=== PATIENT | female | born 1935 | race Caucasian/White ===

== ENCOUNTER → 2017-07-11 | Outpatient (CLI) | payer MEDICARE, BC ==
--- NOTE | 2017-07-11 13:56 | US ---
EXAMINATION TYPE: US thyroid st tissue head/neck DATE OF EXAM: 07/11/2017 COMPARISON: CLINICAL HISTORY: Thyromegaly E01.0. dysphagia, persistent cough GLAND SIZE: Right Lobe: 5.4 x 4.3 x 3.0 cm Overall Parenchyma: heterogenous Left Lobe: 3.7 x 2.1 x 1.7 cm Overall Parenchyma: heterogeneous Isthmus Thickness: 0.8 cm NODULES RIGHT: # of nodules measured on right: 1 1. 2.0 X 1.7 x 1.7 cm hypoechoic complex nodule at the lower pole or posterior to thyroid, unable t o determine exact location, with poorly defined margins. This nodule is taller than wide and shows n o intranodular vascularity. Prior size: No prior LEFT: # of nodules measured on left: 1 1. 1.8 X 1.6 x 1.7 cm hypoechoic mixed nodule at the mid pole with poorly defined margins. This no dule is taller than wide and shows intranodular vascularity. Prior size: No prior ISTHMUS: # of nodules measured in the isthmus: 0 Bilateral neck scanned, no evidence of lymphadenopathy. Thyroid appears overall heterogenous. Right lobe appears enlarged with echogenic foci with shadowing seen throughout the parenchyma. IMPRESSION: Findings likely represent multinodular goiter.
== END | disposition home or self-care (01) ==
LOC: RADUSWWP 12:35
PROVIDERS: ATTEND Surgery
DX: E01.0 Iodine-deficiency related diffuse (endemic) goiter (principal)
CPT/HCPCS: 76536

== ENCOUNTER 2017-08-08 12:06 | Day surgery (SDC) | payer MEDICARE, BC ==
[2017-08-08 13:03] VITALS: RESP 14; TEMP 98.3
[2017-08-08 13:55] VITALS: BP 178/75; PULSE 103
--- NOTE | 2017-08-08 14:11 | US ---
ULTRASOUND GUIDED FNA THYROID BIOPSY: CLINICAL HISTORY: Bilateral thyroid nodules FINDINGS: The procedure was explained to the patient. The risks, complications, benefits and alternatives were discussed and any questions were answered. Informed consent was obtained. Patient was placed supin e on the ultrasound table and prepped and draped in the usual sterile fashion. Utilizing a 25 gauge needle, five passes were made into the breast and right and requested left thyroid nodule. Patient was stable throughout the procedure. Pathology is pending. All elements of maximal barrier technique were utilized. IMPRESSION: 1. Successful ultrasound guided FNA thyroid biopsy.
== END 2017-08-08 14:03 | disposition home or self-care (01) ==
LOC: RADPROMAIN 12:06
PROVIDERS: ATTEND Surgery
DX: E04.1 Nontoxic single thyroid nodule (principal)
CPT/HCPCS: 10022; 76942; 88173; 88305

== ENCOUNTER 2017-08-29 10:36 | Inpatient (IN) | payer MEDICARE, BC ==
[2017-08-29 12:21] LABS: Anisocytosis Slight; Basophils % (A) 0 %; CH 28.6; CHCM 31.5; Eosinophils % (A) 0 %; HCT 36.6 % (34.0-46.0); HDW 2.49; HGB 11.5 gm/dL (11.4-16.0); Hypochromasia Slight; Luc # (Auto) 0.12; Luc % (Auto) 2; Lymphocytes % (A) 15 %; MCH 28.7 pg (25.0-35.0); MCHC 31.5 g/dL (31.0-37.0); MCV 90.9 fL (80.0-100.0); Mean Platelet Volume 7.2; Monocytes # (A) 0.2 k/uL (0-1.0); Monocytes % (A) 2 %; Neutrophils # (A) 5.3 k/uL (1.3-7.7); Neutrophils % (A) 81 %; RBC 4.03 m/uL (3.80-5.40); RDW 16.7 % (11.5-15.5); WBC 6.5 k/uL (3.8-10.6); WBC (Perox) 6.64
[2017-08-29 12:32] LABS: Calcium 8.5 mg/dL (8.4-10.2); Total Bilirubin 0.4 mg/dL (0.2-1.3); Total Protein 6.3 g/dL (6.3-8.2)
[2017-08-29 12:35] LABS: Potassium 2.7 mmol/L (3.5-5.1)
--- NOTE | 2017-08-29 12:45 | ED ---
Nausea/Vomiting/Diarrhea HPI - General Chief complaint: Nausea/Vomiting/Diarrhea Stated complaint: dehydration/dialysis pt Time Seen by Provider: 08/29/17 12:05 Source: patient, family, RN notes reviewed Mode of arrival: wheelchair Limitations: no limitations - History of Present Illness Initial comments: This is a 81-year-old female history of renal failure who is on. He'll dialysis who states she's been feeling weak and fatigued throughout the past couple months. She came in today however because she had nausea vomiting diarrhea. She attributes this to eating a tuna fish sandwich yesterday. She states she was at a adventism doing a function she ate half of a tunafish sandwich at the adventism hours later she ate the other half but it was on refrigerated. Shortly after she started developing nausea vomiting and diarrhea. This persisted throughout the night apparently she had decreased oral intake she feels generally weak she did have some chills and she had a low-grade fever this morning of 99. She denies any dysuria initially however she states that she was on antibiotics recently because of the perineal dialysis to the fluid was clear up until yesterday when started developing cloudiness. He has been given antibiotics. She was seen and Dr. Andres's office today given antibiotics she is here now with the above symptoms. Patient does states she has chronic sinus drainage that has had a nonproductive cough for some time now. MD complaint: nausea, vomiting, diarrhea, abdominal pain - Related Data Home Medications Medication Instructions Recorded Confirmed Dorzolamide HCl/Timolol Maleat 1 drop LEFT EYE BID 05/10/14 08/29/17 [Cosopt Eye Drops] Ketorolac 0.5% Ophth Soln [Acular 1 drops RIGHT EYE BID 05/10/14 08/29/17 0.5%] Latanoprost Ophth [Xalatan 0.005%] 1 drops LEFT EYE HS 05/10/14 08/29/17 prednisoLONE ACETATE 1% OPHTH 1 drop RIGHT EYE BID 05/10/14 08/29/17 [Pred Forte 1%] Cholecalciferol [Vitamin D3] 2,000 unit PO DAILY 06/10/16 08/29/17 Fluticasone Nasal [place] [Flonase 1 spr EA NOSTRIL DAILY 06/10/16 08/29/17 Nasal [place]] Potassium Chloride [K-Tab ER] 10 meq PO DAILY 06/10/16 08/29/17 Vit C/E/Zn/Coppr/Lutein/Zeaxan 1 cap PO BID 06/10/16 08/29/17 [Preservision Areds 2 Softgel] Metoprolol Tartrate 25 mg PO DAILY 07/25/17 08/29/17 Calcitriol 0.5 mcg PO MOFR 08/29/17 08/29/17 Calcium Carb-Mag Carb-Folic 1 tab PO W/LUNCH 08/29/17 08/29/17 [Magnebind 400] Magnesium Oxide [Mag-Ox] 400 mg PO DAILY 08/29/17 08/29/17 Vitamin B12 Sl 500 mcg PO DAILY 08/29/17 08/29/17 Previous Rx's Medication Instructions Recorded Aspirin 81 mg PO DAILY #0 chew 06/13/16 Allergies Allergy/AdvReac Type Severity Reaction Status Date / Time sevelamer carbonate Allergy Unknown Itching Verified 08/29/17 11:59 [From Bryon] Review of Systems ROS Statement: Those systems with pertinent positive or pertinent negative responses have been documented in the HPI. ROS Other: All systems not noted in ROS Statement are negative. Past Medical History Past Medical History: Eye Disorder, Hyperlipidemia, Hypertension, Renal Disease , Thyroid Disorder Additional Past Medical History / Comment(s): KIDNEY DISEASE, ANEMIA, CHRONIC ALLERGIES,GLAUCOMA. Home dialysis. Thyroid nodules. History of Any Multi-Drug Resistant Organisms: None Reported Past Surgical History: Joint Replacement, Tonsillectomy Additional Past Surgical History / Comment(s): JOSSELIN KNEE REPLACEMENT, RIGHT HIP REPLACEMENT, RT EYE SURGERY FOR GLAUCOMA. Past Anesthesia/Blood Transfusion Reactions: Motion Sickness Past Psychological History: No Psychological Hx Reported Smoking Status: Never smoker Past Alcohol Use History: None Reported Past Drug Use History: None Reported - Past Family History Father Family Medical History: Myocardial Infarction ([place]) Mother Family Medical History: CVA/TIA Daughter(s) Family Medical History: Hypertension Son(s) Family Medical History: Hypertension General Exam - General Exam Comments Initial Comments: This is a well-developed well-nourished awake alert oriented 3 female Limitations: no limitations ENT exam: Present: mucous membranes dry Respiratory exam: Present: decreased breath sounds Cardiovascular Exam: Present: regular rate, normal rhythm GI/Abdominal exam: Present: soft (No definite guarding or rebound), hernia, other (. He'll dialysis catheters present minimal discomfort to palpation that is generalized.). Absent: bruit, pulsatile mass Rectal exam: Present: deferred Course Vital Signs 08/29/17 08/29/17 08/29/17 10:46 12:43 14:00 Temperature 98.8 F Pulse Rate 61 98 92 Respiratory 16 18 19 Rate Blood Pressure 135/90 123/67 149/76 O2 Sat by Pulse 98 97 100 Oximetry 08/29/17 15:23 Temperature 97.4 F L Pulse Rate 99 Respiratory 16 Rate Blood Pressure 141/69 O2 Sat by Pulse 94 L Oximetry Medical Decision Making - Medical Decision Making I did discuss findings with patient family members patient will be admitted with consultation by Dr. Andres. - Lab Data Result diagrams: 08/29/17 12:07 08/29/17 12:07 Lab Results 08/29/17 08/29/17 08/29/17 Range/Units 12:07 12:07 12:07 WBC 6.5 (3.8-10.6) k/uL RBC 4.03 (3.80-5.40) m/uL Hgb 11.5 (11.4-16.0) gm/dL Hct 36.6 (34.0-46.0) % MCV 90.9 (80.0-100.0) fL MCH 28.7 (25.0-35.0) pg MCHC 31.5 (31.0-37.0) g/dL RDW 16.7 H (11.5-15.5) % Plt Count 385 (150-450) k/uL Neutrophils % 81 % Lymphocytes % 15 % Monocytes % 2 % Eosinophils % 0 % Basophils % 0 % Neutrophils # 5.3 (1.3-7.7) k/uL Lymphocytes # 1.0 (1.0-4.8) k/uL Monocytes # 0.2 (0-1.0) k/uL Eosinophils # 0.0 (0-0.7) k/uL Basophils # 0.0 (0-0.2) k/uL Hypochromasia Slight Anisocytosis Slight Sodium 130 L (137-145) mmol/L Potassium 2.7 L* (3.5-5.1) mmol/L Chloride 90 L (98-107) mmol/L Carbon Dioxide 27 (22-30) mmol/L Anion Gap 13 mmol/L BUN 29 H (7-17) mg/dL Creatinine 4.30 H (0.52-1.04) mg/dL Est GFR (MDRD) Af Amer 12 (>60 ml/min/1.73 sqM) Est GFR (MDRD) Non-Af 10 (>60 ml/min/1.73 sqM) Glucose 139 H (74-99) mg/dL Calcium 8.5 (8.4-10.2) mg/dL Magnesium 1.4 L (1.6-2.3) mg/dL Total Bilirubin 0.4 (0.2-1.3) mg/dL AST 25 (14-36) U/L ALT 39 (9-52) U/L Alkaline Phosphatase 225 H (38-126) U/L Total Protein 6.3 (6.3-8.2) g/dL Albumin 2.5 L (3.5-5.0) g/dL Amylase 34 (30-110) U/L Lipase 91 (23-300) U/L Urine Color Urine Appearance (Clear) Urine pH (5.0-8.0) Ur Specific [place] (1.001-1.035) Urine Protein (Negative) Urine Glucose (UA) (Negative) Urine Ketones (Negative) Urine Blood (Negative) Urine Nitrite (Negative) Urine Bilirubin (Negative) Urine Urobilinogen (<2.0) mg/dL Ur Leukocyte Esterase (Negative) Urine RBC (0-5) /hpf Urine WBC (0-5) /hpf Ur Squamous Epith Cells (0-4) /hpf Urine Bacteria (None) /hpf Urine Mucus (None) /hpf Urine Yeast (Budding) (None) /hpf 08/29/17 Range/Units 12:40 WBC (3.8-10.6) k/uL RBC (3.80-5.40) m/uL Hgb (11.4-16.0) gm/dL Hct (34.0-46.0) % MCV (80.0-100.0) fL MCH (25.0-35.0) pg MCHC (31.0-37.0) g/dL RDW (11.5-15.5) % Plt Count (150-450) k/uL Neutrophils % % Lymphocytes % % Monocytes % % Eosinophils % % Basophils % % Neutrophils # (1.3-7.7) k/uL Lymphocytes # (1.0-4.8) k/uL Monocytes # (0-1.0) k/uL Eosinophils # (0-0.7) k/uL Basophils # (0-0.2) k/uL Hypochromasia Anisocytosis Sodium (137-145) mmol/L Potassium (3.5-5.1) mmol/L Chloride (98-107) mmol/L Carbon Dioxide (22-30) mmol/L Anion Gap mmol/L BUN (7-17) mg/dL Creatinine (0.52-1.04) mg/dL Est GFR (MDRD) Af Amer (>60 ml/min/1.73 sqM) Est GFR (MDRD) Non-Af (>60 ml/min/1.73 sqM) Glucose (74-99) mg/dL Calcium (8.4-10.2) mg/dL Magnesium (1.6-2.3) mg/dL Total Bilirubin (0.2-1.3) mg/dL AST (14-36) U/L ALT (9-52) U/L Alkaline Phosphatase (38-126) U/L Total Protein (6.3-8.2) g/dL Albumin (3.5-5.0) g/dL Amylase (30-110) U/L Lipase (23-300) U/L Urine Color Yellow Urine Appearance Cloudy H (Clear) Urine pH 6.0 (5.0-8.0) Ur Specific [place] 1.020 (1.001-1.035) Urine Protein 3+ H (Negative) Urine Glucose (UA) 2+ H (Negative) Urine Ketones Trace H (Negative) Urine Blood Small H (Negative) Urine Nitrite Negative (Negative) Urine Bilirubin Negative (Negative) Urine Urobilinogen <2.0 (<2.0) mg/dL Ur Leukocyte Esterase Small H (Negative) Urine RBC 12 H (0-5) /hpf Urine WBC 47 H (0-5) /hpf Ur Squamous Epith Cells 71 H (0-4) /hpf Urine Bacteria Occasional H (None) /hpf Urine Mucus Rare H (None) /hpf Urine Yeast (Budding) Moderate H (None) /hpf - EKG Data -: EKG Interpreted by Me (Sinus rhythm rate of 98. Interval 160 QRS latter-day 78 QT since QTC of 3) EKG shows normal: sinus rhythm - Radiology Data Radiology results: report reviewed (Review the imaging there is some suspicious evidence of left lower lobe increased markings also evidence of side increased peritracheal stripe with possible deviation to the left. This is not acute), image reviewed Disposition Clinical Impression: Gastroenteritis, Food poisoning, Hypokalemia, Hypomagnesemia, End stage renal disease Disposition: ADMITTED IP TO THIS [facility] Condition: Stable Referrals: Mario Okeefe MD [Primary Care Provider] - 1-2 days
[2017-08-29 13:00] LABS: Appearance,Urine Cloudy (Clear); Bacteria,Urine Occasional /hpf; Bilirubin,Urine Negative (Negative); Glucose,Urine (UA) 2+ (Negative); Ketones,Urine Trace (Negative); Leukocyte Esterase,Urine Small (Negative); Mucus,Urine Rare /hpf; Nitrite,Urine Negative (Negative); Particle Count 8472; Protein,Urine 3+ (Negative); RBC,Urine 12 /hpf (0-5); Squamous Epithelial Cell,Urine 71 /hpf (0-4); UA Billing (MACRO vs. MICRO) MICRO; Urobilinogen,Urine <2.0 mg/dL (<2.0); WBC,Urine 47 /hpf (0-5)
--- NOTE | 2017-08-29 13:18 | XR ---
EXAMINATION TYPE: XR chest 2V DATE OF EXAM: 08/29/2017 COMPARISON: None HISTORY: 81-year-old female with cough TECHNIQUE: Frontal and lateral views FINDINGS: There is right paratracheal soft tissue prominence with some deviation of the trachea towards the lef t. Heart is normal size. Aorta and pulmonary vasculature within normal limits. There is a focal perip heral left basilar opacity partially silhouetting the hemidiaphragm. No significant pleural effusion. IMPRESSION: 1. Focal peripheral left basilar opacity could represent pneumonia in the correct clinical setting. F ollow-up after treatment to ensure clearance. 2. Right paratracheal soft tissue with deviation of the trachea towards the left. Findings could repr esent mass effect from an enlarged thyroid gland, lymphadenopathy, or a superior mediastinal mass. Co rrelate with any known diagnosis.
[2017-08-29] MEDS ORDERED: MAGNESIUM SULFATE-D5W PMX 1 GM in DEXTROSE/WATER 1 100ML.BAG IVPB ONE (13:57)
[2017-08-29] MEDS ORDERED: DIALYSIS (PERIT 2.5%) 2,000 ML 50 G/2,000 ML BAG INTRAPERIT SCH (14:15)
[2017-08-29] MEDS ORDERED: NALOXONE 0.4 MG/ML 1 ML VIAL IV PRN (15:45)
[2017-08-29] MEDS ORDERED: 0.9% NACL WITH KCL 20 MEQ/L 1,000 ML IV SCH (17:00)
[2017-08-29] MEDS ORDERED: HYDROmorphone 0.5 MG/0.5 ML SYRINGE IVP PRN (18:01)
[2017-08-29] MEDS ORDERED: TEMAZEPAM 15 MG CAP PO PRN (18:01)
[2017-08-29] MEDS ORDERED: VANCOMYCIN IV PER PHARMACY 1 EACH MISC MISCELLANE PRN (18:02)
[2017-08-29 18:21] LABS: RBC, Body Fluid 150 /uL
[2017-08-29 18:49] LABS: Potassium 2.7 mmol/L (3.5-5.1)
[2017-08-29] MEDS ORDERED: VANCOMYCIN 1,500 MG in SODIUM CHLORIDE 0.9% 250 ML IVPB ONE (19:00)
--- NOTE | 2017-08-29 19:40 | HP ---
HISTORY AND PHYSICAL CHIEF COMPLAINTS: Nausea, vomiting, diarrhea. HISTORY: This 81-year-old woman with a past medical history of multiple medical problems including history of chronic renal failure on CAPD, history hypertension, hyperlipidemia, hypothyroidism, history of degenerative joint disease, being followed by Dr. Bailey Amaro in the outpatient setting apparently had a fall about 1 month ago. Subsequently patient had cloudy dialysate from the CAPD. Patient was given vancomycin intraperitoneal. The fluid cleared, but since yesterday the patient went to [employer] and patient apparently ate half of a tuna fish sandwich and subsequently ate half of the sandwich later. Patient developed nausea and diarrhea. Patient severely dehydrated, patient had hypokalemia, patient admitted for further evaluation and treatment. There is no history of fever, rigors. No headache, loss of consciousness or seizures. PAST MEDICAL HISTORY: Hypertension, hyperlipidemia, chronic renal failure on CAPD. MEDICATIONS: Prior to admission home medications are: 1. Prednisone acetate 1 drop right eye b.i.d. 2. Vitamin B12. 3. K-Tab 10 mg p.o. daily. 4. Metoprolol 25 mg p.o. daily. 5. Magnesium oxide 400 daily. 6. Xalatan 1 drop left eye q.h.s. 7. ophthalmic eyedrops. 8. Fluticasone. 9. Cosopt 1 drop b.i.d. 10.Vitamin D3 2000 daily. 11.MagneBind 1 tab daily with lunch. 12.Calcitriol 0.5 b.i.d. 13.Aspirin 81 mg daily. ALLERGIES: RENAGEL. FAMILY HISTORY: History of myocardial infarction in the family. SOCIAL HISTORY: No history of smoking, no history of alcohol. REVIEW OF SYSTEMS: ENT: Diminished hearing, diminished vision. CARDIOVASCULAR: As mentioned earlier. RESPIRATORY: As mentioned earlier. GI: As mentioned earlier. : As mentioned earlier. NERVOUS SYSTEM: No numbness or weakness. ALLERGY/IMMUNOLOGY: No asthma or hayfever. MUSCULOSKELETAL: As mentioned earlier. HEMATOLOGY/ONCOLOGY: No history of anemia. ENDOCRINE: No history of diabetes or hypothyroidism. CONSTITUTIONAL: As mentioned earlier. DERMATOLOGY: Negative. RHEUMATOLOGY: Negative. PSYCHIATRY: As mentioned earlier. PHYSICAL EXAM: Patient is alert, oriented x3. The pulse is 109, blood pressure is 170/92, respiration 18, temperature 100.7, pulse ox 94% on room air. HEENT: Conjunctivae normal. Oral mucosa dry. NECK: No jugular venous distention. No carotid bruit. No lymph node enlargement. No thyroid enlargement. CARDIOVASCULAR: S1, S2. No S3, no S4. RESPIRATORY: Breath sounds diminished in the bases. A few scattered rhonchi. ABDOMEN: Soft, obese, nontender. No mass palpable. No guarding, no rigidity. Bowel sounds diminished. LEGS: No edema, no swelling. NERVOUS SYSTEM: Higher function as mentioned earlier. Moves all four limbs. No focal motor sensory deficits. LYMPHATICS: No lymphadenopathy in the neck, axillae or groin. SKIN: No ulcer, rash, bleeding. LABS: At this time shows CBC within normal limits. Sodium 130, potassium 2.9, creatinine is 4.3. ASSESSMENT: 1. Nausea, vomiting, diarrhea, possible acute gastroenteritis. 2. Possible sepsis with peritonitis. 3. History of recent bacterial peritonitis. 4. Chronic renal failure on CAPD. 5. Hyponatremia. 6. Hypokalemia. 7. Hypertension. 8. Hyperlipidemia. 9. Degenerative joint disease. RECOMMENDATIONS AND DISCUSSION: In this 81-year-old woman who presented with multiple complex medical issues, at this time we will monitor the patient closely. Continue the current medications. We will obtain stool for C difficile. Obtain cultures. Empiric antibiotics. Follow up closely with Nephrology. Guarded prognosis because of multiple complex medical issues. Further recommendations to follow. Copy of dictation forwarded to Bailey Amaro who is the primary physician. PAULINE / PEÑAN: [id number] / MTDD
[2017-08-29] MEDS: 0.9% NACL WITH KCL 20 MEQ/L 1,000 ML IV SCH (21:16)
[2017-08-29] MEDS: VIT A,C & E-LUTEIN-MINERALS 1 EACH TAB PO SCH (21:16)
[2017-08-29] MEDS: DORZOLAMIDE-TIMOLOL 2-0.5% DROPS 10 ML BTL LEFT EYE SCH (21:17)
[2017-08-29] MEDS: LATANOPROST 0.005% OPHTH DROPS 2.5 ML BTL LEFT EYE SCH (21:18)
[2017-08-29] MEDS: prednisoLONE ACETATE 1% OPHTH DROPS 5 ML BTL RIGHT EYE SCH (21:18)
[2017-08-29] MEDS: PANTOPRAZOLE 40 MG/10 ML VIAL IVP SCH (21:19)
[2017-08-29] MEDS: POTASSIUM CHLORIDE ER 20 MEQ TAB.ER PO SCH ×2 (21:19→23:06)
[2017-08-29] MEDS: KETOROLAC 0.5% OPHTH DROPS 5 ML BTL RIGHT EYE SCH (23:06)
[2017-08-29] MEDS: DIALYSIS (PERIT 1.5%) 2,000 ML 30 G/2,000 ML BAG INTRAPERIT SCH (23:45)
[2017-08-30] MEDS: DIALYSIS (PERIT 1.5%) 2,000 ML 30 G/2,000 ML BAG INTRAPERIT SCH (04:36)
[2017-08-30] MEDS ORDERED: LACTULOSE 20 GM/30 ML CUP PO PRN (07:54)
--- NOTE | 2017-08-30 08:09 | XR ---
EXAMINATION TYPE: XR abdomen 2V DATE OF EXAM: 08/30/2017 8:02 AM CLINICAL HISTORY: Abdominal pain TECHNIQUE: Single supine image of the abdomen is obtained. COMPARISON: None. FINDINGS: Scattered gas is seen in non-distended but mildly prominent small bowel loops and large bow el loops. The lung bases are clear and the osseous structures are intact. Dystrophic calcifications from most likely related to degenerative uterine fibroids are seen within the pelvis. Right femoral a rthroplasty is noted with mild degenerative changes the left femoral acetabular joint. Probable lamel lated gallstone is seen within the right upper quadrant. S-shaped scoliotic curvature of the visualiz ed thoracolumbar spine is seen with moderate degenerative changes. Peritoneal dialysis catheter overl ies the right lower quadrant. IMPRESSION: 1. Nonobstructive bowel gas pattern. Mildly prominent air-filled loops of bowel may represent mild il eus. 2. Probable lamellated singular gallstone.
[2017-08-30 08:26] LABS: Anisocytosis Slight; Basophils % (A) 1 %; CH 28.3; CHCM 30.7; Eosinophils # (A) 0.1 k/uL (0-0.7); Eosinophils % (A) 3 %; HCT 35.2 % (34.0-46.0); HDW 2.45; HGB 10.9 gm/dL (11.4-16.0); Hypochromasia Slight; Luc # (Auto) 0.14; Luc % (Auto) 4; Lymphocytes # (A) 1.2 k/uL (1.0-4.8); Lymphocytes % (A) 32 %; MCH 28.6 pg (25.0-35.0); MCHC 30.9 g/dL (31.0-37.0); MCV 92.6 fL (80.0-100.0); Mean Platelet Volume 7.6; Monocytes # (A) 0.2 k/uL (0-1.0); Monocytes % (A) 4 %; Neutrophils # (A) 2.1 k/uL (1.3-7.7); Neutrophils % (A) 56 %; RBC 3.81 m/uL (3.80-5.40); RDW 16.6 % (11.5-15.5); WBC 3.7 k/uL (3.8-10.6); WBC (Perox) 4.16
[2017-08-30] MEDS ORDERED: DIALYSIS DEX INTRAPERIT ONE (08:30)
[2017-08-30] MEDS ORDERED: CEFTAZIDIME INTRAPERIT ONE (08:30)
[2017-08-30] MEDS ORDERED: VANCOMYCIN INTRAPERIT ONE (08:30)
[2017-08-30] MEDS: DIALYSIS DEX INTRAPERIT ONE ×2 (08:39→13:44)
[2017-08-30] MEDS: VANCOMYCIN INTRAPERIT ONE ×2 (08:39→13:44)
[2017-08-30] MEDS: CEFTAZIDIME INTRAPERIT ONE ×2 (08:39→13:44)
[2017-08-30 08:40] LABS: Calcium 8.7 mg/dL (8.4-10.2); Magnesium 1.7 mg/dL (1.6-2.3); Potassium 4.3 mmol/L (3.5-5.1)
[2017-08-30] MEDS ORDERED: POTASSIUM CHLORIDE ER 10 MEQ TAB.ER.PRT PO SCH (09:00)
[2017-08-30] MEDS ORDERED: ASPIRIN 81 MG PO SCH (09:00)
--- NOTE | 2017-08-30 09:24 | P.NPCON ---
History of Present Illness - Reason for Consult end stage renal disease - History of Present Illness Reason for consultation: End-stage renal disease History of present illness: Patient is a 81-year-old female seen in renal consultation for end-stage renal disease. She is maintained on peritoneal dialysis. Patient presented to the hospital after developing abdominal pain along with vomiting and diarrhea after she had leftover tuna fish. Patient was recently diagnosed with gram-negative peritonitis and has completed a three-week course of intraperitoneal Fortaz. Her recent cell count was down to 6. However this admission are cell count is again over 4000 and there is concern for possible gram-positive organism since she just completed antibiotics for gram-negative peritonitis. Her fluid has been cloudy. Denies chest pain or shortness of breath. Admits to abdominal cramping. Her diarrhea seems to have resolved. She continues to have dry heaves. Potassium was low on admission which was replaced and is up to 4.3 this morning. She was also febrile on admission with a temperature of 100.7. Patient states she's been following the technique properly. Vital signs are stable. General: The patient appeared well nourished and normally developed. HEENT: Head exam is unremarkable. Neck is without jugular venous distension. LUNGS: Lungs are clear to auscultation and percussion. Breath sounds decreased. HEART: Rate and Rhythm are regular. First and second heart sounds normal. No murmurs, rubs or gallops. ABDOMEN: Abdominal exam reveals normal bowel sounds. Moderately distended. Generalized tenderness. EXTREMITITES: No clubbing, cyanosis, or edema. Past Medical History Past Medical History: Eye Disorder, Hyperlipidemia, Hypertension, Renal Disease , Thyroid Disorder Additional Past Medical History / Comment(s): KIDNEY DISEASE, ANEMIA, CHRONIC ALLERGIES[sinus drainage],GLAUCOMA. Home dialysis. Thyroid nodules. History of Any Multi-Drug Resistant Organisms: None Reported Past Surgical History: Joint Replacement, Tonsillectomy Additional Past Surgical History / Comment(s): JOSSELIN KNEE REPLACEMENT, RIGHT HIP REPLACEMENT, RT EYE SURGERY FOR GLAUCOMA. Past Anesthesia/Blood Transfusion Reactions: Motion Sickness Past Psychological History: No Psychological Hx Reported Smoking Status: Never smoker Past Alcohol Use History: None Reported Past Drug Use History: None Reported - Past Family History Father Family Medical History: Myocardial Infarction ([place]) Mother Family Medical History: CVA/TIA Daughter(s) Family Medical History: Hypertension Son(s) Family Medical History: Hypertension Medications and Allergies Home Medications Medication Instructions Recorded Confirmed Type Dorzolamide HCl/Timolol Maleat 1 drop LEFT EYE BID 05/10/14 08/29/17 History [Cosopt Eye Drops] Ketorolac 0.5% Ophth Soln [Acular 1 drops RIGHT EYE BID 05/10/14 08/29/17 History 0.5%] Latanoprost Ophth [Xalatan 0.005%] 1 drops LEFT EYE HS 05/10/14 08/29/17 History prednisoLONE ACETATE 1% OPHTH 1 drop RIGHT EYE BID 05/10/14 08/29/17 History [Pred Forte 1%] Cholecalciferol [Vitamin D3] 2,000 unit PO DAILY 06/10/16 08/29/17 History Fluticasone Nasal [place] [Flonase 1 spr EA NOSTRIL DAILY 06/10/16 08/29/17 History Nasal [place]] Potassium Chloride [K-Tab ER] 10 meq PO DAILY 06/10/16 08/29/17 History Vit C/E/Zn/Coppr/Lutein/Zeaxan 1 cap PO BID 06/10/16 08/29/17 History [Preservision Areds 2 Softgel] Aspirin 81 mg PO DAILY #0 chew 06/13/16 08/29/17 Rx Metoprolol Tartrate 25 mg PO DAILY 07/25/17 08/29/17 History Calcitriol 0.5 mcg PO MOFR 08/29/17 08/29/17 History Calcium Carb-Mag Carb-Folic 1 tab PO W/LUNCH 08/29/17 08/29/17 History [Magnebind 400] Magnesium Oxide [Mag-Ox] 400 mg PO DAILY 08/29/17 08/29/17 History Vitamin B12 Sl 500 mcg PO DAILY 08/29/17 08/29/17 History Allergies Allergy/AdvReac Type Severity Reaction Status Date / Time sevelamer carbonate Allergy Unknown Itching Verified 08/29/17 11:59 [From Bryon] Physical Exam Vitals: Vital Signs Temp Pulse Pulse Resp BP BP Pulse Ox 08/30/17 07:00 96.9 F L 89 16 150/77 97 08/29/17 23:00 99.2 F 89 16 140/63 93 L 08/29/17 20:51 115 H 147/73 08/29/17 17:57 100.4 F H 107 H 18 123/58 95 08/29/17 16:50 100.7 F H 109 H 19 117/57 94 L 08/29/17 16:10 101 H 19 153/70 95 08/29/17 15:23 97.4 F L 99 16 141/69 94 L 08/29/17 14:00 92 19 149/76 100 08/29/17 12:43 98 18 123/67 97 08/29/17 10:46 98.8 F 61 16 135/90 98 Intake and Output 08/29/17 08/30/17 08/30/17 22:59 06:59 14:59 Other: # Bowel Movements 1 Weight 71 kg Results - Lab Results Most recent lab results Calcium 8.7 mg/dL (8.4-10.2) 08/30/17 07:35 Magnesium 1.7 mg/dL (1.6-2.3) 08/30/17 07:35 08/30/17 07:35 08/30/17 07:35 Assessment and Plan Plan: Assessment: #1. End-stage renal disease maintained on peritoneal dialysis. #2. Recent gram-negative peritonitis status post 3 weeks of intraperitoneal Fortaz. Recent cell count was 6 earlier this week. #3. Recurrent peritonitis with cell count greater than 4000. She did receive 2 g of intraperitoneal vancomycin on 08/29/2017. #4. Hypokalemia from GI losses as well as from peritoneal dialysis. Magnesium also on the lower side. Improved post replacement. #5. Hypomagnesemia anemia from GI losses. Improved posterior placement. #6. Chronic kidney disease mineral bone disease maintained on magnabind and calcitriol. Plan: Continue with 2 L exchanges for 2.5% every 6 hours. Fortaz 1 g intraperitoneally daily. Repeat cell count culture and Gram stain today. Check abdominal x-ray. Lactulose as needed for constipation. Check phosphorus level. Tylenol Extra Strength as needed for pain. She will need re-education on peritoneal dialysis technique as an outpatient. Thank you for the consultation. I will continue to follow the patient with you during her hospital stay.
[2017-08-30] MEDS: ACETAMINOPHEN TAB 500 MG TAB PO PRN (09:33)
[2017-08-30] MEDS ORDERED: cefTAZidime 1.25 GM in DIALYSIS (PERITONL) DEX 2.5% 2,000 ML INTRAPERIT ONE (10:00)
[2017-08-30] MEDS: DORZOLAMIDE-TIMOLOL 2-0.5% DROPS 10 ML BTL LEFT EYE SCH ×2 (11:23→20:27)
[2017-08-30] MEDS: FLUTICASONE 50MCG/SPRAY NASAL 16GM EA NOSTRIL SCH (11:23)
[2017-08-30] MEDS: prednisoLONE ACETATE 1% OPHTH DROPS 5 ML BTL RIGHT EYE SCH ×2 (11:24→20:27)
[2017-08-30] MEDS: KETOROLAC 0.5% OPHTH DROPS 5 ML BTL RIGHT EYE SCH ×2 (11:24→20:26)
[2017-08-30] MEDS: IOHEXOL 350 MG/ML 25 ML BOTTLE (ORAL USE) PO PRN ×2 (11:34→12:43)
[2017-08-30] MEDS: PANTOPRAZOLE 40 MG/10 ML VIAL IVP SCH ×2 (12:18→20:27)
[2017-08-30] MEDS: METOPROLOL TARTRATE 25 MG TAB PO SCH (12:45)
[2017-08-30] MEDS: VIT A,C & E-LUTEIN-MINERALS 1 EACH TAB PO SCH ×2 (12:47→18:50)
[2017-08-30] MEDS: MAGNESIUM OXIDE 400 MG TAB PO SCH (12:48)
[2017-08-30] MEDS: CHOLECALCIFEROL 1,000 UNIT TAB PO SCH (12:48)
[2017-08-30] MEDS: CALCIUM CARB-MAG CARB-FOLIC 1 EACH TAB PO SCH (12:48)
[2017-08-30] MEDS: CALCITRIOL 0.25 MCG CAP PO SCH (12:48)
[2017-08-30] MEDS: CYANOCOBALAMIN 500 MCG TAB PO SCH (12:48)
--- NOTE | 2017-08-30 14:41 | CT ---
EXAMINATION TYPE: CT abdomen pelvis wo con DATE OF EXAM: 08/30/2017 COMPARISON: NONE INDICATION: Distention post dialysis DLP: 526.5 mGycm, Automated exposure control for dose reduction was used. CONTRAST: mL of . Study performed with Oral Contrast TECHNIQUE: Axial images were obtained from above the diaphragm to the pubic rami in the axial plane a t 5 mm thick sections. Reconstructed images are reviewed on the computer in the coronal plane. FINDINGS: Very Limited CT sections are obtained the lung bases. Minimal subsegmental atelectasis may be presen t. Small hiatal hernia is present with reflux. Coronary artery calcification is present.. CT ABDOMEN: Ascites is present. Intraperitoneal dialysis catheter is evident. Liver: Normal Spleen: Normal Pancreas: Atrophy Adrenal glands: The adrenal glands are normal. Gallbladder: Wall calcification is present. Kidneys: Bilateral renal atrophy is present. There is a small cyst on the inferior right kidney. Vasc ular calcifications within the left kidney. Aorta: Vascular calcification is within the aorta. Inferior vena cava: Normal. CT PELVIS: Fluid and a periumbilical hernia is evident. Free fluid is within the pelvis. Loops of bowel within the abdomen and pelvis are normal. Diverticular changes are through the sig moid colon. Loops of bowel distended with oral contrast appear normal. Appendix: Not identified Urinary bladder: Decompressed with limited evaluation Genitourinary structures: Large calcifications in the uterus. Adnexal regions appear clear Osseous structures: Right hip prosthesis is present. Degenerative disc changes are within the lumbar spine. IMPRESSIONS: 1. Sigmoid diverticulosis without acute diverticulitis. 2. Porcelain gallbladder. 3. Ascites versus peritoneal dialysis fluid. 4. Renal and pancreas atrophy
[2017-08-30] MEDS ORDERED: DIALYSIS (PERITONL) DEX 2.5% 2,000 ML INTRAPERIT SCH (15:00)
--- NOTE | 2017-08-30 15:18 | P.PN ---
Progress Note - Text Addendum for Dr. Stein / H&P Under Assessment: 2. Possible sepsis. With peritonitis, possible peritonitis secondary to CAPD catheter.
--- NOTE | 2017-08-30 16:32 | CONS ---
CONSULTATION DATE OF SERVICE: 08/30/2017. REASON FOR CONSULTATION: Sepsis. HISTORY OF PRESENT ILLNESS: The patient is a 81-year-old, female with past medical history significant for end-stage renal disease, on peritoneal dialysis. The patient apparently recently did have episode of PD catheter associated peritonitis gram-negative and has finished the course of Fortaz at the recommendation of the line maintenance technician. She presented to the ER at [facility] yesterday afternoon with chief complaint of nausea, vomiting and diarrhea. Apparently symptoms started the day prior to presentation to the hospital. The patient did mention that 2 days prior to that she did have a tuna sandwich for lunch that she did not finish. She kept with sandwich in her bag and later on ate it at home. Later on she started having nausea, vomiting and diarrhea. The patient denies any high-grade fever at home. No blood or mucus in the stool. On arrival to the ER at [facility] she was afebrile but subsequently did spike a fever of 100.7. Workup in the ER did include normal white count. The patient did have a peritoneal fluid sent for analysis, which did show 4350 nucleated cells and cloudy peritoneal fluid. The patient was started on ceftazidime during dialysis fluid and did received dose of vancomycin. ID has been consulted for further recommendation regarding antibiotic therapy. The patient did mention she did have pain when she did have peritoneal dialysis session as apparently the p.o. ceftazidime has not completely emptied out. The patient felt nauseated but no vomiting. No further diarrhea. No chest pain, shortness of breath or cough. REVIEW OF SYSTEMS: CONSTITUTIONAL: Positive for weakness and low-grade fever. EYES: No complaint. ENT: No complaint. RESPIRATORY: No complaint. CARDIOVASCULAR: No complaint. GENITOURINARY: No complaint. GASTROINTESTINAL: As per HPI. MUSCULOSKELETAL: No complaint. INTEGUMENTARY: No complaint. PSYCHOLOGICAL: No complaint. ENDOCRINE: No complaint. NEUROLOGICAL: No complaint. PAST MEDICAL HISTORY: Significant for a end-stage renal disease on peritoneal dialysis, hypertension, hyperlipidemia, hypothyroidism, chronic allergies. PAST SURGICAL HISTORY: Bilateral knee replacement. Right hip replacement. Right eye surgery for glaucoma, tonsillectomy and peritoneal dialysis catheter placement. SOCIAL HISTORY: No history of smoking, drinking, or drug use. FAMILY HISTORY: Father history of [place], mother with a history of CVA and TIA. ALLERGIES: carbonate. MEDICATION: Medications include the patient is currently on Tylenol, [place], Rocaltrol, ceftazidime in the peritoneal dialysis fluid, vitamin B12, vancomycin she did receive 1 dose , Dilaudid, lactulose, Mag oxide, Lopressor, Narcan, Zofran, Protonix, and Restoril. EXAMINATION: Blood pressure 150/77 with a pulse of 89, temperature 96.9. She is 97% on room air. General description is an elderly female, lying in bed, in no distress. No tachypnea or accessory muscle of respiration use. HEENT examination is slight pallor. No scleral icterus. Oral mucous membranes dry. NECK: Trachea is central. No thyromegaly. LUNGS: Unlabored breathing. Clear to auscultation anteriorly. HEART: S1, S2. Regular rate and rhythm. ABDOMEN: Soft, mildly distended. Mildly tender to touch. No guarding, no rigidity. The peritoneal dialysis catheter insertion site with no evidence of internal infection. EXTREMITIES: No edema feet. SKIN EXAMINATION: no rash or mass palpable. NEUROLOGICAL: Patient is awake, alert, oriented x3. Mood and affect normal. LAB: Peritoneal fluid is cloudy with 4350 nucleated cells, hemoglobin is 12.1, white count 3.7, BUN of 30 with creatinine 4.50. Vancomycin level was 41. Peritoneal fluid cultures currently pending. Blood culture obtained which is currently pending. DIAGNOSTIC IMPRESSION AND PLAN: Patient presented to hospital with nausea, vomiting, diarrhea and abdominal pain in a patient who did have a cloudy peritoneal fluid and recently finished treatment for gram- negative. Peritoneal dialysis catheter peritonitis likely representing another episode of peritonitis. There is no evidence of any of any infection but seemed gram- negative or gram-positive. Will need to not rule out and await for the culture. Clinically no other clinical focus of infection to account for her fever. CT Abd/pelvis has been ordered. Will await for it to be finalized. PLAN: 1. We will recommend keeping the patient on vancomycin pharmacy to dose along with Fortaz in the peritoneal dialysis fluid. 2. We will follow her clinical condition as well as cultures to adjust antibiotics further if needed. 3. Thank you for this consultation. Will follow this patient along with you. MMODL / IJN: [id number] / [facility] HOSPITALRenea
[2017-08-30] MEDS: DIALYSIS (PERITONL) DEX 2.5% 2,000 ML INTRAPERIT SCH (17:33)
[2017-08-30] MEDS: 0.9% NACL WITH KCL 20 MEQ/L 1,000 ML IV SCH (17:34)
--- NOTE | 2017-08-30 18:11 | PN ---
PROGRESS NOTE DATE OF SERVICE: 08/30/2017 INTERVAL HISTORY: This 81-year-old woman was admitted with nausea and vomiting, diarrhea, possibly acute gastroenteritis, possible sepsis with peritonitis secondary to CAPD catheter is also a possibility. Abdomen and pelvis CAT scan was done, patient on broad-spectrum IV antibiotics. Abdomen CT scan showed sigmoid diverticulosis without any diverticulitis, possibly gallbladder ascites as well as renal and pancreas atrophy. Cultures are negative at this time. The patient is still complaining of some nausea. Diarrhea seems to be slightly better. The white count is 3.7, sodium 133, potassium is improved. Peritoneal fluid is still cloudy with 4350 nucleated cells. PAST MEDICAL HISTORY: Reviewed. REVIEW OF SYSTEM: Cardiology: No angina or palpitations. Respiratory: As mentioned earlier. GI: As mentioned earlier. : As mentioned earlier. Central nervous system: No numbness or weakness. CURRENT MEDICATIONS ARE: 1. Tylenol 500 mg q.8h p.r.n. 2. [place] 5 mg. 3. Magnavite 400 mg. 4. Rocaltrol 0.5 mg Saturday, Saturday and Saturday. 5. Ceftazidime 2 g IV q.8. 6. Vitamin D3 2000 daily. 7. Vitamin B12 500 mg daily. 8. Dilaudid 0.5 q.6h p.r.n. 12.Lopressor 25 mg daily. 13.Narcan 0.2 q.2h p.r.n. 14.Zofran 4 mg p.o. b.i.d. 15.Protonix. 16.Restoril. PHYSICAL EXAM: Patient is alert, oriented x3. Pulse 97, blood pressure 160/77, respiratory rate 20, temperature 97.4, pulse ox 94% on room air. HEENT: Conjunctivae normal. Oral mucosa moist. Neck is no jugular venous distention. No carotid bruit. No lymph node enlargement. Cardiovascular is S1, S2. No S3. Respiratory: Breath sounds diminished at the bases. No rhonchi, no crackles. ABDOMEN: Soft. Mild diffuse distention and ascites present, status post CAPD. Legs: Minimal edema. Nervous system: Diffusely weak. LAB STUDIES: WBC 8.5, hemoglobin 10.9 sodium 133. ASSESSMENT: 1. Nausea, vomiting and diarrhea possible acute gastroenteritis. 2. Possible acute peritonitis with sepsis secondary to CAPD catheter. 3. History of chronic renal failure on CAPD. 4. History of recent bacterial peritonitis. 5. Hyponatremia. 6. Hypokalemia. 7. Hypertension. 8. Hyperlipidemia. 9. History of degenerative joint disease. RECOMMENDATIONS AND DISCUSSION: 1. Recommend to continue current medications. 2. Continue symptomatic treatment. 3. Otherwise at this time I recommend continue broad spectrum IV antibiotics. 4. Follow the cultures. 5. CT scan of the abdomen and pelvis was ordered yesterday by me which was reviewed showed no acute abnormality. No pathologies noted. 6. Hypokalemia improved significantly. Monitor lytes closely. 7. Creatinine is 4.5. 8. Closely follow with Nephrology and infectious Disease. Guarded prognosis because of multiple complex medical issues. Further recommendations to follow. MMODL / IJN: [id number] / JOHN
[2017-08-30] MEDS: LATANOPROST 0.005% OPHTH DROPS 2.5 ML BTL LEFT EYE SCH (20:26)
[2017-08-31] MEDS: DIALYSIS (PERITONL) DEX 2.5% 2,000 ML INTRAPERIT SCH ×3 (01:15→17:55)
[2017-08-31 07:30] LABS: Anisocytosis Slight; Basophils % (A) 0 %; CH 28.1; CHCM 30.5; Eosinophils # (A) 0.4 k/uL (0-0.7); Eosinophils % (A) 6 %; HCT 34.7 % (34.0-46.0); HDW 2.48; HGB 10.7 gm/dL (11.4-16.0); Hypochromasia Moderate; Luc # (Auto) 0.23; Luc % (Auto) 4; Lymphocytes # (A) 2.2 k/uL (1.0-4.8); Lymphocytes % (A) 34 %; MCH 28.5 pg (25.0-35.0); MCHC 30.9 g/dL (31.0-37.0); MCV 92.3 fL (80.0-100.0); Mean Platelet Volume 7.4; Monocytes # (A) 0.3 k/uL (0-1.0); Monocytes % (A) 5 %; Neutrophils # (A) 3.4 k/uL (1.3-7.7); Neutrophils % (A) 52 %; RBC 3.75 m/uL (3.80-5.40); RDW 16.7 % (11.5-15.5); WBC 6.5 k/uL (3.8-10.6); WBC (Perox) 6.93
[2017-08-31 07:43] LABS: Calcium 8.7 mg/dL (8.4-10.2); Potassium 4.2 mmol/L (3.5-5.1)
[2017-08-31] MEDS ORDERED: cefTAZidime 1.25 GM in DIALYSIS (PERITONL) DEX 2.5% 2,000 ML INTRAPERIT SCH (09:00)
[2017-08-31] MEDS: PANTOPRAZOLE 40 MG/10 ML VIAL IVP SCH ×2 (09:34→20:20)
[2017-08-31] MEDS: DORZOLAMIDE-TIMOLOL 2-0.5% DROPS 10 ML BTL LEFT EYE SCH ×2 (09:35→20:22)
[2017-08-31] MEDS: FLUTICASONE 50MCG/SPRAY NASAL 16GM EA NOSTRIL SCH (09:35)
[2017-08-31] MEDS: prednisoLONE ACETATE 1% OPHTH DROPS 5 ML BTL RIGHT EYE SCH ×2 (09:35→20:20)
[2017-08-31] MEDS: METOPROLOL TARTRATE 25 MG TAB PO SCH (09:35)
[2017-08-31] MEDS: KETOROLAC 0.5% OPHTH DROPS 5 ML BTL RIGHT EYE SCH ×2 (09:35→20:21)
[2017-08-31] MEDS: VIT A,C & E-LUTEIN-MINERALS 1 EACH TAB PO SCH ×2 (09:35→17:32)
--- NOTE | 2017-08-31 12:38 | P.PN ---
Subjective Persistent peritonitis. She recently had gram-negative peritonitis and had completed a three-week course of intraperitoneal Fortaz. Her cell count had gone down to 6 but on this admission, her white count has gone up to 43,50, cultures are still pending it was 93% polys. Her pain is better today continues to have some rebound. Appetite is back today after the last 5-6 days. No nausea or vomiting. No shortness of breath. She is on 4 exchanges of 2200 mL 2.5% for the last 24 hours. She has retained a total of 700 mL. She feels somewhat full Objective - Vital Signs Vital signs: Vital Signs Temp 97.7 F 08/31/17 07:00 Pulse 75 08/31/17 10:43 Resp 24 08/31/17 08:00 BP 146/87 08/31/17 10:43 Pulse Ox 93 L 08/31/17 07:00 Intake & Output 08/30/17 08/31/17 08/31/17 18:59 06:59 18:59 Intake Total 240 Balance 240 Weight 71 kg 71 kg Intake: Oral 240 Other: Voiding Method Bedside Commode # Voids 1 On exam she is awake alert oriented comfortable. Not in any distress. HEENT exam no JVP lymphadenopathy thyromegaly neck is supple no facial asymmetry Lungs are clear to auscultation percussion good air entry bilaterally Heart sounds are unremarkable for any murmur rub gallop Abdomen soft but rebound is positive. No masses felt Neurologically awake alert oriented. No asterixis Vital signs are as somewhat high blood pressure in the 140-190 systolic range. she is afebrile - Labs CBC & Chem 7: 08/31/17 06:56 08/31/17 06:56 Labs: Abnormal Lab Results - Last 24 Hours (Table) 08/31/17 08/31/17 Range/Units 06:56 06:56 RBC 3.75 L (3.80-5.40) m/uL Hgb 10.7 L (11.4-16.0) gm/dL MCHC 30.9 L (31.0-37.0) g/dL RDW 16.7 H (11.5-15.5) % Sodium 130 L (137-145) mmol/L Chloride 93 L (98-107) mmol/L BUN 34 H (7-17) mg/dL Creatinine 4.57 H (0.52-1.04) mg/dL Microbiology - Last 24 Hours (Table) 08/31/17 02:10 Body Fluid Culture - Preliminary Peritoneal Fluid 08/29/17 18:21 Blood Culture - Preliminary Blood No Growth after 24 hours 08/29/17 17:00 Gram Stain - Preliminary Peritoneal Fluid Body Fluid Culture - Preliminary Assessment and Plan Plan: Impression 1. CAPD associated peritonitis. Recent outpatient gram-negative peritonitis treated with intraperitoneal Fortaz for 3 weeks with white count going down to 6 and now recurrent peritonitis with count on 08/29/2017 2 days ago was 4350 with 97% polys. This indicated of a persistent infection. We're waiting for the repeat cultures to come back. 2. Slight improvement in her subjective pain. 3. On manual exchanges, 4 exchanges of 2.5% , 2200, she retained 700 mL over the last 4 exchanges 4. Sodium is 1:30 secondary to dilution from dialysis and fluid intake 5. Anemia hemoglobin is 10.7 at target 6. MBD calcium and phosphorus are target. Recommendation. Will maintain 2.5% and see what the current drainage is and may change to 4.5F she has inadequate fluid removal. Redo CAPD culture Gram stain and cell count and call me with the results. 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 This was discussed with her. We'll also start her on Lasix 80 twice a day.
[2017-08-31] MEDS: 0.9% NACL WITH KCL 20 MEQ/L 1,000 ML IV SCH (12:49)
[2017-08-31] MEDS: cefTAZidime 1.25 GM in DIALYSIS (PERITONL) DEX 2.5% 2,000 ML INTRAPERIT SCH (12:49)
[2017-08-31] MEDS: CHOLECALCIFEROL 1,000 UNIT TAB PO SCH (14:19)
[2017-08-31] MEDS: CYANOCOBALAMIN 500 MCG TAB PO SCH (14:19)
[2017-08-31] MEDS: CALCIUM CARB-MAG CARB-FOLIC 1 EACH TAB PO SCH (14:19)
[2017-08-31] MEDS: FUROSEMIDE 80 MG TAB PO SCH (15:04)
[2017-08-31] MEDS: MAGNESIUM OXIDE 400 MG TAB PO SCH (15:05)
--- NOTE | 2017-08-31 18:03 | PN ---
PROGRESS NOTE DATE OF SERVICE: 08/31/2017 INTERVAL HISTORY: This 81-year-old woman who was admitted with nausea, vomiting, possible acute sepsis secondary to peritonitis is being closely monitored. The patient is feeling slightly better. No chest pain. No palpitations. No fever. Peritoneal dialysis fluid output is still cloudy. PHYSICAL EXAM: Alert and oriented times three. Pulse 86, blood pressure 194/86 improved to 140/87, respiratory rate 20, temperature 97.7, pulse ox 93% on room air. HEENT is conjunctivae normal. Neck is no JVD. Cardiovascular: S1, S2 muffled. Respiratory: Breath sounds diminished in the bases. A few scattered rhonchi. No crackles. Abdomen is soft. Abdominal peritoneal cavity fluid present, nontender. Peritoneal dialysis catheter present. Legs: Minimal edema. Central nervous system: No focal deficits. LAB STUDIES: WBC 6.2, hemoglobin 7.9, sodium 130, cultures are negative so far. ASSESSMENT: 1. Nausea, vomiting and diarrhea possible acute gastroenteritis. 2. Possible acute peritonitis with sepsis secondary to CAPD catheter. 3. History of chronic renal function, CAPD. 4. History of recent bacterial peritonitis. 5. Hyponatremia. 6. Hypokalemia. 7. Hypertension essential. 8. Hyperlipidemia. 9. History of degenerative joint disease. RECOMMENDATIONS AND DISCUSSION: Recommend to continue current medications, continue to monitor, symptomatic treatment. Otherwise at this time, we will monitor the patient closely. Continue with current medications. Follow the cultures. Empiric antibiotics. Guarded prognosis. Further recommendations to follow. MMMARCO ANTONIOL / IJN: [id number] /
[2017-08-31] MEDS: LATANOPROST 0.005% OPHTH DROPS 2.5 ML BTL LEFT EYE SCH (20:21)
--- NOTE | 2017-08-31 21:39 | PN ---
PROGRESS NOTE DATE OF SERVICE: 08/31/2017 REASON FOR FOLLOWUP: PD catheter associated peritonitis. INTERVAL HISTORY: The patient is afebrile. Her abdominal pain has slightly eased off. The patient has no nausea, vomiting and no diarrhea. Denies any chest pain, shortness of breath or cough. EXAMINATION: Blood pressure 132/79 with a pulse of 69, temperature of 98. She is 91% on room air. General description is an elderly female lying in bed, in no distress. RESPIRATORY SYSTEM: Unlabored breathing. Clear to auscultation anteriorly. HEART: S1, S2. Regular rate and rhythm. Abdomen is soft, minimally tender. No guarding or rigidity. LABS: Hemoglobin is 10.7, white count 6.5 with a BUN of 34, creatinine 4.57. The peritoneal fluid culture is currently pending. Blood culture so far negative. DIAGNOSTIC IMPRESSION AND PLAN: Patient with recent gram-negative peritonitis in a patient who is peritoneal dialysis dependent, did have peritoneal fluid that was cloudy with elevated white count. We are waiting for the culture to finalize. In view of the overall response to the Fortaz whether or not it should be continued, adjusting it further based on the culture report. Continue supportive care. MMODL / IJN: [id number] /
[2017-09-01] MEDS: DIALYSIS (PERITONL) DEX 2.5% 2,000 ML INTRAPERIT SCH ×3 (00:30→17:55)
[2017-09-01 06:57] LABS: Anisocytosis Slight; Basophils % (A) 0 %; CHCM 30.6; Eosinophils # (A) 0.5 k/uL (0-0.7); Eosinophils % (A) 7 %; HCT 32.9 % (34.0-46.0); HDW 2.54; HGB 10.3 gm/dL (11.4-16.0); Hypochromasia Moderate; Luc % (Auto) 4; Lymphocytes # (A) 1.9 k/uL (1.0-4.8); Lymphocytes % (A) 25 %; MCH 28.7 pg (25.0-35.0); MCHC 31.3 g/dL (31.0-37.0); MCV 91.7 fL (80.0-100.0); Mean Platelet Volume 7.2; Monocytes # (A) 0.4 k/uL (0-1.0); Monocytes % (A) 6 %; Neutrophils # (A) 4.3 k/uL (1.3-7.7); Neutrophils % (A) 58 %; RBC 3.59 m/uL (3.80-5.40); RDW 16.5 % (11.5-15.5); WBC 7.4 k/uL (3.8-10.6); WBC (Perox) 7.95
[2017-09-01 07:13] LABS: Calcium 8.2 mg/dL (8.4-10.2); Potassium 3.6 mmol/L (3.5-5.1)
[2017-09-01] MEDS: PANTOPRAZOLE 40 MG/10 ML VIAL IVP SCH ×2 (07:17→22:18)
[2017-09-01] MEDS: VIT A,C & E-LUTEIN-MINERALS 1 EACH TAB PO SCH ×2 (09:09→15:58)
[2017-09-01] MEDS: FLUTICASONE 50MCG/SPRAY NASAL 16GM EA NOSTRIL SCH (09:10)
[2017-09-01] MEDS: METOPROLOL TARTRATE 25 MG TAB PO SCH (09:10)
[2017-09-01] MEDS: FUROSEMIDE 80 MG TAB PO SCH ×2 (09:10→15:58)
[2017-09-01] MEDS: prednisoLONE ACETATE 1% OPHTH DROPS 5 ML BTL RIGHT EYE SCH ×2 (09:11→22:15)
[2017-09-01] MEDS: KETOROLAC 0.5% OPHTH DROPS 5 ML BTL RIGHT EYE SCH ×2 (09:11→22:16)
[2017-09-01] MEDS: DORZOLAMIDE-TIMOLOL 2-0.5% DROPS 10 ML BTL LEFT EYE SCH ×2 (10:27→22:15)
[2017-09-01] MEDS: cefTAZidime 1.25 GM in DIALYSIS (PERITONL) DEX 2.5% 2,000 ML INTRAPERIT SCH (12:17)
[2017-09-01] MEDS: LACTULOSE 20 GM/30 ML CUP PO SCH ×3 (12:39→22:17)
[2017-09-01] MEDS: ONDANSETRON 4 MG/2 ML VIAL IVP PRN ×2 (12:46→22:17)
[2017-09-01] MEDS: METOCLOPRAMIDE 5 MG/ML 2 ML VIAL IVP SCH ×2 (13:31→18:10)
--- NOTE | 2017-09-01 13:33 | P.PN ---
Subjective Mrs. Zhang is a 81-year-old old female with CAPD peritonitis. She recently had gram-negative peritonitis and had completed a three-week course of intraperitoneal Fortaz. Her cell count had gone down to 6 but on this admission , her white count has gone up to 43,50, cultures are still pending it was 93% polys. She continues to have pain and rebound tenderness. The effluent from the peritoneal dialysis is cloudy. His cell count which was ordered yesterday has not been done and therefore new order has been placed for today to be done stat. We need to make a determination whether this Needs to Come out. She Is Ultrafiltrating about 600 ML on and off with a 2.5% Solution 4 Exchanges a Day. No Fever or Chills No Nausea Vomiting Diarrhea. Appetite Is Fair. This is the first episode of peritonitis as an outpatient in about 3 years of being on dialysis. She is known with bilateral knee replacement hip replacements and Objective - Vital Signs Vital signs: Vital Signs Temp 97.7 F 09/01/17 07:00 Pulse 72 09/01/17 08:00 Resp 18 09/01/17 08:00 BP 159/81 09/01/17 07:00 Pulse Ox 97 09/01/17 07:00 Intake & Output 08/31/17 09/01/17 09/01/17 18:59 06:59 18:59 Intake Total 340 Balance 340 Weight 74.5 kg Intake: Oral 340 Other: Voiding Method Bedside Commode Toilet Toilet # Voids 1 # Bowel Movements 1 Early on exam she is awake alert oriented comfortable She has right eye atrophy. Otherwise HEENT exam is unremarkable for any JVP neck is supple no facial asymmetry Lungs are clear to auscultation with an occasional coarse crackle at bases good air entry no dullness to percussion Heart sounds are unremarkable for any murmur rub gallop Abdomen is tender with rebound tenderness positive. Extremity exam was no edema Neurologically awake alert oriented No asterixis. - Labs CBC & Chem 7: 09/01/17 06:19 09/01/17 06:19 Labs: Abnormal Lab Results - Last 24 Hours (Table) 09/01/17 09/01/17 Range/Units 06:19 06:19 RBC 3.59 L (3.80-5.40) m/uL Hgb 10.3 L (11.4-16.0) gm/dL Hct 32.9 L (34.0-46.0) % RDW 16.5 H (11.5-15.5) % Sodium 128 L (137-145) mmol/L Chloride 92 L (98-107) mmol/L BUN 31 H (7-17) mg/dL Creatinine 4.53 H (0.52-1.04) mg/dL Calcium 8.2 L (8.4-10.2) mg/dL Microbiology - Last 24 Hours (Table) 08/31/17 02:10 Gram Stain - Preliminary Peritoneal Fluid Body Fluid Culture - Preliminary 08/31/17 13:35 Urine Culture - Preliminary Urine,Voided 08/29/17 18:21 Blood Culture - Preliminary Blood No Growth after 48 hours 08/29/17 17:00 Gram Stain - Preliminary Peritoneal Fluid Body Fluid Culture - Preliminary Assessment and Plan Plan: Impression 1. CAPD associated peritonitis. Recent outpatient gram-negative peritonitis treated with intraperitoneal Fortaz for 3 weeks with white count going down to 6 and now recurrent peritonitis with count on 08/29/2017 2 days ago was 4350 with 97% polys. This indicative of a persistent infection. We're waiting for the repeat cell count cultures to come back, but given the cloudy effluent and pain it is very likely this catheter needs to come out by tomorrow. A final determination will be made based on the cell count which is pending from this morning and is stat or. 2. Slight improvement in her subjective pain. 3. On manual exchanges, 4 exchanges of 2.5% , 2200, she ultrafiltrate 1200 mL approximately over the last 4 exchanges. 4. Sodium is 1:30 > 128, secondary to dilution from dialysis and fluid intake 5. Anemia hemoglobin is 10.7 > 10.3 at target, but the tenderness coming down 6. MBD calcium and phosphorus are target. Recommendation. Will maintain 2.5% and watch her sodium. Redo CAPD cell count and call me with the results. 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 This was discussed with her. Continue on Lasix 80 twice a day.
[2017-09-01] MEDS: MAGNESIUM OXIDE 400 MG TAB PO SCH (13:47)
[2017-09-01] MEDS: CALCIUM CARB-MAG CARB-FOLIC 1 EACH TAB PO SCH (13:47)
[2017-09-01] MEDS: CYANOCOBALAMIN 500 MCG TAB PO SCH (13:47)
[2017-09-01] MEDS: CHOLECALCIFEROL 1,000 UNIT TAB PO SCH (13:47)
[2017-09-01] MEDS: DARBEPOETIN ALFA 60 MCG/0.3 ML SYRINGE SQ SCH (14:37)
[2017-09-01 15:01] LABS: RBC, Body Fluid 80 /uL
[2017-09-01] MEDS: hydrALAZINE HCL 20 MG/ML 1 ML VIAL IVP PRN (15:58)
[2017-09-01] MEDS: HYDROcodone/APAP 5-325MG 1 EACH TAB PO PRN (18:02)
[2017-09-01] MEDS: LATANOPROST 0.005% OPHTH DROPS 2.5 ML BTL LEFT EYE SCH (22:15)
[2017-09-02] MEDS: DIALYSIS (PERITONL) DEX 2.5% 2,000 ML INTRAPERIT SCH ×3 (00:09→18:04)
[2017-09-02] MEDS: hydrALAZINE HCL 20 MG/ML 1 ML VIAL IVP PRN (00:12)
[2017-09-02] MEDS: METOCLOPRAMIDE 5 MG/ML 2 ML VIAL IVP SCH ×4 (00:18→17:38)
--- NOTE | 2017-09-02 06:29 | PN ---
PROGRESS NOTE DATE OF SERVICE: 09/01/2017 REASON FOR FOLLOWUP: PD catheter associated peritonitis. INTERVAL HISTORY: The patient is afebrile. Abdominal pain has slightly improved. The patient denies significant chest pain, shortness of breath or cough and no diarrhea. PHYSICAL EXAMINATION: On examination, blood pressure is is 159/81 with a pulse of 72, temperature 97.7. She is 97% on room air. General description is an elderly female, lying in bed, in no distress. RESPIRATORY SYSTEM: Unlabored breathing. Clear to auscultation anteriorly. HEART: S1, S2. Regular rate and rhythm. ABDOMEN: Soft. Mild tenderness. No guarding. No rigidity. LABS: Hemoglobin is 10.3 with a white count 7.4. BUN of 31 creatinine 4.53. Repeat peritoneal fluid shows overall improvement with white count down to 520. Initial cultures remain to be negative. Blood culture so far negative. DIAGNOSTIC IMPRESSION AND PLAN: Patient with PD catheter associated peritonitis admitted to the hospital with abdominal pain, nausea and vomiting. The patient did have overall improvement as far as her white count is concerned in the peritoneal fluid. She will continue Fortaz. Will discuss with Nephrology about the culture in outpatient setting. Continue with supportive care. MMODL / IJN: [id number] /
[2017-09-02 07:34] LABS: Anisocytosis Slight; Basophils % (A) 0 %; CH 28.1; CHCM 30.2; Eosinophils % (A) 0 %; HCT 35.6 % (34.0-46.0); HDW 2.51; HGB 10.8 gm/dL (11.4-16.0); Hypochromasia Moderate; Luc # (Auto) 0.17; Luc % (Auto) 2; Lymphocytes # (A) 1.9 k/uL (1.0-4.8); Lymphocytes % (A) 21 %; MCH 28.2 pg (25.0-35.0); MCHC 30.2 g/dL (31.0-37.0); MCV 93.1 fL (80.0-100.0); Mean Platelet Volume 7.1; Monocytes # (A) 0.4 k/uL (0-1.0); Monocytes % (A) 4 %; Neutrophils # (A) 6.5 k/uL (1.3-7.7); Neutrophils % (A) 73 %; RBC 3.83 m/uL (3.80-5.40); RDW 16.5 % (11.5-15.5); WBC 8.9 k/uL (3.8-10.6)
[2017-09-02 07:36] LABS: Calcium 8.3 mg/dL (8.4-10.2); Potassium 3.4 mmol/L (3.5-5.1)
[2017-09-02] MEDS: VIT A,C & E-LUTEIN-MINERALS 1 EACH TAB PO SCH ×2 (08:11→16:34)
[2017-09-02] MEDS: DORZOLAMIDE-TIMOLOL 2-0.5% DROPS 10 ML BTL LEFT EYE SCH ×2 (08:11→21:14)
[2017-09-02] MEDS: KETOROLAC 0.5% OPHTH DROPS 5 ML BTL RIGHT EYE SCH ×2 (08:12→21:12)
[2017-09-02] MEDS: LACTULOSE 20 GM/30 ML CUP PO SCH ×2 (08:12→21:17)
[2017-09-02] MEDS: FLUTICASONE 50MCG/SPRAY NASAL 16GM EA NOSTRIL SCH (08:12)
[2017-09-02] MEDS: FUROSEMIDE 80 MG TAB PO SCH ×2 (08:12→16:34)
[2017-09-02] MEDS: prednisoLONE ACETATE 1% OPHTH DROPS 5 ML BTL RIGHT EYE SCH ×2 (08:13→21:16)
[2017-09-02] MEDS: PANTOPRAZOLE 40 MG/10 ML VIAL IVP SCH ×2 (08:13→21:18)
[2017-09-02] MEDS: METOPROLOL TARTRATE 25 MG TAB PO SCH (08:13)
[2017-09-02] MEDS ORDERED: SIMETHICONE 80 MG CHEWABLE PO PRN (10:43)
[2017-09-02] MEDS ORDERED: Potassium Replacement Protocol 1 EACH MISC MISCELLANE PRN (11:00)
[2017-09-02] MEDS: CHOLECALCIFEROL 1,000 UNIT TAB PO SCH (12:03)
[2017-09-02] MEDS: CALCITRIOL 0.25 MCG CAP PO SCH (12:03)
[2017-09-02] MEDS: CYANOCOBALAMIN 500 MCG TAB PO SCH (12:03)
[2017-09-02] MEDS: POTASSIUM CHLORIDE ER 20 MEQ TAB.ER PO SCH ×2 (12:11→13:11)
[2017-09-02] MEDS: CALCIUM CARB-MAG CARB-FOLIC 1 EACH TAB PO SCH (12:11)
[2017-09-02] MEDS: cefTAZidime 1.25 GM in DIALYSIS (PERITONL) DEX 2.5% 2,000 ML INTRAPERIT SCH (12:13)
[2017-09-02] MEDS: MAGNESIUM OXIDE 400 MG TAB PO SCH (12:13)
[2017-09-02 12:18] LABS: INR 1.1 (<1.2); Prothrombin Time 11.4 sec (9.0-12.0)
[2017-09-02] MEDS: HYDROcodone/APAP 5-325MG 1 EACH TAB PO PRN (13:15)
--- NOTE | 2017-09-02 13:18 | P.GSCN ---
History of Present Illness History of present illness: 81 old white female, patient Has history of chronic renal failure s patient is on peritoneal dialysis the dialysis catheter has been infected with peritonitis patient IV antibiotic I was consulted for placement of a dialysis catheter Examination neck is supple no bruit appreciated Chest is clear auscultation first and second sound normal Abdomen tender all sounds are present patient has a peritoneal dialysis catheter Vascular examination brachial radial femoral pulses are present Plan is placement of the dialysis catheter risk and complication bleeding infection thrombosis has been discussed Past Medical History Past Medical History: Eye Disorder, Hyperlipidemia, Hypertension, Renal Disease , Thyroid Disorder Additional Past Medical History / Comment(s): KIDNEY DISEASE, ANEMIA, CHRONIC ALLERGIES[sinus drainage],GLAUCOMA. Home dialysis. Thyroid nodules. History of Any Multi-Drug Resistant Organisms: None Reported Past Surgical History: Joint Replacement, Tonsillectomy Additional Past Surgical History / Comment(s): JOSSELIN KNEE REPLACEMENT, RIGHT HIP REPLACEMENT, RT EYE SURGERY FOR GLAUCOMA. Past Anesthesia/Blood Transfusion Reactions: Motion Sickness Past Psychological History: No Psychological Hx Reported Smoking Status: Never smoker Past Alcohol Use History: None Reported Past Drug Use History: None Reported - Past Family History Father Family Medical History: Myocardial Infarction ([place]) Mother Family Medical History: CVA/TIA Daughter(s) Family Medical History: Hypertension Son(s) Family Medical History: Hypertension Medications and Allergies Home Medications Medication Instructions Recorded Confirmed Type Dorzolamide HCl/Timolol Maleat 1 drop LEFT EYE BID 05/10/14 08/29/17 History [Cosopt Eye Drops] Ketorolac 0.5% Ophth Soln [Acular 1 drops RIGHT EYE BID 05/10/14 08/29/17 History 0.5%] Latanoprost Ophth [Xalatan 0.005%] 1 drops LEFT EYE HS 05/10/14 08/29/17 History prednisoLONE ACETATE 1% OPHTH 1 drop RIGHT EYE BID 05/10/14 08/29/17 History [Pred Forte 1%] Cholecalciferol [Vitamin D3] 2,000 unit PO DAILY 06/10/16 08/29/17 History Fluticasone Nasal [place] [Flonase 1 spr EA NOSTRIL DAILY 06/10/16 08/29/17 History Nasal [place]] Potassium Chloride [K-Tab ER] 10 meq PO DAILY 06/10/16 08/29/17 History Vit C/E/Zn/Coppr/Lutein/Zeaxan 1 cap PO BID 06/10/16 08/29/17 History [Preservision Areds 2 Softgel] Aspirin 81 mg PO DAILY #0 chew 06/13/16 08/29/17 Rx Metoprolol Tartrate 25 mg PO DAILY 07/25/17 08/29/17 History Calcitriol 0.5 mcg PO MOFR 08/29/17 08/29/17 History Calcium Carb-Mag Carb-Folic 1 tab PO W/LUNCH 08/29/17 08/29/17 History [Magnebind 400] Magnesium Oxide [Mag-Ox] 400 mg PO DAILY 08/29/17 08/29/17 History Vitamin B12 Sl 500 mcg PO DAILY 08/29/17 08/29/17 History Allergies Allergy/AdvReac Type Severity Reaction Status Date / Time sevelamer carbonate Allergy Unknown Itching Verified 08/29/17 11:59 [From [facility], [place]] Surgical - Exam Vital Signs Temp Pulse Resp BP Pulse Ox 98.8 F 61 16 135/90 98 08/29/17 10:46 08/29/17 10:46 08/29/17 10:46 08/29/17 10:46 08/29/17 10:46 Results - Labs 09/02/17 06:50 09/02/17 06:50 Abnormal Lab Results - Last 24 Hours (Table) 09/02/17 09/02/17 Range/Units 06:50 06:50 Hgb 10.8 L (11.4-16.0) gm/dL MCHC 30.2 L (31.0-37.0) g/dL RDW 16.5 H (11.5-15.5) % Sodium 129 L (137-145) mmol/L Potassium 3.4 L (3.5-5.1) mmol/L Chloride 91 L (98-107) mmol/L BUN 28 H (7-17) mg/dL Creatinine 4.35 H (0.52-1.04) mg/dL Glucose 162 H (74-99) mg/dL Calcium 8.3 L (8.4-10.2) mg/dL Microbiology - Last 24 Hours (Table) 08/31/17 13:35 Urine Culture - Final Urine,Voided 08/29/17 18:21 Blood Culture - Preliminary Blood No Growth after 72 hours Diabetes panel 09/02/17 Range/Units 06:50 Sodium 129 L (137-145) mmol/L Potassium 3.4 L (3.5-5.1) mmol/L Chloride 91 L (98-107) mmol/L Carbon Dioxide 26 (22-30) mmol/L BUN 28 H (7-17) mg/dL Creatinine 4.35 H (0.52-1.04) mg/dL Glucose 162 H (74-99) mg/dL Calcium 8.3 L (8.4-10.2) mg/dL Calcium panel 09/02/17 Range/Units 06:50 Calcium 8.3 L (8.4-10.2) mg/dL Pituitary panel 09/02/17 Range/Units 06:50 Sodium 129 L (137-145) mmol/L Potassium 3.4 L (3.5-5.1) mmol/L Chloride 91 L (98-107) mmol/L Carbon Dioxide 26 (22-30) mmol/L BUN 28 H (7-17) mg/dL Creatinine 4.35 H (0.52-1.04) mg/dL Glucose 162 H (74-99) mg/dL Calcium 8.3 L (8.4-10.2) mg/dL Adrenal panel 09/02/17 Range/Units 06:50 Sodium 129 L (137-145) mmol/L Potassium 3.4 L (3.5-5.1) mmol/L Chloride 91 L (98-107) mmol/L Carbon Dioxide 26 (22-30) mmol/L BUN 28 H (7-17) mg/dL Creatinine 4.35 H (0.52-1.04) mg/dL Glucose 162 H (74-99) mg/dL Calcium 8.3 L (8.4-10.2) mg/dL
[2017-09-02 14:52] LABS: Calcium 8.6 mg/dL (8.4-10.2); Potassium 3.6 mmol/L (3.5-5.1)
--- NOTE | 2017-09-02 15:50 | PN ---
PROGRESS NOTE Patient is seen for followup for end-stage renal disease. She was admitted to the hospital with CAPD peritonitis. The patient has been on antibiotics. She continues to have abdominal pain and fluid remains cloudy. She is maintained on Fortaz intraperitoneal daily. She has also received vancomycin. The patient is maintained on lactulose for constipation. Overall, slowly she has been declining as outpatient. I have advised her that we will need to discontinue the PD catheter, give her abdomen rest and switch her to temporary hemodialysis. The patient is currently agreeable. EXAMINATION: Blood pressure is 157, 89, heart rate 98 per minute. She is afebrile. Examination of the heart S1, S2. Examination lungs decreased breath sounds bases. No crackles or wheezing is heard. Abdomen is soft, tenderness noted mainly in the upper abdomen. Examination of lower extremities shows no significant edema. LAB: Show sodium of 129, potassium 3.4, BUN 28, serum creatinine 4.35, hemoglobin 10.8 g/dL. ASSESSMENT: 1. End-stage renal disease, on peritoneal dialysis with a previous episode of peritonitis and currently with continued pain and cloudy bag. Her cell count has decreased to 520 from about 4000 initially. However, in view off the recurrent episode and overall general decline as outpatient, I will discontinue the PD catheter and maintain patient on temporary hemodialysis. We will give her belly rest for about 4 weeks and then try to resume PD as outpatient. 2. CAPD peritonitis. Maintained on intraperitoneal Fortaz. She has also received vancomycin. Previous organism was gram-negative. PLAN: DC PD catheter and switch to temporary hemodialysis. Consult Dr. Peacock for placement of PermCath with possible dialysis tomorrow. MMODL / IJN: [id number] /
[2017-09-02] MEDS ORDERED: SODIUM CHLORIDE 0.9% 1,000 ML IV ONE (18:00)
--- NOTE | 2017-09-02 18:04 | P.GSCN ---
History of Present Illness Consult date: 09/02/17 Reason for Consult: Peritonitis History of present illness: Patient is known to our service. We placed a peritoneal dialysis catheter proximally 3 years ago. It had been functioning well up until the spring. She' s had more fatigue and occasional episodes of abdominal discomfort since that time. Approximately one month ago she fell and noticed her catheter fluid became cloudy in nature. She was treated with outpatient antibiotics through the catheter. A few days prior to admission she noted the cloudiness returned and was associated with more generalized discomfort. A CAT scan showed no definite etiology. She does have a known reducible umbilical hernia. This is no different than it previously was. She is having a hemodialysis catheter placed this evening. We are asked to see this patient for catheter removal. Cultures are currently negative. Review of Systems The patient denies any acute changes in vision or hearing, no dysphagia or odynophagia, no chest pain or shortness of breath, no dysuria or hematuria, no headache, no runny nose, no rectal bleeding or melena Past Medical History Past Medical History: Eye Disorder, Hyperlipidemia, Hypertension, Renal Disease , Thyroid Disorder Additional Past Medical History / Comment(s): KIDNEY DISEASE, ANEMIA, CHRONIC ALLERGIES[sinus drainage],GLAUCOMA. Home dialysis. Thyroid nodules. History of Any Multi-Drug Resistant Organisms: None Reported Past Surgical History: Joint Replacement, Tonsillectomy Additional Past Surgical History / Comment(s): JOSSELIN KNEE REPLACEMENT, RIGHT HIP REPLACEMENT, RT EYE SURGERY FOR GLAUCOMA. Past Anesthesia/Blood Transfusion Reactions: Motion Sickness Past Psychological History: No Psychological Hx Reported Smoking Status: Never smoker Past Alcohol Use History: None Reported Past Drug Use History: None Reported - Past Family History Father Family Medical History: Myocardial Infarction ([place]) Mother Family Medical History: CVA/TIA Daughter(s) Family Medical History: Hypertension Son(s) Family Medical History: Hypertension Medications and Allergies Home Medications Medication Instructions Recorded Confirmed Type Dorzolamide HCl/Timolol Maleat 1 drop LEFT EYE BID 05/10/14 08/29/17 History [Cosopt Eye Drops] Ketorolac 0.5% Ophth Soln [Acular 1 drops RIGHT EYE BID 05/10/14 08/29/17 History 0.5%] Latanoprost Ophth [Xalatan 0.005%] 1 drops LEFT EYE HS 05/10/14 08/29/17 History prednisoLONE ACETATE 1% OPHTH 1 drop RIGHT EYE BID 05/10/14 08/29/17 History [Pred Forte 1%] Cholecalciferol [Vitamin D3] 2,000 unit PO DAILY 06/10/16 08/29/17 History Fluticasone Nasal [place] [Flonase 1 spr EA NOSTRIL DAILY 06/10/16 08/29/17 History Nasal [place]] Potassium Chloride [K-Tab ER] 10 meq PO DAILY 06/10/16 08/29/17 History Vit C/E/Zn/Coppr/Lutein/Zeaxan 1 cap PO BID 06/10/16 08/29/17 History [Preservision Areds 2 Softgel] Aspirin 81 mg PO DAILY #0 chew 06/13/16 08/29/17 Rx Metoprolol Tartrate 25 mg PO DAILY 07/25/17 08/29/17 History Calcitriol 0.5 mcg PO MOFR 08/29/17 08/29/17 History Calcium Carb-Mag Carb-Folic 1 tab PO W/LUNCH 08/29/17 08/29/17 History [Magnebind 400] Magnesium Oxide [Mag-Ox] 400 mg PO DAILY 08/29/17 08/29/17 History Vitamin B12 Sl 500 mcg PO DAILY 08/29/17 08/29/17 History Allergies Allergy/AdvReac Type Severity Reaction Status Date / Time sevelamer carbonate Allergy Unknown Itching Verified 08/29/17 11:59 [From [facility]] Surgical - Exam Vital Signs Temp Pulse Resp BP Pulse Ox 98.8 F 61 16 135/90 98 08/29/17 10:46 08/29/17 10:46 08/29/17 10:46 08/29/17 10:46 08/29/17 10:46 Physical exam: General: Well-developed, well-nourished HEENT: Normocephalic, sclerae nonicteric Abdomen: Mild diffuse tenderness, mildly distended, catheter in the right midabdomen, reducible umbilical hernia mainly tender Extremities: Lower extremity edema Neuro: Alert and oriented Results - Labs 09/02/17 06:50 09/02/17 13:38 Abnormal Lab Results - Last 24 Hours (Table) 09/02/17 09/02/17 09/02/17 Range/Units 06:50 06:50 13:38 Hgb 10.8 L (11.4-16.0) gm/dL MCHC 30.2 L (31.0-37.0) g/dL RDW 16.5 H (11.5-15.5) % Sodium 129 L 131 L (137-145) mmol/L Potassium 3.4 L (3.5-5.1) mmol/L Chloride 91 L 91 L (98-107) mmol/L BUN 28 H 30 H (7-17) mg/dL Creatinine 4.35 H 4.60 H (0.52-1.04) mg/dL Glucose 162 H 105 H (74-99) mg/dL Calcium 8.3 L (8.4-10.2) mg/dL Microbiology - Last 24 Hours (Table) 08/31/17 02:10 Gram Stain - Preliminary Peritoneal Fluid Body Fluid Culture - Preliminary 08/31/17 13:35 Urine Culture - Final Urine,Voided 08/29/17 18:21 Blood Culture - Preliminary Blood No Growth after 72 hours Diabetes panel 09/02/17 09/02/17 Range/Units 06:50 13:38 Sodium 129 L 131 L (137-145) mmol/L Potassium 3.4 L 3.6 (3.5-5.1) mmol/L Chloride 91 L 91 L (98-107) mmol/L Carbon Dioxide 26 27 (22-30) mmol/L BUN 28 H 30 H (7-17) mg/dL Creatinine 4.35 H 4.60 H (0.52-1.04) mg/dL Glucose 162 H 105 H (74-99) mg/dL Calcium 8.3 L 8.6 (8.4-10.2) mg/dL Calcium panel 09/02/17 09/02/17 Range/Units 06:50 13:38 Calcium 8.3 L 8.6 (8.4-10.2) mg/dL Pituitary panel 09/02/17 09/02/17 Range/Units 06:50 13:38 Sodium 129 L 131 L (137-145) mmol/L Potassium 3.4 L 3.6 (3.5-5.1) mmol/L Chloride 91 L 91 L (98-107) mmol/L Carbon Dioxide 26 27 (22-30) mmol/L BUN 28 H 30 H (7-17) mg/dL Creatinine 4.35 H 4.60 H (0.52-1.04) mg/dL Glucose 162 H 105 H (74-99) mg/dL Calcium 8.3 L 8.6 (8.4-10.2) mg/dL Adrenal panel 09/02/17 09/02/17 Range/Units 06:50 13:38 Sodium 129 L 131 L (137-145) mmol/L Potassium 3.4 L 3.6 (3.5-5.1) mmol/L Chloride 91 L 91 L (98-107) mmol/L Carbon Dioxide 26 27 (22-30) mmol/L BUN 28 H 30 H (7-17) mg/dL Creatinine 4.35 H 4.60 H (0.52-1.04) mg/dL Glucose 162 H 105 H (74-99) mg/dL Calcium 8.3 L 8.6 (8.4-10.2) mg/dL Assessment and Plan (1) Peritonitis associated with peritoneal dialysis Narrative/Plan: Options discussed with the patient and her daughter at the bedside. We'll proceed with catheter removal tomorrow. Risks of bleeding, infection, persistent peritonitis, potential additional surgical intervention, hernia, abscess, and anesthesia-related complications were discussed. They understand and wish for us to proceed. Status: Acute
[2017-09-02] MEDS ORDERED: MIDAZOLAM 2 MG/2 ML VIAL ONE (18:36)
[2017-09-02] MEDS ORDERED: MIDAZOLAM 2 MG/2 ML VIAL IV ONE (18:37)
[2017-09-02] MEDS ORDERED: LIDOCAINE 2% INJ 20 MG/ML SQ ONE (18:38)
[2017-09-02 19:50] LABS: Iron Saturation 13.68 (12.00-45.00)
--- NOTE | 2017-09-02 19:56 | XR ---
EXAMINATION TYPE: XR chest 1V portable DATE OF EXAM: 09/02/2017 COMPARISON: 08/29/1970 HISTORY: Dyspnea TECHNIQUE: Single frontal view, AP upright portable, of the chest is obtained. FINDINGS: Right IJ catheter tip superimposed over the distal SVC. There is no focal air space opacity , pleural effusion, or pneumothorax seen. The cardiac silhouette size is within normal limits. The osseous structures are intact. IMPRESSION: No acute process.
--- NOTE | 2017-09-02 21:02 | PN ---
PROGRESS NOTE DATE OF SERVICE: 09/01/2017 This 81-year-old woman who was admitted with nausea and vomiting had features of sepsis; also had headache; cloudy peritoneal dialysis that returned. No chest pain. No palpitations. No fever. PHYSICAL EXAMINATION: Alert, oriented x3. Pulse is 99, blood pressure 185/83, respiration 17, temperature 98.0, pulse ox 93% on room air. HEENT: Conjunctivae normal. NECK: No jugular venous distention. CARDIOVASCULAR SYSTEM: S1, S2 muffled. RESPIRATORY SYSTEM: Breath sounds diminished at the bases. A few scattered rhonchi. ABDOMEN: Soft. Ascites present. LEGS: No edema. No swelling. NERVOUS SYSTEM: No focal deficit. LABS: Sodium 131. Creatinine is 4.60. ASSESSMENT: 1. Nausea, vomiting, diarrhea; possible acute gastroenteritis and sepsis. 2. Possible peritonitis and sepsis secondary to CAPD catheter. 3. History of chronic renal failure and CAPD. 4. History of recent bacterial peritonitis. RECOMMENDATIONS AND DISCUSSION: I recommend to continue current medication. Repeat cell count on the fluid and surgical consultation. Closely follow with nephrology. Guarded prognosis.; Further recommendations to follow. Infectious disease evaluation. MMODL / IJN: [id number] /
--- NOTE | 2017-09-02 21:08 | PN ---
PROGRESS NOTE DATE OF SERVICE: 09/02/2017 This 81-year-old woman is admitted with features of peritonitis and sepsis, status post CAPD and chronic renal failure, is being closely monitored. No chest pain. No palpitations. No fever. The patient is on not feeling well today. EXAM: Alert, oriented x3. The pulse is 91, blood pressure 130/58, respiration 20, temperature 98.2, pulse ox 94% room air. HEENT: Conjunctivae normal. Neck no jugular venous distention. Cardiovascular: S1, S2 muffled. Respiratory: Breath sounds diminished at the bases. A few scattered rhonchi and crackles. ABDOMEN: Soft, nontender. Ascites present. Legs: No edema. No swelling. Central nervous system: No focal deficits. LABS: Sodium 131, potassium 3.6, creatinine is 4.60. ASSESSMENT: 1. Nausea and vomiting, diarrhea, possible acute gastroenteritis and sepsis. 2. Acute peritonitis and sepsis secondary to CAPD catheter. 3. History of chronic respiratory failure, chronic obstructive pulmonary disease. 4. History of recent bacterial peritonitis. 5. History of hyponatremia. 6. Hypokalemia. 7. Hypertension essential. RECOMMENDATIONS AND DISCUSSION: Recommend to continue current medications and symptomatic treatment. Otherwise at this time, continue with broad-spectrum IV antibiotics. The cultures are negative so far. Prognosis guarded. Dr. Garcia evaluated the patient and also insertion of hemodialysis catheter by Dr. Peacock. Prognosis guarded. Further recommendations to follow. MMODL / IJN: [id number] /
[2017-09-02] MEDS: LATANOPROST 0.005% OPHTH DROPS 2.5 ML BTL LEFT EYE SCH (21:15)
[2017-09-03] MEDS: METOCLOPRAMIDE 5 MG/ML 2 ML VIAL IVP SCH ×4 (01:10→18:51)
[2017-09-03] MEDS: DIALYSIS (PERITONL) DEX 2.5% 2,000 ML INTRAPERIT SCH ×2 (01:10→07:41)
--- NOTE | 2017-09-03 06:39 | PN ---
PROGRESS NOTE DATE OF SERVICE: 09/02/2017 REASON FOR FOLLOWUP: PD catheter associated peritonitis. INTERVAL HISTORY: The patient is afebrile. Her pain seems to have slightly improved. No nausea, no vomiting, or any diarrhea. Denies any chest pain, shortness of breath or cough. PHYSICAL EXAMINATION: On examination, blood pressure 134/58 with a pulse of 91, temperature of 98.3. She is 94% on room air. General description is an elderly female up in the chair in no distress. RESPIRATORY SYSTEM: Unlabored breathing. Clear to auscultation anteriorly. HEART: S1, S2. Regular rate and rhythm. ABDOMEN: Soft, no tenderness. LABS: BUN of 30, creatinine 4.60. Repeat peritoneal fluid cell count down to 520. Culture showing an anaerobic gram-positive cocci. DIAGNOSTIC IMPRESSION AND PLAN: Patient with PD catheter associated peritonitis with recent outpatient culture gram- negative. Nephrology has recommended discontinuation of the PD catheter and insertion of a hemodialysis catheter. She will be switched to Fortaz through the IV and continue on vancomycin pharmacy to dose to finish treatment for the current peritonitis. Continue supportive care. MMODL / IJN: [id number] /
[2017-09-03 07:47] LABS: Anisocytosis Slight; Basophils % (A) 0 %; CH 28.2; CHCM 30.6; Eosinophils % (A) 0 %; HCT 32.8 % (34.0-46.0); HDW 2.53; HGB 10.1 gm/dL (11.4-16.0); Hypochromasia Moderate; Luc # (Auto) 0.22; Luc % (Auto) 2; Lymphocytes # (A) 1.8 k/uL (1.0-4.8); Lymphocytes % (A) 16 %; MCH 28.4 pg (25.0-35.0); MCHC 30.8 g/dL (31.0-37.0); MCV 92.4 fL (80.0-100.0); Mean Platelet Volume 7.2; Monocytes # (A) 0.6 k/uL (0-1.0); Monocytes % (A) 5 %; Neutrophils # (A) 8.2 k/uL (1.3-7.7); Neutrophils % (A) 76 %; RBC 3.55 m/uL (3.80-5.40); RDW 16.6 % (11.5-15.5); WBC 10.8 k/uL (3.8-10.6); WBC (Perox) 11.46
[2017-09-03] MEDS: VIT A,C & E-LUTEIN-MINERALS 1 EACH TAB PO SCH ×2 (07:50→18:44)
[2017-09-03] MEDS: FUROSEMIDE 80 MG TAB PO SCH ×2 (07:50→17:16)
[2017-09-03] MEDS: FLUTICASONE 50MCG/SPRAY NASAL 16GM EA NOSTRIL SCH (07:50)
[2017-09-03] MEDS: prednisoLONE ACETATE 1% OPHTH DROPS 5 ML BTL RIGHT EYE SCH ×2 (07:50→20:36)
[2017-09-03] MEDS: METOPROLOL TARTRATE 25 MG TAB PO SCH (07:50)
[2017-09-03] MEDS: DORZOLAMIDE-TIMOLOL 2-0.5% DROPS 10 ML BTL LEFT EYE SCH ×2 (07:51→20:33)
[2017-09-03] MEDS: KETOROLAC 0.5% OPHTH DROPS 5 ML BTL RIGHT EYE SCH ×2 (07:51→20:34)
[2017-09-03] MEDS: PANTOPRAZOLE 40 MG/10 ML VIAL IVP SCH ×2 (07:52→22:14)
[2017-09-03] MEDS: LACTULOSE 20 GM/30 ML CUP PO SCH ×2 (07:58→20:34)
[2017-09-03 08:01] LABS: Calcium 7.8 mg/dL (8.4-10.2); Potassium 4.2 mmol/L (3.5-5.1)
--- NOTE | 2017-09-03 08:24 | PCN ---
PROCEDURE NOTE PREOPERATIVE DIAGNOSIS: Acute on chronic renal failure with peritonitis and infected peritoneal dialysis catheter. PROCEDURE: Ultrasound-guided [address] right jugular approach. The patient was seen in the ear mold laboratory technician. Right side of the neck and chest was prepped and draped in the usual sterile manner. 1% lidocaine was infiltrated. Ultrasound-guided micropuncture into fat and jugular vein. Micropuncture guide was passed and 4-Estonian dilator on top of the guidewire. Then we created tunnel, through the tunnel we brought a 24 cm dialysis catheter. Sheath was advanced on top of the guidewire. The guidewire was parked in the inferior vena cava and through the sheath we introduced the catheter. Tip of the catheter in superior vena cava and flushed with heparin saline and hep- locked, secured with Vicryl and nylon. Patient tolerated the procedure well. MMODL / IJN: [id number] /
--- NOTE | 2017-09-03 10:41 | IR ---
Fluoroscopy HISTORY: Dialysis catheter placement 0.4 minutes fluoroscopy time supplied to the referring clinician. 117 intraoperative C-arm images do cument the procedure. See dictated report from vascular surgery.
[2017-09-03] MEDS ORDERED: SODIUM CHLORIDE 0.9% 1,000 ML IV ONE ×2 (12:20)
[2017-09-03] MEDS ORDERED: HEPARIN SODIUM,PORCINE 5,000 UNIT/ML 1 ML VIAL SQ ONE (12:29)
[2017-09-03] MEDS ORDERED: diphenhydrAMINE 50 MG/ML 1 ML VIAL ONE (12:53)
[2017-09-03] MEDS ORDERED: PROPOFOL 10 MG/ML 20 ML VIAL IV ONE (12:53)
[2017-09-03] MEDS ORDERED: KETAMINE 10 MG/ML 20 ML VIAL ONE (12:53)
[2017-09-03] MEDS ORDERED: MIDAZOLAM 2 MG/2 ML VIAL ONE (12:53)
[2017-09-03] MEDS ORDERED: BUPIVACAINE (PF) 0.25% 30 ML VIAL SQ ONE ×2 (13:11)
[2017-09-03] MEDS: cefTAZidime 1.25 GM in DIALYSIS (PERITONL) DEX 2.5% 2,000 ML INTRAPERIT SCH (13:25)
[2017-09-03] MEDS: CHOLECALCIFEROL 1,000 UNIT TAB PO SCH (13:25)
[2017-09-03] MEDS: CYANOCOBALAMIN 500 MCG TAB PO SCH (13:25)
[2017-09-03] MEDS: MAGNESIUM OXIDE 400 MG TAB PO SCH (13:26)
[2017-09-03] MEDS: CALCIUM CARB-MAG CARB-FOLIC 1 EACH TAB PO SCH (13:27)
--- NOTE | 2017-09-03 13:28 | P.PCN ---
Date of Procedure: 09/03/17 Procedure(s) Performed: PREOPERATIVE DIAGNOSIS: Renal failure/peritonitis POSTOPERATIVE DIAGNOSIS: Same PROCEDURE: PD cath removal SURGEON: Jose EBL: 2 mL ANESTHESIA: Sedation and local COMPLICATIONS: None OPERATIVE PROCEDURE: Patient was placed in the supine position. The abdomen was prepped and draped in usual sterile fashion. The previous paramedian incision was re-incised after localizing the skin. The subcutaneous tissues were divided using electrocautery. Blunt dissection around the cuff that was present at the fascia and peritoneum took place. The cuff was fully mobilized. The catheter was removed from the perineal cavity. The outer cuff was dissected from the saphenous fascia using electrocautery. The catheter was cut on the other side of that cuff and the catheter was removed. The fascial defect was closed using a single [id number] 0 Vicryl stitch. The subcutaneous tissues were closed using 3-0 Vicryl sutures and the skin using 4- 0 Monocryl sutures. Steri-Strips and sterile dressings were applied. DISPOSITION: Stable to recovery room
[2017-09-03] MEDS: HYDROcodone/APAP 5-325MG 1 EACH TAB PO PRN (14:52)
[2017-09-03] MEDS ORDERED: METOPROLOL TARTRATE 25 MG TAB PO STA (15:48)
[2017-09-03 16:48] LABS: Anisocytosis Slight; Basophils % (A) 0 %; CH 27.8; CHCM 29.8; Eosinophils % (A) 0 %; HDW 2.46; HGB 10.5 gm/dL (11.4-16.0); Hypochromasia Marked; Luc # (Auto) 0.17; Luc % (Auto) 2; Lymphocytes # (A) 1.2 k/uL (1.0-4.8); Lymphocytes % (A) 11 %; MCH 28.9 pg (25.0-35.0); MCHC 30.9 g/dL (31.0-37.0); MCV 93.5 fL (80.0-100.0); Mean Platelet Volume 7.4; Monocytes # (A) 0.7 k/uL (0-1.0); Monocytes % (A) 7 %; Neutrophils # (A) 8.4 k/uL (1.3-7.7); Neutrophils % (A) 80 %; RBC 3.63 m/uL (3.80-5.40); RDW 16.6 % (11.5-15.5); WBC 10.5 k/uL (3.8-10.6); WBC (Perox) 10.96
[2017-09-03] MEDS: metroNIDAZOLE 500 MG TAB PO SCH ×2 (17:17→22:14)
--- NOTE | 2017-09-03 18:21 | PN ---
PROGRESS NOTE DATE OF SERVICE: 09/03/2017 INTERVAL HISTORY: This 81-year-old woman who was admitted nausea and diarrhea and possible sepsis being closely monitored at this time. The peritoneal dialysis catheter has been planned to be removed. New hemodialysis catheter on the right side is inserted. No chest pain. No palpitations. No fever. Cultures showing anaerobic gram positive cocci at this time. PHYSICAL EXAMINATION: On exam, alert, oriented, times three, pulse 72, blood pressure 150/70, respiratory rate 20, temperature 98 degrees, pulse ox 100% on 2 L. HEENT is conjunctivae normal. Neck is no jugular venous distention. Cardiovascular: S1, S2 muffled. Respiratory: Breath sounds diminished in the bases. A few scattered rhonchi and crackles. Abdomen is soft, nontender. No mass palpable. Legs no edema no swelling. Central nervous system: No focal deficits. LABS: WBC 10.8, hemoglobin 10.9, sodium 128, potassium 4.2. Creatinine is 5.56. ASSESSMENT: 1. Nausea, vomiting and diarrhea, possible acute gastroenteritis and sepsis. 2. Acute peritonitis and sepsis secondary to CAPD catheter. 3. History of chronic respiratory failure. Chronic obstructive pulmonary disease. 4. History of recent bacterial peritonitis. 5. History hyponatremia. 6. Hypokalemia. 7. Hypertension. RECOMMENDATIONS AND DISCUSSION: Recommend to continue current medications. Continue to monitor. Symptomatic treatment. Closely monitor. Guarded prognosis. Continue antibiotics. Otherwise Fortaz. Hemodialysis. Guarded prognosis. Further recommendations to follow. MMODL / IJN: [id number] /
--- NOTE | 2017-09-03 19:36 | PN ---
PROGRESS NOTE DATE OF SERVICE: 09/03/2017 This 81-year-old woman was admitted. The patient had hemodialysis initiated. The patient had PVCs and the patient is being closely monitored at this time. Stat beta-cortney and as well as some magnesium is injected at this time. PAST MEDICAL HISTORY: Reviewed. REVIEW OF SYSTEMS: CARDIOVASCULAR: As mentioned. RESPIRATIONS: As mentioned. GI: No nausea. : No dysuria. NEURO: No numbness or weakness. CURRENT MEDICATIONS: 1. Tylenol 500 q.4h p.r.n. 2. [place] 5 mg. 3. Rocaltrol. 4. Ceftazidime 1 g. 5. Vitamin D2. 6. Vitamin B12. 7. Iron. 9. Lasix. 11.Dilaudid. 13.Reglan. 14.Lopressor 25 mg. 15.Flagyl 500 mg t.i.d. 16.Zofran. 17.Narcan. 18.Protonix. 19.Miconazole. RECOMMENDATIONS AND DISCUSSION: In this 81-year-old woman who presented with multiple complex medical issues, we will monitor the patient closely, continue the current medication, continue the symptomatic treatment. Otherwise at this time I recommend to continue with telemetry, 2D echo with Doppler, check troponins, check magnesium, beta blockers, cardiology consultation. Guarded prognosis. Further recommendations to follow. See the previous dictation for further orders and details. MMODL / IJN: [id number] / MTDD
--- NOTE | 2017-09-03 20:21 | PN ---
PROGRESS NOTE The patient was seen this morning for followup for end-stage renal disease. She is status post PermCath placement and it was decided to switch her to temporary hemodialysis and to remove the PD catheter. This morning patient states she is feeling better. Abdominal pain seems to have improved. However, in view of her previous gram- negative peritonitis about 3 weeks ago and then recurrent peritonitis, it is decided to remove her PD catheter. She is currently waiting for OR time for removal of the PD catheter and patient is scheduled for hemodialysis today. EXAMINATION: Blood pressure is 138/86, heart rate 80 per minute. She is afebrile. Examination of the heart S1, S2. Examination lungs bilateral breath sounds are heard. Abdomen is soft, nontender. Examination of lower extremities shows trace edema bilaterally. LABS: Sodium 128, potassium 4.2, BUN 38, serum creatinine 5.56, hemoglobin 10.5 g/dL. ASSESSMENT: 1. End-stage renal disease on peritoneal dialysis. Patient will be switched over to hemodialysis. She will have her first treatment today and then again in a.m. 2. Continuous ambulatory peritoneal dialysis peritonitis with current fluid culture growing anaerobic gram-positive cocci. ID is on consult. Will continue with the IV antibiotics until the patient is discharged. 3. Anemia with significant iron deficiency. Will start IV iron. PLAN: Hemodialysis today as well as in a.m., start IV iron and the patient will need outpatient placement at the [facility] for hemodialysis. PAULINE / LEIGHTON: [id number] /
[2017-09-03] MEDS: SODIUM FERRIC GLUCONAT-SUCROSE 125 MG in SODIUM CHLORIDE 0.9% 100 ML IVPB SCH (20:27)
[2017-09-03] MEDS: LATANOPROST 0.005% OPHTH DROPS 2.5 ML BTL LEFT EYE SCH (20:35)
[2017-09-03 21:36] LABS: Anisocytosis Slight; Basophils % (A) 0 %; CH 28.1; CHCM 30.5; Eosinophils % (A) 0 %; HCT 31.1 % (34.0-46.0); HDW 2.47; HGB 9.6 gm/dL (11.4-16.0); Hypochromasia Moderate; Luc # (Auto) 0.15; Luc % (Auto) 1; Lymphocytes # (A) 1.3 k/uL (1.0-4.8); Lymphocytes % (A) 11 %; MCH 28.4 pg (25.0-35.0); MCHC 30.8 g/dL (31.0-37.0); MCV 92.2 fL (80.0-100.0); Mean Platelet Volume 7.3; Monocytes # (A) 0.4 k/uL (0-1.0); Monocytes % (A) 4 %; Neutrophils # (A) 9.4 k/uL (1.3-7.7); Neutrophils % (A) 83 %; RBC 3.38 m/uL (3.80-5.40); RDW 16.6 % (11.5-15.5); WBC 11.3 k/uL (3.8-10.6); WBC (Perox) 11.04
--- NOTE | 2017-09-03 22:39 | PN ---
PROGRESS NOTE DATE OF SERVICE: 09/03/2017 REASON FOR FOLLOWUP: PD catheter-associated peritonitis. INTERVAL HISTORY: The patient is afebrile. Her abdominal pain has slightly improved. She did get a hemodialysis catheter placement scheduled for the removal of the PD catheter today. No nausea, vomiting or any diarrhea. PHYSICAL EXAMINATION: Blood pressure 144/63 with a pulse of 70, temperature 97.5. She is 97% on room air. GENERAL DESCRIPTION: An elderly female lying in bed in no distress. RESPIRATORY SYSTEM: Unlabored breathing. Clear to auscultation anteriorly. HEART: S1, S2. Regular rate and rhythm. ABDOMEN: Soft. No tenderness. LABS: Hemoglobin is 10.5, white count of 10.5. The peritoneal culture with anaerobic gram- positive cocci. DIAGNOSTIC IMPRESSION AND PLAN: Patient with peritoneal dialysis catheter-associated peritonitis. Outpatient culture has been an Escherichia coli . Peritoneal dialysis port has been discontinued and switched to hemodialysis. Will try to obtain the culture report from the outpatient cultures to determine discharge antibiotic. MMODL / IJN: [id number] / JOHN
[2017-09-04] MEDS: METOCLOPRAMIDE 5 MG/ML 2 ML VIAL IVP SCH ×5 (00:50→23:45)
--- NOTE | 2017-09-04 07:25 | ECHOF ---
Referral Reason:multipy PVC MEASUREMENTS -------- HEIGHT: 157.5 cm WEIGHT: 75.8 kg BP: 155/67 RVIDd: 2.6 cm (< 3.3) IVSd: 1.6 cm (0.6 - 1.1) LVIDd: 4.3 cm (3.9 - 5.3) LVPWd: 1.6 cm (0.6 - 1.1) IVSs: 1.8 cm LVIDs: 2.7 cm LVPWs: 2.3 cm LAESV Index (A-L): 27.78 ml/m Ao Diam: 2.6 cm (2.0 - 3.7) AV Cusp: 1.8 cm (1.5 - 2.6) LA Diam: 2.9 cm (2.7 - 3.8) MV EXCURSION: 13.015 mm (> 18.000) MV EF SLOPE: 34 mm/s (70 - 150) EPSS: 0.5 cm MV E Boom: 1.19 m/s MV DecT: 349 ms MV A Boom: 1.62 m/s MV E/A Ratio: 0.74 RAP: 5.00 mmHg RVSP: 30.26 mmHg FINDINGS -------- Sinus rhythm with extra systolic beats. This was a technically adequate study. The left ventricular size is normal. There is moderate concentric left ventricular hypertrophy. Overall left ventricular systolic function is normal with, an EF between 60 - 65 %. The right ventricle is normal in size and function. Normal LA size by volume 22+/-6 ml/m2. The right atrium is normal in size. Aortic valve is trileaflet and is mildly thickened. There is no evidence of aortic regurgitation. There is no evidence of aortic stenosis. The mitral valve leaflets are moderately thickened. There is trace to mild mitral regurgitation. Mild mitral stenosis. Trace tricuspid regurgitation present. Right ventricular systolic pressure is normal at < 35 mmHg. There is no evidence of pulmonary hypertension. The pulmonic valve was not well visualized. The aortic root size is normal. Normal inferior vena cava with normal inspiratory collapse consistent with estimated right atrial pressure of 5 mmHg. The pericardium is normal. There is no pericardial effusion. CONCLUSIONS -------- 1. Sinus rhythm with extra systolic beats. 2. Mild mitral stenosis. 3. Trace tricuspid regurgitation present. 4. Right ventricular systolic pressure is normal at < 35 mmHg. 5. There is no evidence of pulmonary hypertension. 6. The pulmonic valve was not well visualized. 7. The aortic root size is normal. 8. There is no pericardial effusion. 9. This was a technically adequate study. 10. The left ventricular size is normal. 11. There is moderate concentric left ventricular hypertrophy. 12. Overall left ventricular systolic function is normal with, an EF between 60 - 65 %. 13. Normal LA size by volume 22+/-6 ml/m2. 14. Aortic valve is trileaflet and is mildly thickened. 15. The mitral valve leaflets are moderately thickened. 16. There is trace to mild mitral regurgitation. DRY CLEANER APPRENTICE: Leonidas Stanton RDCS
[2017-09-04] MEDS: VIT A,C & E-LUTEIN-MINERALS 1 EACH TAB PO SCH ×2 (09:06→17:27)
[2017-09-04] MEDS: FUROSEMIDE 80 MG TAB PO SCH ×2 (09:06→15:10)
[2017-09-04] MEDS: LACTULOSE 20 GM/30 ML CUP PO SCH ×3 (09:07→21:22)
[2017-09-04] MEDS: METOPROLOL TARTRATE 25 MG TAB PO SCH (09:08)
[2017-09-04] MEDS: metroNIDAZOLE 500 MG TAB PO SCH ×3 (09:09→21:19)
[2017-09-04] MEDS: prednisoLONE ACETATE 1% OPHTH DROPS 5 ML BTL RIGHT EYE SCH ×2 (09:10→21:19)
[2017-09-04] MEDS: KETOROLAC 0.5% OPHTH DROPS 5 ML BTL RIGHT EYE SCH ×2 (09:10→21:18)
[2017-09-04] MEDS: DORZOLAMIDE-TIMOLOL 2-0.5% DROPS 10 ML BTL LEFT EYE SCH ×2 (09:11→21:18)
[2017-09-04] MEDS: FLUTICASONE 50MCG/SPRAY NASAL 16GM EA NOSTRIL SCH (09:12)
[2017-09-04] MEDS: PANTOPRAZOLE 40 MG/10 ML VIAL IVP SCH ×2 (09:12→21:19)
--- NOTE | 2017-09-04 10:49 | P.PN ---
Subjective Progress Note Date: 09/04/17 Principal diagnosis: renal failure patient doing well today after catheter removal yesterday. Pain is improving. She is afebrile. She is tolerating hemodialysis currently. Objective - Vital Signs Vital signs: Vital Signs Temp 97.5 F L 09/04/17 07:00 Pulse 78 09/04/17 07:25 Resp 18 09/04/17 07:25 BP 147/66 09/04/17 07:00 Pulse Ox 94 L 09/04/17 07:00 Intake & Output 09/03/17 09/04/17 09/04/17 18:59 06:59 18:59 Intake Total 210 400 Output Total 5 Balance 205 400 Weight 75.8 kg 75.8 kg Intake: IV 150 Intake, IV Titration 200 Amount Sodium Ferric Gluconat- 200 Sucrose 125 mg In Sodium Chloride 0.9% 100 ml @ 100 mls/hr IVPB DAILY@ 1200 [facility] Rx#:[id number] Oral 60 200 Output: Estimated Blood Loss 5 Other: Voiding Method CAPD Bedside Commode # Voids 0 1 # Bowel Movements 1 - Exam abdomen: Soft, nondistended, incision clean and dry, mild tenderness but improved - Labs CBC & Chem 7: 09/03/17 21:17 09/03/17 07:10 Labs: Abnormal Lab Results - Last 24 Hours (Table) 09/03/17 09/03/17 09/03/17 Range/Units 15:48 16:26 21:17 WBC (3.8-10.6) k/uL RBC 3.63 L (3.80-5.40) m/uL Hgb 10.5 L (11.4-16.0) gm/dL Hct (34.0-46.0) % MCHC 30.9 L (31.0-37.0) g/dL RDW 16.6 H (11.5-15.5) % Neutrophils # 8.4 H (1.3-7.7) k/uL Troponin I 0.053 H* 0.051 H* (0.000-0.034) ng/mL 09/03/17 09/04/17 Range/Units 21:17 03:44 WBC 11.3 H (3.8-10.6) k/uL RBC 3.38 L (3.80-5.40) m/uL Hgb 9.6 L (11.4-16.0) gm/dL Hct 31.1 L (34.0-46.0) % MCHC 30.8 L (31.0-37.0) g/dL RDW 16.6 H (11.5-15.5) % Neutrophils # 9.4 H (1.3-7.7) k/uL Troponin I 0.055 H* (0.000-0.034) ng/mL Microbiology - Last 24 Hours (Table) 08/29/17 17:00 Gram Stain - Final Peritoneal Fluid Body Fluid Culture - Final Anaerobic Gram Positive Cocci 08/29/17 18:21 Blood Culture - Preliminary Blood No Growth after 120 hours Assessment and Plan (1) Peritonitis associated with peritoneal dialysis Narrative/Plan: continue increasing activity. Continue antibiotics. Status: Acute
--- NOTE | 2017-09-04 12:25 | P.CRDCN ---
History of Present Illness Consult date: 09/04/17 History of present illness: This is a 81-year-old female. Past medical history significant for hypertension, hyperlipidemia, renal disease previously on peritoneal dialysis just started on hemodialysis. She states she has a permacath in place and HD was attempted yesterday for the first time around 1400. Apparently she states her catheter was clotted and they were going to attempt again today. We have been asked to see the patient in consultation because of an 18 beat run of ventricular tachycardia yesterday during dialysis. During this episode she denies chest pain, shortness of breath, palpitations, dizziness or any symptoms at all. She said she didn't even realize anything had occurred. Troponins 0.053 , 0.051 and 0.055. Not consistent with an acute coronary event, secondary to renal failure. BUN 38, Cr 5.56, potassium 4.2, magnesium 1.8, Hgb 9.6. EKG reveals sinus mechanism with PVCs. Telemetry tracings indicate intermittent bigeminy. Current cardiac medications include lasix 80 mg BID and lopressor 25 mg daily. Review of Systems Extensive review of systems performed, negative except mentioned in HPI. Past Medical History Past Medical History: Eye Disorder, Hyperlipidemia, Hypertension, Renal Disease , Thyroid Disorder Additional Past Medical History / Comment(s): KIDNEY DISEASE, ANEMIA, CHRONIC ALLERGIES[sinus drainage],GLAUCOMA. Home dialysis. Thyroid nodules. History of Any Multi-Drug Resistant Organisms: None Reported Past Surgical History: Joint Replacement, Tonsillectomy Additional Past Surgical History / Comment(s): JOSSELIN KNEE REPLACEMENT, RIGHT HIP REPLACEMENT, RT EYE SURGERY FOR GLAUCOMA. Past Anesthesia/Blood Transfusion Reactions: Motion Sickness Past Psychological History: No Psychological Hx Reported Smoking Status: Never smoker Past Alcohol Use History: None Reported Past Drug Use History: None Reported - Past Family History Father Family Medical History: Myocardial Infarction (ND) Mother Family Medical History: CVA/TIA Daughter(s) Family Medical History: Hypertension Son(s) Family Medical History: Hypertension Medications and Allergies Home Medications Medication Instructions Recorded Confirmed Type Dorzolamide HCl/Timolol Maleat 1 drop LEFT EYE BID 05/10/14 08/29/17 History [Cosopt Eye Drops] Ketorolac 0.5% Ophth Soln [Acular 1 drops RIGHT EYE BID 05/10/14 08/29/17 History 0.5%] Latanoprost Ophth [Xalatan 0.005%] 1 drops LEFT EYE HS 05/10/14 08/29/17 History prednisoLONE ACETATE 1% OPHTH 1 drop RIGHT EYE BID 05/10/14 08/29/17 History [Pred Forte 1%] Cholecalciferol [Vitamin D3] 2,000 unit PO DAILY 06/10/16 08/29/17 History Fluticasone Nasal Reeds [Flonase 1 spr EA NOSTRIL DAILY 06/10/16 08/29/17 History Nasal Reeds] Potassium Chloride [K-Tab ER] 10 meq PO DAILY 06/10/16 08/29/17 History Vit C/E/Zn/Coppr/Lutein/Zeaxan 1 cap PO BID 06/10/16 08/29/17 History [Preservision Areds 2 Softgel] Aspirin 81 mg PO DAILY #0 chew 06/13/16 08/29/17 Rx Metoprolol Tartrate 25 mg PO DAILY 07/25/17 08/29/17 History Calcitriol 0.5 mcg PO MOFR 08/29/17 08/29/17 History Calcium Carb-Mag Carb-Folic 1 tab PO W/LUNCH 08/29/17 08/29/17 History [Magnebind 400] Magnesium Oxide [Mag-Ox] 400 mg PO DAILY 08/29/17 08/29/17 History Vitamin B12 Sl 500 mcg PO DAILY 08/29/17 08/29/17 History Allergies Allergy/AdvReac Type Severity Reaction Status Date / Time sevelamer carbonate Allergy Unknown Itching Verified 08/29/17 11:59 [From [facility]] Physical Exam Vitals: Vital Signs Temp Pulse Resp BP BP Pulse Ox 09/04/17 07:25 78 18 09/04/17 07:00 97.5 F L 78 18 147/66 94 L 09/03/17 21:29 97.8 F 79 18 141/62 92 L 09/03/17 18:30 70 144/63 09/03/17 17:30 80 138/86 09/03/17 16:32 79 18 123/78 97 09/03/17 16:00 79 18 09/03/17 14:33 97.5 F L 79 18 92 L 09/03/17 14:00 77 16 155/67 94 L 09/03/17 13:45 72 20 158/70 100 09/03/17 13:36 98 F 72 20 155/70 100 09/03/17 12:16 98.2 F 82 20 104/57 104/57 95 Intake and Output 09/03/17 09/04/17 09/04/17 22:59 06:59 14:59 Intake Total 150 250 240 Balance 150 250 240 Intake: Intake, IV Titration 100 100 Amount Sodium Ferric Gluconat- 100 100 Sucrose 125 mg In Sodium Chloride 0.9% 100 ml @ 100 mls/hr IVPB DAILY@ 1200 [facility] Rx#:[id number] Oral 50 150 240 Other: Voiding Method CAPD Bedside Commode # Voids 1 Weight 75.8 kg Patient Weight 09/05/17 06:59 Weight 75.8 kg GENERAL: Well-appearing, well-nourished and in no acute distress. NECK: Supple without JVD or thyromegaly with dialysis catheter in place right neck dressing clean dry and intact. LUNGS: Breath sounds clear to auscultation bilaterally. Respiration equal and unlabored. No wheezes, rales or rhonchi. HEART: Regular rate and rhythm without murmurs, rubs or gallops. S1 and S2 heard. EXTREMITIES: Normal range of motion, no edema. No clubbing or cyanosis. Peripheral pulses intact. Results 09/03/17 21:17 09/03/17 07:10 Cardiac Enzymes 09/03/17 09/03/17 09/04/17 Range/Units 15:48 21:17 03:44 Troponin I 0.053 H* 0.051 H* 0.055 H* (0.000-0.034) ng/mL CBC 09/03/17 09/03/17 Range/Units 16:26 21:17 WBC 10.5 11.3 H (3.8-10.6) k/uL RBC 3.63 L 3.38 L (3.80-5.40) m/uL Hgb 10.5 L 9.6 L (11.4-16.0) gm/dL Hct 34.0 31.1 L (34.0-46.0) % Plt Count 376 372 (150-450) k/uL Current Medications Generic Name Dose Route Start Last Admin Trade Name Freq PRN Reason Stop Dose Admin Acetaminophen 500 mg 08/30/17 08:49 08/30/17 09:33 Tylenol Tab PO 500 mg Q4HR PRN Administration Fever and/ or Mild Pain Hydrocodone Bitart/Acetaminophen 1 each 08/29/17 18:01 09/03/17 14:52 [place] 5-325 PO 1 each Q6HR PRN Administration Moderate Pain Ca Carbonate/Folic Ac/Mg Carbonate 1 each 08/30/17 12:30 09/03/17 13:27 Magnebind 400 PO Not Given W/LUNCH [facility] Calcitriol 0.5 mcg 08/30/17 12:00 09/02/17 12:03 Rocaltrol PO Not Given MOFR [facility] Cholecalciferol 2,000 unit 08/30/17 12:00 09/03/17 13:25 Vitamin D3 PO Not Given DAILY@1200 [facility] Cyanocobalamin 500 mcg 08/30/17 12:00 09/03/17 13:25 Vitamin B-12 PO Not Given DAILY@1200 [facility] Darbepoetin Wilfredo 60 mcg 09/01/17 15:00 09/01/17 14:37 Aranesp SQ 60 mcg Q7D FENG Administration Dorzolamide/Timolol 1 drops 08/29/17 21:00 09/04/17 09:11 Cosopt LEFT EYE 1 drops BID FENG Administration Fluticasone Propionate 1 spray 08/30/17 09:00 09/04/17 09:12 Flonase Nasal Reeds EA NOSTRIL 1 spray DAILY [facility] Administration Furosemide 80 mg 08/31/17 16:00 09/04/17 09:06 Lasix PO 80 mg BID@0900,1600 FENG Administration Hydralazine HCl 10 mg 09/01/17 15:33 09/02/17 00:12 Apresoline IVP 10 mg Q4HR PRN Administration Blood Pressure - High Hydromorphone HCl 0.5 mg 08/29/17 18:01 Dilaudid Syringe IVP Q6HR PRN Severe Pain Ceftazidime 1 gm/ Sodium 50 mls @ 100 mls/hr 09/03/17 13:30 09/04/17 09:12 Chloride IVPB 100 mls/hr Q24HR FENG Administration Ferric Sodium Gluconate 125 mg 110 mls @ 100 mls/hr 09/03/17 19:00 09/03/17 20:27 / Sodium Chloride IVPB 09/05/17 13:05 100 mls/hr DAILY@1200 [facility] Administration Ketorolac Tromethamine 1 drops 08/29/17 21:00 09/04/17 09:10 Acular RIGHT EYE 1 drops BID [facility] Administration Lactulose 20 gm 09/02/17 09:00 09/04/17 09:07 Cephulac PO 20 gm BID FENG Administration Latanoprost 1 drops 08/29/17 21:00 09/03/17 20:35 Xalatan 0.005% LEFT EYE 1 drops HS [facility] Administration Magnesium Oxide 400 mg 08/30/17 12:00 09/03/17 13:26 Mag-Ox PO Not Given DAILY@1200 [facility] Metoclopramide HCl 5 mg 09/01/17 12:15 09/04/17 07:03 Reglan IVP Not Given Q6HR [facility] Metoprolol Tartrate 25 mg 08/30/17 09:00 09/04/17 09:08 Lopressor PO 25 mg DAILY [facility] Administration Metronidazole 500 mg 09/03/17 16:00 09/04/17 09:09 Flagyl PO 500 mg TID [facility] Administration Miscellaneous Information 1 each 09/02/17 11:00 Potassium Per Protocol MISCELLANE DAILY PRN Per Protocol Protocol Multivitamins/Minerals 1 each 08/29/17 17:30 09/04/17 09:06 Ivite PO 1 each BID-W/MEALS [facility] Administration Naloxone HCl 0.2 mg 08/29/17 15:45 Narcan IV Q2M PRN Opioid Reversal Ondansetron HCl 4 mg 08/29/17 18:02 09/01/17 22:17 Zofran IVP 4 mg Q6HR PRN Administration Nausea And Vomiting Pantoprazole Sodium 40 mg 08/29/17 21:00 09/04/17 09:12 Protonix IVP 40 mg BID [facility] Administration Prednisolone Acetate 1 drops 08/29/17 21:00 09/04/17 09:10 Pred Forte 1% RIGHT EYE 1 drops BID [facility] Administration Simethicone 80 mg 09/02/17 10:43 Mylicon Chew PO QID PRN Dyspepsia Temazepam 15 mg 08/29/17 18:01 Restoril PO HS PRN Insomnia Intake and Output 09/03/17 09/04/17 09/04/17 22:59 06:59 14:59 Intake Total 150 250 240 Balance 150 250 240 Intake: Intake, IV Titration 100 100 Amount Sodium Ferric Gluconat- 100 100 Sucrose 125 mg In Sodium Chloride 0.9% 100 ml @ 100 mls/hr IVPB DAILY@ 1200 [facility] Rx#:[id number] Oral 50 150 240 Other: Voiding Method CAPD Bedside Commode # Voids 1 Weight 75.8 kg Patient Weight 09/05/17 06:59 Weight 75.8 kg 09/03/17 21:17 09/03/17 07:10 Assessment and Plan Plan: ASSESSMENT 1. Nonsustained ventricular tachycardia, one episode 2. Essential hypertension 3. Hyperlipidemia 4. Chronic kidney disease undergoing hemodialysis status post infected peritoneal dialysis port. 5. Elevated troponin PLAN Elevated troponin values not consistent with an acute coronary event. Appears secondary to chronic renal disease with inconsistent pattern. Ventricular arrhythmia was likely secondary to fluid volume and electrolyte imbalance during hemodialysis. We recommend continue patient on beta cortney. Echocardiogram was performed and reveals preserved left ventricular function. We recommend the patient becomes stabilized on this new hemodialysis process follow-up with Dr. Edwards as an outpatient for a stress test in the office. Thank you kindly for this consultation, please don't hesitate to call with any further questions. Nurse Practitioner note has been reviewed, I agree with a documented findings and plan of care. Patient was seen and examined.
[2017-09-04 12:50] LABS: Hepatitis B Surface Ag Index 0.05
[2017-09-04] MEDS: MAGNESIUM OXIDE 400 MG TAB PO SCH (14:04)
[2017-09-04] MEDS: SODIUM FERRIC GLUCONAT-SUCROSE 125 MG in SODIUM CHLORIDE 0.9% 100 ML IVPB SCH (14:04)
[2017-09-04] MEDS: CYANOCOBALAMIN 500 MCG TAB PO SCH (14:05)
[2017-09-04] MEDS: CALCIUM CARB-MAG CARB-FOLIC 1 EACH TAB PO SCH (14:05)
[2017-09-04] MEDS: CHOLECALCIFEROL 1,000 UNIT TAB PO SCH (14:05)
--- NOTE | 2017-09-04 16:22 | PN ---
PROGRESS NOTE Patient is seen for followup for end-stage renal disease. She had her hemodialysis treatment yesterday. Towards the end, the patient had issues with clotting and we were not able to return her blood. She lost about 300 mL of blood. Hemoglobin was drawn. It was 9.6 g/dL yesterday. The patient is scheduled for hemodialysis again today. She has had her PD catheter removed. She states she is feeling very well with no complaints of pain and is looking forward to going to rehab. PHYSICAL EXAMINATION: Blood pressure is 147/66, heart rate 78 per minute. Patient is afebrile. EXAMINATION OF THE HEART: S1, S2. EXAMINATION OF LUNGS: Bilateral breath sounds are heard. ABDOMEN: Soft. There is no tenderness noted. Examination of lower extremities shows no evidence of edema. LABS: Hemoglobin 9.6 from yesterday. Serum potassium was 4.2 yesterday. ASSESSMENT: 1. End-stage renal disease, on hemodialysis recently started after switching from PD to hemodialysis. This will most likely be temporary and then we will try to consider switching back to PD in about one months' time as outpatient. 2. Continuous ambulatory peritoneal dialysis peritonitis with fluid culture growing anaerobic Gram-negative bacilli with previous history of E coli peritonitis, status post removal of the PD catheter, maintained on antibiotics, being followed by ID. Patient is currently on IV Fortaz. 3. Iron deficiency, currently maintained on IV iron. 4. Hypertension, fairly well controlled. 5. Chronic kidney disease bone mineral disorder, maintained on calcitriol. PLAN: Plan for outpatient placement at [facility] for hemodialysis. Continue antibiotics. Patient can be discharged from nephrology standpoint as soon as she has an outpatient chair time. MMODL / IJN: [id number] /
--- NOTE | 2017-09-04 18:13 | PN ---
PROGRESS NOTE ADDENDUM TO PROGRESS NOTE: DATE OF SERVICE: 09/03/2017 This 81-year-old woman who was admitted with multiple medical problems, including acute peritonitis, is being closely monitored. Patient is on broad-spectrum IV antibiotics. PHYSICAL EXAMINATION: Pulse is 98, blood pressure 157/89, respiration 30, temperature 98.4, pulse ox 94% on room air. NECK: No jugular venous distention. CARDIOVASCULAR SYSTEM: S1, S2 muffled. RESPIRATORY SYSTEM: Breath sounds diminished at the bases. A few scattered rhonchi. ABDOMEN: Soft, nontender. No mass palpable. LEGS: No edema. No swelling. NERVOUS SYSTEM: No focal deficit. LABS: Labs are noted. ASSESSMENT: 1. Nausea, vomiting, diarrhea; possible acute gastritis and sepsis. 2. Acute peritonitis and sepsis secondary to CAPD catheter. 3. History of chronic respiratory failure and chronic obstructive pulmonary disease. 4. History of recent bacterial peritonitis. 5. History of hyponatremia. 6. Hypokalemia. 7. Hypertension. RECOMMENDATIONS AND DISCUSSION: Please refer to my the previous dictation. Will continue to monitor. Continue with the antibiotics. Further recommendations to follow. MMODL / IJN: [id number] /
--- NOTE | 2017-09-04 20:49 | PN ---
PROGRESS NOTE DATE OF SERVICE: 09/04/2017 REASON FOR FOLLOWUP: PD catheter-associated peritonitis. INTERVAL HISTORY: The patient is afebrile. She is feeling better after removal of the PD catheter. The patient denies any chest pain or shortness of breath or cough. No nausea, vomiting or diarrhea. PHYSICAL EXAMINATION: Blood pressure 136/58 with a pulse of 89, temperature 98.4. She is 95% on room air. General description is an elderly female lying in bed in no distress. RESPIRATORY SYSTEM: Unlabored breathing. Clear to auscultation anteriorly. HEART: S1, S2. Regular rate and rhythm. ABDOMEN: Soft. No tenderness. LABS: Hemoglobin 9.3, white count of 11.3. Peritoneal fluid did show anaerobic Gram-negative bacilli. DIAGNOSTIC IMPRESSION AND PLAN: Patient with a PD catheter-associated peritonitis, status post removal of the PD catheter. Culture now showing an anaerobic Gram-negative. Patient to continue with oral Flagyl. Outpatient cultures were E coli. We are still waiting for the sensitivity on that. She is currently on IV Fortaz. Hopefully finish therapy with oral antibiotics. Continue supportive care. MMODL / IJN: [id number] /
[2017-09-04] MEDS: LATANOPROST 0.005% OPHTH DROPS 2.5 ML BTL LEFT EYE SCH (21:19)
[2017-09-05] MEDS: METOCLOPRAMIDE 5 MG/ML 2 ML VIAL IVP SCH ×3 (05:53→17:42)
[2017-09-05] MEDS: FLUTICASONE 50MCG/SPRAY NASAL 16GM EA NOSTRIL SCH (07:52)
[2017-09-05] MEDS: PANTOPRAZOLE 40 MG/10 ML VIAL IVP SCH ×2 (07:53→22:08)
[2017-09-05] MEDS: LACTULOSE 20 GM/30 ML CUP PO SCH ×2 (07:53→22:07)
[2017-09-05] MEDS: METOPROLOL TARTRATE 25 MG TAB PO SCH ×2 (07:54→22:08)
[2017-09-05] MEDS: metroNIDAZOLE 500 MG TAB PO SCH ×3 (07:54→22:16)
[2017-09-05] MEDS: FUROSEMIDE 80 MG TAB PO SCH ×2 (07:54→17:40)
[2017-09-05] MEDS: VIT A,C & E-LUTEIN-MINERALS 1 EACH TAB PO SCH ×2 (07:54→17:40)
[2017-09-05] MEDS: KETOROLAC 0.5% OPHTH DROPS 5 ML BTL RIGHT EYE SCH ×2 (07:55→22:06)
[2017-09-05] MEDS: DORZOLAMIDE-TIMOLOL 2-0.5% DROPS 10 ML BTL LEFT EYE SCH ×2 (08:11→22:06)
[2017-09-05] MEDS: prednisoLONE ACETATE 1% OPHTH DROPS 5 ML BTL RIGHT EYE SCH ×2 (08:11→22:08)
[2017-09-05] MEDS ORDERED: HEPARIN SODIUM,PORCINE 5,000 UNIT/ML 1 ML VIAL ONE (09:00)
--- NOTE | 2017-09-05 12:19 | P.DS ---
Providers Date of admission: 08/29/17 15:45 Attending physician: Rogerio Stein Consults: 08/29/17 15:46 Consult Physician Routine Consulting Provider: Della Andres Consult Reason/Comments: Renal failure CAPD, cloudy fluid Do you want consulting provider notified?: Yes 08/29/17 18:04 Consult Physician Routine Consulting Provider: Lina See Consult Reason/Comments: sepsis Do you want consulting provider notified?: Yes 09/02/17 10:45 Consult Physician Routine Consulting Provider: Dmitriy Garcia Consult Reason/Comments: removal of peritoneal dialysis catheter Do you want consulting provider notified?: Yes 09/02/17 11:04 Consult Physician Routine Consulting Provider: Srikanth Peacock Consult Reason/Comments: hemodialysis port insertion Do you want consulting provider notified?: Yes 09/03/17 15:58 Consult Physician Routine Consulting Provider: Demetrio Edwards Consult Reason/Comments: multipy PVC Do you want consulting provider notified?: Yes Primary care physician: [facility] Course: This 81-year-old woman with a past medical history of multiple medical problems was admitted with the features of acute peritonitis. Possibly secondary to CAPD catheter. The patient was treated with antibiotics. This CAPD catheter was removed. Patient had a permacath placed on the right neck. Hemodialysis initiated. During the hospitalization patient was seen by multiple consultants including infection disease nephrology and as well as vascular surgery. Patient also had a recent episode of for peritonitis in the outpatient setting also. Overall patient patient showed significant improvement. Abdominal pain improved. Patient be discharged in a stable condition with guarded prognosis. Total time taken 35 minutes. On exam vitals stable. Cardio S1 and S2 normal. Respiratory system clear to auscultation. abdomen soft mild diffuse discomfort. Bowel sounds present. Legs nontender no swelling. Final diagnosis 1. Acute peritonitis secondary to CAPD catheter and sepsis present on admission. 2. Nausea vomiting diarrhea possible acute gastritis. 3. History of for chronic respiratory failure hypoxic and COPD. 4. History of recent bacterial peritonitis. 5. History of hyponatremia. 6. Hypokalemia. 7. Hypertension. Patient Condition at Discharge: Stable Plan - Discharge Summary New Discharge Prescriptions: No Action Latanoprost Ophth [Xalatan 0.005%] 1 drops LEFT EYE HS Dorzolamide HCl/Timolol Maleat [Cosopt Eye Drops] 1 drop LEFT EYE BID prednisoLONE ACETATE 1% OPHTH [Pred Forte 1%] 1 drop RIGHT EYE BID Ketorolac 0.5% Ophth Soln [Acular 0.5%] 1 drops RIGHT EYE BID Vit C/E/Zn/Coppr/Lutein/Zeaxan [Preservision Areds 2 Softgel] 1 cap PO BID Fluticasone Nasal [place] [Flonase Nasal [place]] 1 spr EA NOSTRIL DAILY Cholecalciferol [Vitamin D3] 2,000 unit PO DAILY Potassium Chloride [K-Tab ER] 10 meq PO DAILY Aspirin 81 mg PO DAILY #0 chew Metoprolol Tartrate 25 mg PO DAILY Calcitriol 0.5 mcg PO MOFR Magnesium Oxide [Mag-Ox] 400 mg PO DAILY Vitamin B12 Sl 500 mcg PO DAILY Calcium Carb-Mag Carb-Folic [Magnebind 400] 1 tab PO W/LUNCH Discharge Medication List Dorzolamide HCl/Timolol Maleat [Cosopt Eye Drops] 1 drop LEFT EYE BID 05/10/14 [ History] Ketorolac 0.5% Ophth Soln [Acular 0.5%] 1 drops RIGHT EYE BID 05/10/14 [History] Latanoprost Ophth [Xalatan 0.005%] 1 drops LEFT EYE HS 05/10/14 [History] prednisoLONE ACETATE 1% OPHTH [Pred Forte 1%] 1 drop RIGHT EYE BID 05/10/14 [ History] Cholecalciferol [Vitamin D3] 2,000 unit PO DAILY 06/10/16 [History] Fluticasone Nasal [place] [Flonase Nasal [place]] 1 spr EA NOSTRIL DAILY 06/10/16 [ History] Potassium Chloride [K-Tab ER] 10 meq PO DAILY 06/10/16 [History] Vit C/E/Zn/Coppr/Lutein/Zeaxan [Preservision Areds 2 Softgel] 1 cap PO BID 06/10 [History] Aspirin 81 mg PO DAILY #0 chew 06/13/16 [Rx] Metoprolol Tartrate 25 mg PO DAILY 07/25/17 [History] Calcitriol 0.5 mcg PO MOFR 08/29/17 [History] Calcium Carb-Mag Carb-Folic [Magnebind 400] 1 tab PO W/LUNCH 08/29/17 [History] Magnesium Oxide [Mag-Ox] 400 mg PO DAILY 08/29/17 [History] Vitamin B12 Sl 500 mcg PO DAILY 08/29/17 [History] Follow up Appointment(s)/Referral(s): Mario Okeefe MD [Primary Care Provider] - 1-2 days Activity/Diet/Wound Care/Special Instructions: Patient is scheduled to receive Hemodialysis at the [facility] on with a chair time of 5:45am. First chair time is scheduled this Saturday. Pt is asked to arrive 15minutes early, at 5:30am for initial appointment.
[2017-09-05] MEDS: SODIUM FERRIC GLUCONAT-SUCROSE 125 MG in SODIUM CHLORIDE 0.9% 100 ML IVPB SCH (12:22)
[2017-09-05] MEDS: CYANOCOBALAMIN 500 MCG TAB PO SCH (12:24)
[2017-09-05] MEDS: CHOLECALCIFEROL 1,000 UNIT TAB PO SCH (12:24)
[2017-09-05] MEDS: MAGNESIUM OXIDE 400 MG TAB PO SCH (12:24)
[2017-09-05] MEDS: CALCIUM CARB-MAG CARB-FOLIC 1 EACH TAB PO SCH (12:24)
--- NOTE | 2017-09-05 12:33 | P.PN ---
Subjective Progress Note Date: 09/05/17 Mrs Zhang is a 81-year-old female with past medical history significant for hypertension, hyperlipidemia, chronic renal failure previously on peritoneal dialysis just started on hemodialysis this admission. We have been asked to see this patient for an episode of non-sustained ventricular tachycardia during dialysis. She is seen today resting comfortably sitting up in the chair after eating breakfast. She denies chest pain, shortness of breath , dizziness or palpitations. She states she is feeling good and ready to go home. She underwent a full treatment of dialysis yesterday without incident. Telemetry tracings indicates sinus mechanism with no arrhythmia. Blood pressure 140/72 with heart rate 97. Objective - Vital Signs Vital signs: Vital Signs Temp 97.9 F 09/05/17 07:00 Pulse 97 09/05/17 08:00 Resp 16 09/05/17 08:00 BP 140/72 09/05/17 07:00 Pulse Ox 93 L 09/04/17 23:00 Intake & Output 09/04/17 09/05/17 09/05/17 18:59 06:59 18:59 Intake Total 870 450 Balance 870 450 Weight 75.8 kg 70.9 kg Intake: Intake, IV Titration 150 Amount Sodium Ferric Gluconat- 100 Sucrose 125 mg In Sodium Chloride 0.9% 100 ml @ 100 mls/hr IVPB DAILY@ 1200 [facility] Rx#:[id number] cefTAZidime 1 gm In 50 Sodium Chloride 0.9% 50 ml @ 100 mls/hr IVPB Q24HR [facility] Rx#:[id number] Oral 720 450 Other: Voiding Method Bedside Commode Bedside Commode Bedside Commode # Voids 1 0 1 # Bowel Movements 1 1 - Exam GENERAL: Well-appearing, well-nourished and in no acute distress. NECK: Supple without JVD or thyromegaly. LUNGS: Breath sounds clear to auscultation bilaterally. Respiration equal and unlabored. No wheezes, rales or rhonchi. HEART: Regular rate and rhythm without murmurs, rubs or gallops. S1 and S2 heard. EXTREMITIES: Normal range of motion, no edema. No clubbing or cyanosis. Peripheral pulses intact and strong. - Labs CBC & Chem 7: 09/03/17 21:17 09/03/17 07:10 Labs: Abnormal Lab Results - Last 24 Hours (Table) 09/03/17 Range/Units 16:26 TSH 0.035 L (0.465-4.680) mIU/L Free T4 3.88 H (0.78-2.19) ng/dL Microbiology - Last 24 Hours (Table) 08/29/17 18:21 Blood Culture - Final Blood No Growth after 144 hours 08/31/17 02:10 Gram Stain - Preliminary Peritoneal Fluid Body Fluid Culture - Preliminary Anaerobic Gm Negative Bacilli Assessment and Plan Plan: ASSESSMENT 1. Nonsustained ventricular tachycardia, one episode 2. Essential hypertension 3. Hyperlipidemia 4. Chronic kidney disease undergoing hemodialysis status post infected peritoneal dialysis port. 5. Elevated troponin 6. Hyperthyroid with decreased TSH and elevated free T4 PLAN From cardiac perspective Mrs Zhang is stable for discharge home. She should continue beta cortney as previously ordered. She can follow up with Dr. Edwards in 4 weeks. Medical team to manage her hyperthyroid state. Nurse Practitioner note has been reviewed, I agree with a documented findings and plan of care. Patient was seen and examined.
[2017-09-05] MEDS ORDERED: METOPROLOL TARTRATE 25 MG TAB PO STA (14:34)
--- NOTE | 2017-09-05 15:10 | P.PN ---
Progress Note - Text Received call from nursing staff stating pt was in atrial fibrillation. Went up to see her. She is sitting up in bed in no acute distress. She denies chest pain , shortness of breath, dizziness or palpitations. Heart with irregular rate and rhythm on auscultation. Rate 110-140 at present time. No murmurs or rubs. S1 S2 heard. Lungs CTA b/l no wheezes, rales or rhonchi Alert and oriented x3 Impression New onset atrial fibrillation with rapid ventricular response Plan Check CBC and coagulation profile prior to starting heparin drip, last hgb 09/03 9.6. Anticoagulation discussed with patient and her daughter and they are agreeable at this time to move forward. Check BMP and magnesium level. Additional dose of metoprolol 25 mg now and increase daily dosing to BID. If rate is uncontrolled on that ragmen will consider cardizem drip. Continue telemetry monitoring. We will continue to follow. Nurse Practitioner note has been reviewed, I agree with a documented findings and plan of care. Patient was seen and examined.
--- NOTE | 2017-09-05 15:23 | P.PN ---
Subjective Progress Note Date: 09/05/17 Principal diagnosis: renal failure Patient doing well today. Denies abdominal pain. She is tolerating her diet. Possible discharge later today. Objective - Vital Signs Vital signs: Vital Signs Temp 98.9 F 09/05/17 14:57 Pulse 64 09/05/17 14:57 Resp 20 09/05/17 14:57 BP 160/76 09/05/17 14:57 Pulse Ox 97 09/05/17 14:57 Intake & Output 09/04/17 09/05/17 09/05/17 18:59 06:59 18:59 Intake Total 870 450 Balance 870 450 Weight 75.8 kg 70.9 kg Intake: Intake, IV Titration 150 Amount Sodium Ferric Gluconat- 100 Sucrose 125 mg In Sodium Chloride 0.9% 100 ml @ 100 mls/hr IVPB DAILY@ 1200 [facility] Rx#:[id number] cefTAZidime 1 gm In 50 Sodium Chloride 0.9% 50 ml @ 100 mls/hr IVPB Q24HR [facility] Rx#:[id number] Oral 720 450 Other: Voiding Method Bedside Commode Bedside Commode Bedside Commode # Voids 1 0 4 # Bowel Movements 1 1 - Exam Abdomen: Soft, nondistended, mild tenderness - Labs CBC & Chem 7: 09/03/17 21:17 09/03/17 07:10 Labs: Abnormal Lab Results - Last 24 Hours (Table) 09/03/17 Range/Units 16:26 TSH 0.035 L (0.465-4.680) mIU/L Free T4 3.88 H (0.78-2.19) ng/dL Microbiology - Last 24 Hours (Table) 08/31/17 02:10 Gram Stain - Final Peritoneal Fluid Body Fluid Culture - Final Bacteroides uniformis 08/29/17 18:21 Blood Culture - Final Blood No Growth after 144 hours Assessment and Plan (1) Peritonitis associated with peritoneal dialysis Narrative/Plan: Continue diet as tolerated. We'll sign off at this point. Please contact if needed. Follow-up in my office as needed postdischarge. Status: Acute
[2017-09-05 15:32] LABS: Anisocytosis Slight; Basophils # (A) 0.1 k/uL (0-0.2); Basophils % (A) 0 %; CH 28.1; CHCM 29.6; Eosinophils # (A) 0.1 k/uL (0-0.7); Eosinophils % (A) 0 %; HCT 33.4 % (34.0-46.0); HDW 2.51; Hypochromasia Marked; Luc # (Auto) 0.33; Luc % (Auto) 2; Lymphocytes % (A) 10 %; MCH 28.6 pg (25.0-35.0); MCV 95.4 fL (80.0-100.0); Mean Platelet Volume 7.6; Monocytes # (A) 1.7 k/uL (0-1.0); Monocytes % (A) 8 %; Neutrophils # (A) 15.7 k/uL (1.3-7.7); Neutrophils % (A) 79 %; RDW 16.7 % (11.5-15.5); WBC 19.9 k/uL (3.8-10.6); WBC (Perox) 19.59
[2017-09-05 15:33] LABS: INR 1.2 (<1.2); Partial Thromboplastin Time 35.7 sec (22.0-30.0); Prothrombin Time 12.1 sec (9.0-12.0)
[2017-09-05 15:55] LABS: Magnesium 1.9 mg/dL (1.6-2.3); Potassium 3.5 mmol/L (3.5-5.1)
--- NOTE | 2017-09-05 16:17 | PN ---
PROGRESS NOTE DATE OF SERVICE: 09/05/2017 This 81-year-old woman who was admitted with acute peritonitis also had nausea, vomiting and diarrhea. The patient is on broad-spectrum IV antibiotics. Peritoneal dialysis catheter has been removed and a new hemodialysis catheter was inserted. Patient was started on hemodialysis. The patient was noted to have atrial fibrillation with a fast ventricular rate. Cardiology has seen the patient. Patient has been started on Cardizem at this time. The patient had indeterminate troponin elevations. Patient had non-sustained ventricular tachycardia. Past medical history reviewed. REVIEW OF SYSTEMS: CARDIOVASCULAR SYSTEM: As mentioned earlier. RESPIRATORY SYSTEM: As mentioned earlier. GI: No nausea, vomiting. : No dysuria or retention. NERVOUS SYSTEM: No numbness, weakness. CURRENT MEDICATIONS: Current medications are reviewed and include: 1. Tylenol 500 mg q.4 p.r.n. 2. [place] 5 mg q.6. 3. Magnebind 400 mg. 4. Calcitriol 0.05 subcutaneously. 5. Ceftazidime 1 gram b.i.d. 6. Vitamin D3 1000 units. 7. Vitamin B12. 8. Aranesp. 9. Cosopt. 10.Flonase. 11.Lasix. 12.Apresoline. 13.Dilaudid. 14.Cephulac. 15.Reglan. 16.Lopressor. 17.Flagyl. 18.Narcan. 19.Zofran. 20.Mylicon. 21.Restoril. PHYSICAL EXAMINATION: Patient is alert, oriented x3. Pulse is 98, blood pressure 147/72, respiration 16, temperature 97.9, pulse ox 98% on room air. HEENT: Conjunctivae normal. NECK: No jugular venous distention. CARDIOVASCULAR SYSTEM: S1, S2 muffled. RESPIRATORY SYSTEM: Breath sounds diminished at the bases. A few scattered rhonchi. No crackles. ABDOMEN: Soft, non-tender. Status post peritoneal catheter removal. Bowel sounds present. LEGS: No edema. NERVOUS SYSTEM: No focal deficit. LABS AT THIS TIME: WBC 11.3, hemoglobin 10.6, troponin 0.051. TSH is 0.035. Free T4 is 3.88. Hepatitis B is negative. ASSESSMENT: 1. Acute peritonitis secondary to CAPD catheter with sepsis, present on admission. 2. Nausea, vomiting, diarrhea; possible acute gastritis. 3. Non-sustained ventricular tachycardia. 4. History of chronic obstructive pulmonary disease and chronic hypoxic respiratory failure. 5. History of recent bacterial peritonitis. 6. History of hyponatremia. 7. Hypokalemia. 8. Hypertension. 9. Iatrogenic hyperthyroidism . RECOMMENDATIONS AND DISCUSSION: I recommend to continue current medication, continue symptomatic treatment. Otherwise at this time we will monitor the patient closely. Cardiology consultation. Two -D echo with Doppler. I also recommend endocrine consultation. Guarded prognosis. Further recommendations to follow. MMODL / IJN: [id number] / JOHN
--- NOTE | 2017-09-05 17:29 | PN ---
PROGRESS NOTE DATE OF SERVICE: 09/05/2017. REASON FOR FOLLOWUP: Peritonitis. INTERVAL HISTORY: The patient is afebrile. She is feeling better. Overall, abdominal pain has improved. Denies any chest pain, shortness of breath or cough. No diarrhea. EXAMINATION: Blood pressure is 160/76 with pulse of 64, temperature 98.9. She is 96% on room air. GENERAL DESCRIPTION: An elderly female up in the bed in no distress. RESPIRATORY SYSTEM: Unlabored breathing. Clear to auscultation anteriorly. HEART: S1, S2. Regular rate and rhythm. ABDOMEN: Soft. No tenderness. LABS: The peritoneal fluid finalized with Bacteroides uniformis. DIAGNOSTIC IMPRESSION AND PLAN: Patient with a peritoneal dialysis catheter-associated peritonitis for which the patient will continue on Flagyl 500 mg 3 times a day for another 10 days. This script has been sent to the pharmacy. Continue supportive care. MMMARCO ANTONIOL / IJN: [id number] /
[2017-09-05] MEDS ORDERED: AMPICILLIN-SULBACTAM 3 GM in SODIUM CHLORIDE 0.9% 100 ML IVPB STA (17:33)
[2017-09-05] MEDS: LATANOPROST 0.005% OPHTH DROPS 2.5 ML BTL LEFT EYE SCH (22:07)
--- NOTE | 2017-09-05 22:11 | PN ---
PROGRESS NOTE Patient is seen for followup for end-stage renal disease. She is currently awaiting placement to [facility]. This morning patient states she is feeling well. She denies any significant complaints. No abdominal pain. She feels like she wants to walk; however, patient feels weak. She has not been out of bed since admission except for using a bedside commode. PHYSICAL EXAMINATION: Blood pressure 140/72, heart rate 98 per minute. Patient is afebrile. EXAMINATION OF THE HEART: S1, S2. EXAMINATION OF LUNGS: Bilateral breath sounds are heard. Decreased breath sounds at bases. ABDOMEN: Soft, non-tender. Examination of lower extremities shows no evidence of edema. LABS: Potassium 3.5 from this morning. BUN 25, serum creatinine 3.7. ASSESSMENT: 1. End-stage renal disease, currently on hemodialysis, planning for outpatient placement at the [facility]. 2. CAPD peritonitis, being followed by ID, maintained on Flagyl and Unasyn. Her final culture this admission was bacteroides. Previously she had E coli. The PD catheter has been discontinued. The patient will be maintained on hemodialysis for at least 4 to 6 weeks. 3. Anemia of chronic disease. 4. Chronic kidney disease bone mineral disorder. 5. Recent atrial fibrillation this afternoon. It appears that patient went into atrial fibrillation, and therefore her discharge is held. MMODL / IJN: [id number] /
[2017-09-06] MEDS: METOCLOPRAMIDE 5 MG/ML 2 ML VIAL IVP SCH ×5 (04:14→23:44)
[2017-09-06] MEDS: prednisoLONE ACETATE 1% OPHTH DROPS 5 ML BTL RIGHT EYE SCH ×2 (11:07→21:30)
[2017-09-06] MEDS: PANTOPRAZOLE 40 MG/10 ML VIAL IVP SCH (11:07)
[2017-09-06] MEDS: KETOROLAC 0.5% OPHTH DROPS 5 ML BTL RIGHT EYE SCH ×2 (11:08→21:29)
[2017-09-06] MEDS: metroNIDAZOLE 500 MG TAB PO SCH ×3 (11:08→21:30)
[2017-09-06] MEDS: FUROSEMIDE 80 MG TAB PO SCH ×2 (11:08→16:39)
[2017-09-06] MEDS: METOPROLOL TARTRATE 25 MG TAB PO SCH ×2 (11:08→21:30)
[2017-09-06] MEDS: FLUTICASONE 50MCG/SPRAY NASAL 16GM EA NOSTRIL SCH (11:08)
[2017-09-06] MEDS: DORZOLAMIDE-TIMOLOL 2-0.5% DROPS 10 ML BTL LEFT EYE SCH ×2 (11:09→21:29)
[2017-09-06] MEDS: VIT A,C & E-LUTEIN-MINERALS 1 EACH TAB PO SCH ×2 (11:09→18:03)
[2017-09-06] MEDS: AMPICILLIN-SULBACTAM 3 GM in SODIUM CHLORIDE 0.9% 100 ML IVPB SCH (11:09)
[2017-09-06] MEDS: LACTULOSE 20 GM/30 ML CUP PO SCH ×3 (11:10→21:38)
--- NOTE | 2017-09-06 11:35 | P.PN ---
Subjective Progress Note Date: 09/06/17 Mrs Zhang is a 81-year-old female with past medical history significant for hypertension, hyperlipidemia, chronic renal failure previously on peritoneal dialysis just started on hemodialysis this admission. We have been asked to see this patient for an episode of non-sustained ventricular tachycardia during dialysis and then yesterday an episode of atrial tachycardia with a short burst of atrial fibrillation lasting only a few beats. During this episode she was denying any symptoms. She is seen today during dialysis. She denies chest pain, shortness of breath, dizziness or palpitations. Telemetry tracings reviewed and reveal sinus mechanism with PACs. Blood pressure 141/48 with heart rate 78. Objective - Vital Signs Vital signs: Vital Signs Temp 98.4 F 09/06/17 07:00 Pulse 78 09/06/17 07:00 Resp 16 09/06/17 07:00 BP 141/48 09/06/17 07:00 Pulse Ox 95 09/06/17 07:00 Intake & Output 09/05/17 09/06/17 09/06/17 18:59 06:59 18:59 Intake Total 420 Balance 420 Weight 70.9 kg Intake: Oral 420 Other: Voiding Method Bedside Commode Bedside Commode # Voids 4 1 # Bowel Movements 1 1 - Exam GENERAL: Well-appearing, well-nourished and in no acute distress. NECK: Supple without JVD or thyromegaly. LUNGS: Breath sounds clear to auscultation bilaterally. Respiration equal and unlabored. No wheezes, rales or rhonchi. HEART: Regular rate and rhythm without murmurs, rubs or gallops. S1 and S2 heard. EXTREMITIES: Normal range of motion, no edema. No clubbing or cyanosis. Peripheral pulses intact and strong. - Labs CBC & Chem 7: 09/05/17 15:09 09/05/17 15:09 Labs: Abnormal Lab Results - Last 24 Hours (Table) 09/05/17 09/05/17 09/05/17 Range/Units 15:09 15: 15: WBC 19.9 H (3.8-10.6) k/uL RBC 3.50 L (3.80-5.40) m/uL Hgb 10.0 L (11.4-16.0) gm/dL Hct 33.4 L (34.0-46.0) % MCHC 30.0 L (31.0-37.0) g/dL RDW 16.7 H (11.5-15.5) % Neutrophils # 15.7 H (1.3-7.7) k/uL Monocytes # 1.7 H (0-1.0) k/uL PT (9.0-12.0) sec INR (<1.2) APTT (22.0-30.0) sec Sodium 129 L (137-145) mmol/L Carbon Dioxide 19 L (22-30) mmol/L BUN 25 H (7-17) mg/dL Creatinine 3.70 H (0.52-1.04) mg/dL Glucose 165 H (74-99) mg/dL Calcium 8.0 L (8.4-10.2) mg/dL Troponin I 0.074 H* (0.000-0.034) ng/mL 09/05/17 09/05/17 09/06/17 Range/Units 15:09 20:41 02:57 WBC (3.8-10.6) k/uL RBC (3.80-5.40) m/uL Hgb (11.4-16.0) gm/dL Hct (34.0-46.0) % MCHC (31.0-37.0) g/dL RDW (11.5-15.5) % Neutrophils # (1.3-7.7) k/uL Monocytes # (0-1.0) k/uL PT 12.1 H (9.0-12.0) sec INR 1.2 H (<1.2) APTT 35.7 H (22.0-30.0) sec Sodium (137-145) mmol/L Carbon Dioxide (22-30) mmol/L BUN (7-17) mg/dL Creatinine (0.52-1.04) mg/dL Glucose (74-99) mg/dL Calcium (8.4-10.2) mg/dL Troponin I 0.126 H* 0.110 H* (0.000-0.034) ng/mL Microbiology - Last 24 Hours (Table) 08/31/17 02:10 Gram Stain - Final Peritoneal Fluid Body Fluid Culture - Final Bacteroides uniformis Assessment and Plan Plan: ASSESSMENT 1. Nonsustained ventricular tachycardia, one episode 2. Essential hypertension 3. Hyperlipidemia 4. Chronic kidney disease undergoing hemodialysis status post infected peritoneal dialysis port. 5. Elevated troponin 6. Hyperthyroid with decreased TSH and elevated free T4 7. Intermittent atrial tachycardia and PACs. PLAN Mrs Zhang has had intermittent episodes of both ventricular and atrial arrhythmias. Most likely secondary to recent Ash[place]osh catheter insertion and new onset hemodialysis. Her short burst of atrial fibrillation yesterday lasted less than 6 seconds and will not require any long-term anticoagulation at this time. Metoprolol tartrate was increased to BID dosing yesterday. She seems to be tolerating this well and should continue on this regimen. From a cardiac perspective she is stable for discharge home on current medication regimen. She can follow-up with Dr. Edwards as an outpatient. Nurse Practitioner note has been reviewed, I agree with a documented findings and plan of care. Patient was seen and examined.
[2017-09-06 11:46] LABS: Calcium 7.9 mg/dL (8.4-10.2); Potassium 3.5 mmol/L (3.5-5.1)
[2017-09-06 12:06] LABS: Anisocytosis Slight; CH 27.8; CHCM 28.2; HCT 32.7 % (34.0-46.0); HDW 2.44; HGB 9.6 gm/dL (11.4-16.0); Hypochromasia Marked; MCH 28.9 pg (25.0-35.0); MCHC 29.3 g/dL (31.0-37.0); MCV 98.8 fL (80.0-100.0); Macrocytosis Slight; Mean Platelet Volume 9.6; RBC 3.31 m/uL (3.80-5.40); RDW 16.7 % (11.5-15.5); WBC (Perox) 28.37
[2017-09-06 12:11] LABS: WBC 26.3 k/uL (3.8-10.6)
[2017-09-06 12:43] LABS: Add Differential Manual Differential
[2017-09-06 12:45] LABS: Band Neutrophils % 4 %; Nucleated Red Blood Cells 0 /100 WBC (0-0); Total Cells Counted 200
[2017-09-06 12:46] LABS: Toxic Vacuolation Present
[2017-09-06] MEDS: CYANOCOBALAMIN 500 MCG TAB PO SCH (12:53)
[2017-09-06] MEDS: METHIMAZOLE 5 MG TAB PO SCH ×3 (12:53→21:30)
[2017-09-06] MEDS: MAGNESIUM OXIDE 400 MG TAB PO SCH (12:53)
[2017-09-06] MEDS: CALCITRIOL 0.25 MCG CAP PO SCH (12:54)
[2017-09-06] MEDS: CALCIUM CARB-MAG CARB-FOLIC 1 EACH TAB PO SCH (12:54)
[2017-09-06] MEDS: CHOLECALCIFEROL 1,000 UNIT TAB PO SCH (12:54)
--- NOTE | 2017-09-06 16:42 | PN ---
PROGRESS NOTE DATE OF SERVICE: 09/06/2017 This 81-year-old woman who was admitted with acute peritonitis secondary to CAPD catheter with sepsis had a catheter taken out but however the microbiology showed bacteria is uniformis. Dr. See is recommending combination of Flagyl and as well as Unasyn. The first culture was still showing anaerobic gram-positive cocci at this time. The patient also had possibly atrial fibrillation or multiple PACs. The patient also had nonspecific ventricular tachycardia, also features of hyperthyroidism. Patient being closely monitored. Patient also has generalized gait dysfunction. ECF rehab is also pending at this time. PAST MEDICAL HISTORY: Reviewed. REVIEW OF SYSTEMS: Cardio system: As mentioned earlier. Respiratory: As mentioned earlier. GI: No nausea or vomiting. : No dysuria or retention. Nervous system: No numbness, weakness. CURRENT MEDICATIONS: Reviewed and include: 1. Tylenol 500 mg q.4h p.r.n. 2. [place] 5 mg q.6 p.r.n. 3. Unasyn 3 g p.o. daily. 4. Magnavite daily. 5. Rocaltrol. 6. Vitamin D3 2000 daily. 7. Vitamin B12 500 mg daily. 9. Cosopt. 10.Flonase. 11.Lasix. 12.Dilaudid. 14.Magnesium oxide. 15.Reglan. 16.Lopressor. 17.Flagyl. 18.Zofran. 19.Restoril. PHYSICAL EXAM: Patient is alert, oriented times two. Pulse is 78, blood pressure 139/91, respirations 17, temperature 98.2, pulse ox 98% on room air. HEENT: Conjunctivae normal. Oral mucosa moist. Neck is no jugular venous distention. No lymph node enlargement. Cardiovascular: S1, S2 muffled. No S3, no S4. Respiratory: Breath sounds diminished in the bases. A few scattered rhonchi. No crackles. ABDOMEN: Soft, obese, mild diffuse discomfort to palpation. No guarding. No rigidity. No mass palpable. Legs bilateral leg edema. Nervous system: Higher functions as mentioned earlier. Moves all four limbs. No focal deficits. Lymphatics: No lymph nodes palpable in the neck, axillae or groin. Skin no ulcer, rash or bleeding. LAB STUDIES: WBC 26.3, hemoglobin 9.6, sodium 139, potassium 3.5, troponin 0.110, 2D echo report is pending. ASSESSMENT: 1. Acute peritonitis secondary to CAPD catheter, sepsis, present on admission, due to bacteroides. 2. Nausea, vomiting and diarrhea, possible acute gastritis. 3. Increased WBC. 4. Non-sustained ventricular tachycardia. 5. Multiple PVCs, atrial fibrillation unlikely per Cardiology. 6. Hyperthyroidism new onset. 7. History of chronic obstructive pulmonary disease and chronic hypoxic respiratory failure. 8. History of recent bacterial peritonitis. 9. History of hyponatremia. 10.Hypokalemia. 11.Hypertension. RECOMMENDATION AND DISCUSSION: Recommend to continue current medications, continue management and continue symptomatic treatment. This 81-year-old woman who presented with multiple complex medical issues has taken a turn for the slight worsening today. The white count is significantly elevated compared to yesterday. We will hold off the discharge. Continue with antibiotics. The patient also had bacteroides grown from the culture. I would recommend continue the combination of antibiotics as per Dr. See. Discussed with Dr. See over the phone at length. Otherwise I would also recommend starting methimazole 10 mg t.i.d. to control hyperthyroidism, exact etiology unknown at this time. Patient recommended outpatient followup with implementation manager in [facility]. Currently we do not have any endocrine coverage. Otherwise I would recommended continue repeat labs will be ordered and cultures as mentioned earlier. We will continue to follow up and cultures from outside is also noted. Further recommendations to follow. As far as the irregular cardiac rhythm is concerned, the patient did have wide-complex QRS complexes but Dr. Edwards thinks the patient probably had multifocal atrial tachycardia rather than atrial fibrillation. The patient is not on any anticoagulation currently. Continue the rest of the medications. Monitor closely. Guarded prognosis. Ensure oxygenation. Guarded prognosis because of multiple complex medical issues. Discussed with the patient at length. Understands and agrees. Further recommendations to follow. MMODL / IJN: [id number] / JOHN
--- NOTE | 2017-09-06 17:29 | PN ---
PROGRESS NOTE Patient is seen for followup for end-stage renal disease. It appears that the patient had an episode of tachycardia. She was evaluated and from cardiology standpoint, Lopressor was increased. The patient currently is sitting up in a bedside chair. She is in sinus rhythm with PACs. She had just had dialysis with 2 L of ultrafiltration and she feels quite tired. EXAMINATION: Blood pressure was 130/91, heart rate 78 per minute. Patient is afebrile. HEART: S1, S2. LUNGS: Bilateral breath sounds are heard. ABDOMEN: Soft, nontender. Lower extremities show no evidence of edema. [employer]ENTICE: Grossly intact. LABS: Show sodium 129, potassium 3.5. White cell count was up to 26.3. ASSESSMENT: 1. End-stage renal disease, currently on hemodialysis. We will dialyze her again on Saturday. 2. Continuous peritoneal dialysis peritonitis status post peritoneal dialysis catheter removal. Culture over here grew Bacteroides. The patient will be maintained on oral Flagyl upon discharge. She is being followed by Infectious Disease. 3. Episode of tachycardia with current monitor showing sinus rhythm with premature atrial contractions this morning. The patient is status post evaluation by Cardiology and her Lopressor was increased. 4. Abnormal thyroid function tests with T4 high at 3.8 and low TSH suggesting some degree of hyperthyroidism. Endocrinology consult is pending. PLAN: Hemodialysis on Saturday. Continue antibiotics per ID. Await Endo input. MMODL / IJN: [id number] /
[2017-09-06] MEDS ORDERED: WARFARIN 5 MG TAB PO SCH (18:00)
[2017-09-06] MEDS: PANTOPRAZOLE 40 MG TABLET PO SCH (18:05)
[2017-09-06] MEDS: LATANOPROST 0.005% OPHTH DROPS 2.5 ML BTL LEFT EYE SCH (21:29)
--- NOTE | 2017-09-06 23:27 | PN ---
PROGRESS NOTE DATE OF SERVICE: 09/06/2017 REASON FOR FOLLOWUP: Secondary peritonitis, PD catheter associated with bacteremia. INTERVAL HISTORY: The patient is afebrile. The patient did went to atrial fibrillation with diarrhea for which surgery was put on hold. This morning the patient has been breathing comfortably. No chest pain. No palpitation. Abdominal pain has improved. Did have a very small BM which was loose but no significant diarrhea. PHYSICAL EXAMINATION: Blood pressure 130/91 with a pulse of 78, temperature 99.2, she is 96% on room air. General description is an elderly female up in the chair in no distress. Respiratory system unlabored breathing, clear to auscultation. Heart S1, S2. Regular rate and rhythm. ABDOMEN: Soft, no tenderness, no rigidity. EXTREMITIES: No edema of feet. LABS: Hemoglobin 9.3, white count is 6.3, BUN of 33, creatinine 4.43. DIAGNOSTIC IMPRESSION AND PLAN: Patient with secondary peritonitis from PD catheter associated. Peritoneal catheter has been discontinued. Culture showed Bacteroides species. repeat culture was requested. The patient is currently on Unasyn and Flagyl. However the patient did have jump in white count without any worsening of her condition. She will be monitored closely and adjusting antibiotic further. Continue supportive care. MMODL / IJN: [id number] / JOHN
[2017-09-07] MEDS: METOCLOPRAMIDE 5 MG/ML 2 ML VIAL IVP SCH ×4 (05:37→23:40)
[2017-09-07 07:29] LABS: Anisocytosis Slight; Basophils # (A) 0.1 k/uL (0-0.2); Basophils % (A) 0 %; CH 28.1; CHCM 29.6; Eosinophils # (A) 0.1 k/uL (0-0.7); Eosinophils % (A) 0 %; HCT 31.5 % (34.0-46.0); HDW 2.62; HGB 9.7 gm/dL (11.4-16.0); Hypochromasia Marked; Luc # (Auto) 0.44; Luc % (Auto) 1; Lymphocytes # (A) 2.5 k/uL (1.0-4.8); Lymphocytes % (A) 7 %; MCH 29.5 pg (25.0-35.0); MCHC 30.9 g/dL (31.0-37.0); MCV 95.5 fL (80.0-100.0); Mean Platelet Volume 7.8; Monocytes # (A) 1.9 k/uL (0-1.0); Monocytes % (A) 6 %; Neutrophils # (A) 29.2 k/uL (1.3-7.7); Neutrophils % (A) 86 %; RBC 3.29 m/uL (3.80-5.40); RDW 17.2 % (11.5-15.5); WBC (Perox) 36.22
[2017-09-07 07:36] LABS: WBC 34.2 k/uL (3.8-10.6)
[2017-09-07] MEDS: AMPICILLIN-SULBACTAM 3 GM in SODIUM CHLORIDE 0.9% 100 ML IVPB SCH (07:38)
[2017-09-07] MEDS: PANTOPRAZOLE 40 MG TABLET PO SCH ×2 (07:41→16:17)
[2017-09-07] MEDS: FLUTICASONE 50MCG/SPRAY NASAL 16GM EA NOSTRIL SCH (07:42)
[2017-09-07] MEDS: DORZOLAMIDE-TIMOLOL 2-0.5% DROPS 10 ML BTL LEFT EYE SCH ×2 (07:42→21:50)
[2017-09-07] MEDS: FUROSEMIDE 80 MG TAB PO SCH ×2 (07:42→16:16)
[2017-09-07] MEDS: VIT A,C & E-LUTEIN-MINERALS 1 EACH TAB PO SCH ×2 (07:42→16:16)
[2017-09-07] MEDS: prednisoLONE ACETATE 1% OPHTH DROPS 5 ML BTL RIGHT EYE SCH ×2 (07:43→21:51)
[2017-09-07] MEDS: KETOROLAC 0.5% OPHTH DROPS 5 ML BTL RIGHT EYE SCH ×2 (07:43→21:50)
[2017-09-07 07:51] LABS: Potassium 3.6 mmol/L (3.5-5.1)
[2017-09-07] MEDS: LACTULOSE 20 GM/30 ML CUP PO SCH ×2 (10:02→21:52)
[2017-09-07] MEDS: metroNIDAZOLE 500 MG TAB PO SCH ×3 (10:08→21:51)
[2017-09-07] MEDS: METHIMAZOLE 5 MG TAB PO SCH ×3 (10:09→21:51)
[2017-09-07] MEDS: METOPROLOL TARTRATE 25 MG TAB PO SCH ×2 (10:09→21:51)
[2017-09-07] MEDS: CALCIUM CARB-MAG CARB-FOLIC 1 EACH TAB PO SCH (13:01)
[2017-09-07] MEDS: MAGNESIUM OXIDE 400 MG TAB PO SCH (13:01)
[2017-09-07] MEDS: CHOLECALCIFEROL 1,000 UNIT TAB PO SCH (13:02)
[2017-09-07] MEDS: CYANOCOBALAMIN 500 MCG TAB PO SCH (13:02)
--- NOTE | 2017-09-07 13:16 | P.PN ---
Subjective Progress Note Date: 09/07/17 (nephrology) Principal diagnosis: ESRD lying in bed no acute distress had dialysis on Saturday. Episode of diarrhea better after stopping lactulose Objective - Vital Signs Vital signs: Vital Signs Temp 98.0 F 09/07/17 07:00 Pulse 71 09/07/17 07:00 Resp 18 09/07/17 08:00 BP 133/68 09/07/17 07:00 Pulse Ox 95 09/07/17 07:00 Intake & Output 09/06/17 09/07/17 09/07/17 18:59 06:59 18:59 Intake Total 240 240 Balance 240 240 Weight 71.3 kg Intake: Oral 240 240 Other: Voiding Method Bedside Commode Bedside Commode Bedside Commode # Bowel Movements 1 2 - Exam no pallor cyanosis jaundice Right jugular permacath Lungs clear to auscultation No edema - Labs CBC & Chem 7: 09/07/17 06:48 09/07/17 06:45 Labs: Abnormal Lab Results - Last 24 Hours (Table) 09/07/17 09/07/17 Range/Units 06:45 06:48 WBC 34.2 H* (3.8-10.6) k/uL RBC 3.29 L (3.80-5.40) m/uL Hgb 9.7 L (11.4-16.0) gm/dL Hct 31.5 L (34.0-46.0) % MCHC 30.9 L (31.0-37.0) g/dL RDW 17.2 H (11.5-15.5) % Neutrophils # 29.2 H (1.3-7.7) k/uL Monocytes # 1.9 H (0-1.0) k/uL Sodium 133 L (137-145) mmol/L BUN 20 H (7-17) mg/dL Creatinine 3.36 H (0.52-1.04) mg/dL Calcium 8.0 L (8.4-10.2) mg/dL Assessment and Plan Plan: impression: #1 end-stage renal disease currently on HD, switched from PD for peritonitis. #2 secondary bacterial peritonitis with bacteroids. #3anemia with CKD #4 ckd-mbd #5 hypertension with CKD Recommendations: #1 plan dialysis on Saturday. #2 antibiotics as per infectious disease #3 CK D medications.
[2017-09-07] MEDS: IOHEXOL 350 MG/ML 25 ML BOTTLE (ORAL USE) PO PRN ×2 (16:13→17:10)
--- NOTE | 2017-09-07 17:31 | PN ---
PROGRESS NOTE DATE OF SERVICE: 09/07/2017 This 81-year-old woman was admitted with acute peritonitis, also had elevated white count. At this time, patient remains on broad-spectrum IV antibiotics. Patient did not have any abdominal discomfort or chest pain, palpitations at this time. The patient is on hemodialysis at this time. The peritoneal catheter has been removed. The patient is also getting broad-spectrum IV antibiotic coverage, also. PAST MEDICAL HISTORY: Reviewed. REVIEW OF SYSTEMS: CARDIOVASCULAR: As mentioned earlier. RESPIRATORY: As mentioned earlier. GI: As mentioned earlier. : No dysuria. NERVOUS: No numbness or weakness. CURRENT MEDICATIONS: Reviewed, include: 1. Tylenol 500 mg q.4h p.r.n. 2. [place] 5 mg p.r.n. 3. Unasyn daily. 4. Rocaltrol. 5. Vitamin D3 2000 daily. 6. Vitamin B12 500 daily. 7. Ancef. 8. Cosopt. 9. Flonase. 10.Lasix. 11.Cefazolin. 12.Dilaudid. 13.Cephulac. 14.Xalatan. 15.Tapazole. 16.Reglan. 17.Lopressor. 18.Flagyl. 19.Narcan. 20.Protonix. 21.Restoril. PHYSICAL EXAM: Patient is alert and oriented x2. Pulse 71, blood pressure 133/68, respirations 18, temperature 98 degrees, pulse ox 94% room air. HEENT: Conjunctivae normal. Oral mucosa moist. NECK: No jugular venous distention. No carotid bruits. No lymph node enlargement. CARDIOVASCULAR SYSTEM: S1, S2 muffled. RESPIRATORY: Breath sounds diminished in the bases. A few scattered rhonchi. No crackles. ABDOMEN: Soft, obese and nontender. No mass palpable. LEGS: No edema. NERVOUS SYSTEM: Nonfocal. LABS: WBC 34.2, hemoglobin is 9.6. sodium 133. ASSESSMENT: 1. Acute peritonitis secondary to continuous ambulatory peritoneal dialysis catheter, urinary tract infection and sepsis present on admission due to Bacteroides. 2. Nausea, vomiting and diarrhea. Possible acute gastritis. 3. Elevated WBC, leukemoid reaction. 4. Nonsustained ventricular tachycardia. 5. Multifocal atrial premature contractions, atrial fibrillation unlikely per Cardiology. 6. Hyperthyroidism, new onset. 7. History of chronic obstructive pulmonary disease and chronic hypoxic respiratory failure. 8. History of recent bacterial peritonitis. 9. History hyponatremia. 10.Hypokalemia. 11.Hypertension. RECOMMENDATIONS AND DISCUSSION: Recommend to continue current management, continue symptomatic treatment. Otherwise, please refer to the detailed discussion previously. I would also recommend a CT scan of the abdomen and pelvis, chest also to rule out the possibility of any infectious foci at this time. Will order repeat cultures, continue the current antibiotics and closely monitor with Infectious Disease. Overall prognosis guarded because of multiple complex medical issues. Further recommendations to follow. MMODL / IJN: [id number] /
--- NOTE | 2017-09-07 18:14 | CT ---
EXAMINATION TYPE: CT ChestAbdPelvis wo con DATE OF EXAM: 09/07/2017 COMPARISON: August 30, 2017. HISTORY: No complaints of pain at time of scan. Elevated WBC per patient CT DLP: 874.1 mGycm. Automated Exposure Control for Dose Reduction was Utilized. TECHNIQUE: CT scan of the thorax, abdomen and pelvis is performed without IV contrast. FINDINGS: Calcified thyroid goiter is noted in the right upper mediastinum which causes mass effect and narrowi ng of the trachea. There are multiple mediastinal lymph nodes identified, the largest of which is to the right of the trachea measuring 1 cm. There is a small right-sided pleural effusion as well as a s mall left-sided pleural effusion. There is dependent atelectasis. No pneumothorax is identified. [place] thing motion artifact inhibits evaluation for small pulmonary lung nodule. Evaluation of the visceral organs of the abdomen is suboptimal without the use of intravenous contras t. A small perihepatic and perisplenic effusion is again noted although this has decreased in size si nce the previous study. Calcifications are identified in the gallbladder wall unchanged. The liver an d spleen are stable. The adrenal glands and kidneys are unchanged. The kidneys are atrophic. Previous ly identified peritoneal dialysis catheter is no longer seen. The pancreas is slightly atrophic. There is no free intraperitoneal air. There is a moderate mount of free intraperitoneal fluid. The ut erus is heavily calcified. There is diffuse diverticulosis noted in the descending and sigmoid colon. No definite acute diverticulitis is identified however this evaluation is suboptimal due to adjacent hardware from right hip arthroplasty. There is a fluid-filled ventral hernia noted just unchanged. The aorta demonstrates multiple atherosclerotic calcifications. There is mild levoconvex curvature of mid lumbar spine. Degenerative changes are noted. IMPRESSION: Free fluid is noted in the abdomen which is felt to be due to known history of peritoneal dialysis. There is diffuse diverticulosis. 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
[2017-09-07] MEDS: LATANOPROST 0.005% OPHTH DROPS 2.5 ML BTL LEFT EYE SCH (21:51)
[2017-09-08] MEDS: METOCLOPRAMIDE 5 MG/ML 2 ML VIAL IVP SCH ×4 (06:08→23:42)
[2017-09-08 07:05] LABS: Calcium 8.3 mg/dL (8.4-10.2); Potassium 3.5 mmol/L (3.5-5.1)
[2017-09-08 07:14] LABS: Anisocytosis Slight; Basophils # (A) 0.1 k/uL (0-0.2); Basophils % (A) 0 %; CH 28.1; CHCM 29.8; Eosinophils # (A) 0.2 k/uL (0-0.7); Eosinophils % (A) 1 %; HCT 30.5 % (34.0-46.0); HDW 2.64; HGB 9.2 gm/dL (11.4-16.0); Hypochromasia Marked; Luc # (Auto) 0.46; Luc % (Auto) 2; Lymphocytes # (A) 2.9 k/uL (1.0-4.8); Lymphocytes % (A) 9 %; MCH 28.7 pg (25.0-35.0); MCHC 30.3 g/dL (31.0-37.0); MCV 94.8 fL (80.0-100.0); Mean Platelet Volume 8.1; Monocytes # (A) 1.6 k/uL (0-1.0); Monocytes % (A) 5 %; Neutrophils # (A) 26.2 k/uL (1.3-7.7); Neutrophils % (A) 83 %; RBC 3.22 m/uL (3.80-5.40); RDW 17.4 % (11.5-15.5); WBC (Perox) 32.45
[2017-09-08 07:30] LABS: WBC 31.4 k/uL (3.8-10.6)
[2017-09-08] MEDS: VIT A,C & E-LUTEIN-MINERALS 1 EACH TAB PO SCH ×2 (09:18→15:43)
[2017-09-08] MEDS: PANTOPRAZOLE 40 MG TABLET PO SCH ×2 (09:18→15:42)
[2017-09-08] MEDS: ACETAMINOPHEN TAB 500 MG TAB PO PRN ×2 (09:18→15:41)
[2017-09-08 09:38] LABS: Manual Review Performed
[2017-09-08] MEDS: FLUTICASONE 50MCG/SPRAY NASAL 16GM EA NOSTRIL SCH (10:20)
[2017-09-08] MEDS: prednisoLONE ACETATE 1% OPHTH DROPS 5 ML BTL RIGHT EYE SCH ×2 (10:21→21:03)
[2017-09-08] MEDS: KETOROLAC 0.5% OPHTH DROPS 5 ML BTL RIGHT EYE SCH ×2 (10:23→21:03)
[2017-09-08] MEDS: DORZOLAMIDE-TIMOLOL 2-0.5% DROPS 10 ML BTL LEFT EYE SCH ×2 (10:23→21:02)
[2017-09-08] MEDS: METHIMAZOLE 5 MG TAB PO SCH ×3 (10:24→21:04)
[2017-09-08] MEDS: FUROSEMIDE 80 MG TAB PO SCH ×2 (10:25→15:43)
[2017-09-08] MEDS: METOPROLOL TARTRATE 25 MG TAB PO SCH ×2 (10:25→21:03)
[2017-09-08] MEDS: metroNIDAZOLE 500 MG TAB PO SCH ×3 (10:25→21:04)
[2017-09-08] MEDS: AMPICILLIN-SULBACTAM 3 GM in SODIUM CHLORIDE 0.9% 100 ML IVPB SCH (10:26)
--- NOTE | 2017-09-08 10:40 | P.PN ---
Subjective Progress Note Date: 09/08/17 Principal diagnosis: ESRD Lying in bed complaining of some abdominal discomfort. no nausea vomiting or diarrhea. Passing gas and bowel movements Objective - Vital Signs Vital signs: Vital Signs Temp 97.5 F L 09/08/17 08:31 Pulse 91 09/08/17 08:31 Resp 18 09/08/17 08:31 BP 173/76 09/08/17 08:31 Pulse Ox 97 09/08/17 08:31 Intake & Output 09/07/17 09/08/17 09/08/17 18:59 06:59 18:59 Intake Total 480 240 Output Total 1 Balance -1 480 240 Weight 71 kg Intake: Oral 480 240 Output: Urine/Stool Mix 1 Other: Voiding Method Bedside Commode Bedside Commode Bedside Commode # Voids 2 2 # Bowel Movements 2 1 - Exam No acute distress S1 S2 heard Lungs clear to auscultation Abdomen is Soft but didn't diminished bowel sounds No edema Jugular PermCath - Labs CBC & Chem 7: 09/08/17 06:22 09/08/17 06:22 Labs: Abnormal Lab Results - Last 24 Hours (Table) 09/08/17 09/08/17 Range/Units 06:22 06:22 WBC 31.4 H* (3.8-10.6) k/uL RBC 3.22 L (3.80-5.40) m/uL Hgb 9.2 L (11.4-16.0) gm/dL Hct 30.5 L (34.0-46.0) % MCHC 30.3 L (31.0-37.0) g/dL RDW 17.4 H (11.5-15.5) % Neutrophils # 26.2 H (1.3-7.7) k/uL Monocytes # 1.6 H (0-1.0) k/uL Sodium 128 L (137-145) mmol/L Chloride 97 L (98-107) mmol/L BUN 28 H (7-17) mg/dL Creatinine 4.61 H (0.52-1.04) mg/dL Calcium 8.3 L (8.4-10.2) mg/dL Microbiology - Last 24 Hours (Table) 09/06/17 14:26 Blood Culture - Preliminary Blood No Growth after 24 hours 09/06/17 13:41 Blood Culture - Preliminary Blood No Growth after 24 hours Assessment and Plan Plan: Impression: #1 end-stage renal disease on HD, switched from PD secondary to peritonitis. #2 secondary bacterial peritonitis with bacteroids infection. PD catheter is removed. #3 anemia with CKD #4 CKD with metabolic bone disease #5 hypertension with CKD #6 hypervolemic hyponatremia Recommendations: #1 plan dialysis tomorrow. #2 antibiotics per infectious disease. CT abdomen yesterday showed residual peritoneal fluid. #3 Add losartan for uncontrolled blood pressure.
[2017-09-08] MEDS: LACTULOSE 20 GM/30 ML CUP PO SCH ×2 (11:22→11:33)
[2017-09-08] MEDS: CALCIUM CARB-MAG CARB-FOLIC 1 EACH TAB PO SCH (13:11)
[2017-09-08] MEDS: CHOLECALCIFEROL 1,000 UNIT TAB PO SCH (13:11)
[2017-09-08] MEDS: CYANOCOBALAMIN 500 MCG TAB PO SCH (13:11)
[2017-09-08] MEDS: MAGNESIUM OXIDE 400 MG TAB PO SCH (13:11)
[2017-09-08] MEDS: LOSARTAN 50 MG TAB PO SCH (13:12)
[2017-09-08] MEDS: DARBEPOETIN ALFA 60 MCG/0.3 ML SYRINGE SQ SCH (15:41)
[2017-09-08] MEDS ORDERED: hydrALAZINE HCL 20 MG/ML 1 ML VIAL IVP STA (17:10)
--- NOTE | 2017-09-08 18:41 | PN ---
PROGRESS NOTE DATE OF SERVICE: 09/08/2017 INTERVAL HISTORY: This 81-year-old woman was admitted with acute peritonitis, is on antibiotics. Symptomatically, clinically patient is feeling better but white count is still elevated. Repeat CAT scan only showed some fluid collection. No fever. The patient is on broad-spectrum IV antibiotics. Dr. See and Nephrology following the patient closely. PAST MEDICAL HISTORY: Reviewed. PHYSICAL EXAM: Alert oriented x3. Pulse 91, blood pressure 173/76, respirations 18, temperature 97.5, pulse ox 97% on room air. HEENT conjunctivae normal. Neck: No jugular venous distention. Cardiovascular: S1, S2 muffled. Respirations: Breath sounds diminished at the bases. A few scattered rhonchi. ABDOMEN: Soft, obese, minimal discomfort on the left lower quadrant. Otherwise, no tenderness. No guarding. No rigidity. Bowel sounds present. Legs are no edema. Central nervous system: No focal deficits. LABORATORY DATA: WBC 13.2, hemoglobin 9.2, sodium 128. ASSESSMENT: 1. Acute peritonitis secondary to CAPD catheter with bacteroides and sepsis present on admission. 2. Nausea, vomiting, diarrhea possible acute gastritis. 3. Elevated WBC leukemoid reaction. 4. Nonsustained ventricular tachycardia history. 5. Multifocal PACs atrial fibrillation unlikely per Cardiology. 6. Hyperthyroidism new onset. 7. History of chronic obstructive pulmonary disease and chronic hypoxic respiratory failure. 8. History of recent bacterial peritonitis. RECOMMENDATIONS AND DISCUSSION: Recommend to continue current medications, management and continue symptomatic treatment. Continue with antibiotics. Closely monitor. Discussed with Dr. See to reevaluate antibiotics. Guarded prognosis. Further recommendations to follow. MMODL / IJN: [id number] /
[2017-09-08] MEDS: NYSTATIN 100,000 UNIT/ML SUSP 500,000 UNIT/5 ML CUP PO SCH (21:02)
[2017-09-08] MEDS: FLUCONAZOLE 100 MG TAB PO SCH (21:02)
[2017-09-08] MEDS: LATANOPROST 0.005% OPHTH DROPS 2.5 ML BTL LEFT EYE SCH (21:03)
[2017-09-09] MEDS: METOCLOPRAMIDE 5 MG/ML 2 ML VIAL IVP SCH ×3 (05:11→18:15)
--- NOTE | 2017-09-09 06:53 | PN ---
PROGRESS NOTE DATE OF SERVICE: 09/08/2017 REASON FOR FOLLOWUP: Secondary peritonitis and worsening white count. INTERVAL HISTORY: The patient is afebrile. She is breathing comfortably. Denies any chest pain. No shortness of breath. No cough. No abdominal pain. The patient did have multiple loose stools today. EXAMINATION: Her blood pressure is 142/56 with a pulse of 85, temperature 97.8. She is 95% on room air. General description is an elderly female up in the bed in no distress. RESPIRATORY SYSTEM: Unlabored breathing. Clear to auscultation. HEART: S1, S2. Regular rate and rhythm. ABDOMEN: Soft, no tenderness. Examination of oral cavity showing evidence of thrush. LABS: Hemoglobin is 9.3 with white count of 31.4, BUN of 28, creatinine 4.61. DIAGNOSTIC IMPRESSION AND PLAN: Patient with PD catheter associated peritonitis. Culture has been positive for Bacteroides species. Now the patient with worsening of white count. She did have a CT abdominal and pelvis suggestive no clear clinical focus of infection. She did have evidence of thrush and diarrhea. This could be contributing to her elevated white count. Stool for C diff finalized was negative. PCR will be requested. Nystatin swish and swallow and Diflucan will be added and repeat a CBC tomorrow. Stool for C diff will also be considered. The stool for C difficile has been negative. However, we will request a PCR and Diflucan nystatin swish and swallow and repeat CBC tomorrow. Continue supportive care. MMODL / IJN: [id number] /
[2017-09-09 08:31] LABS: Calcium 8.2 mg/dL (8.4-10.2); Potassium 4.5 mmol/L (3.5-5.1)
[2017-09-09 08:35] LABS: Anisocytosis Slight; CH 28.4; HCT 31.9 % (34.0-46.0); HDW 2.58; HGB 9.4 gm/dL (11.4-16.0); Hypochromasia Marked; MCH 28.2 pg (25.0-35.0); MCHC 29.6 g/dL (31.0-37.0); Macrocytosis Slight; Mean Platelet Volume 8.7; RBC 3.35 m/uL (3.80-5.40); RDW 18.1 % (11.5-15.5); WBC (Perox) 41.07
[2017-09-09 08:44] LABS: WBC 41.8 k/uL (3.8-10.6)
[2017-09-09] MEDS: DORZOLAMIDE-TIMOLOL 2-0.5% DROPS 10 ML BTL LEFT EYE SCH ×2 (08:58→22:30)
[2017-09-09] MEDS: PANTOPRAZOLE 40 MG TABLET PO SCH ×2 (08:58→18:23)
[2017-09-09] MEDS: FUROSEMIDE 80 MG TAB PO SCH ×2 (08:59→18:20)
[2017-09-09] MEDS: FLUTICASONE 50MCG/SPRAY NASAL 16GM EA NOSTRIL SCH (08:59)
[2017-09-09] MEDS: KETOROLAC 0.5% OPHTH DROPS 5 ML BTL RIGHT EYE SCH ×2 (08:59→22:30)
[2017-09-09] MEDS: FLUCONAZOLE 100 MG TAB PO SCH (08:59)
[2017-09-09] MEDS: LACTULOSE 20 GM/30 ML CUP PO SCH (09:00)
[2017-09-09] MEDS: METHIMAZOLE 5 MG TAB PO SCH ×3 (09:00→22:32)
[2017-09-09] MEDS: LOSARTAN 50 MG TAB PO SCH (09:00)
[2017-09-09] MEDS: METOPROLOL TARTRATE 25 MG TAB PO SCH ×2 (09:00→22:33)
[2017-09-09] MEDS: prednisoLONE ACETATE 1% OPHTH DROPS 5 ML BTL RIGHT EYE SCH ×2 (09:01→22:31)
[2017-09-09] MEDS: NYSTATIN 100,000 UNIT/ML SUSP 500,000 UNIT/5 ML CUP PO SCH ×4 (09:01→22:32)
[2017-09-09] MEDS: metroNIDAZOLE 500 MG TAB PO SCH ×3 (09:01→22:32)
[2017-09-09] MEDS: VIT A,C & E-LUTEIN-MINERALS 1 EACH TAB PO SCH ×2 (09:04→18:24)
[2017-09-09] MEDS: AMPICILLIN-SULBACTAM 3 GM in SODIUM CHLORIDE 0.9% 100 ML IVPB SCH (09:15)
[2017-09-09 09:36] LABS: Add Differential Manual Differential
[2017-09-09 09:37] LABS: Band Neutrophils % 12 %; Manual Review Performed; Nucleated Red Blood Cells 0 /100 WBC (0-0); Total Cells Counted 100; Toxic Granulation Present
[2017-09-09 09:38] LABS: Large Platelets Present
--- NOTE | 2017-09-09 12:36 | PN ---
PROGRESS NOTE DATE OF SERVICE: 09/09/2017. This 81-year-old woman was admitted with acute peritonitis, also on antibiotics. The patient also had elevated high white count. Patient also had diarrhea. The patient is on Unasyn and Dr. See is concerned about C diff colitis. Patient is started on p.o. vancomycin, also. PAST MEDICAL HISTORY: Reviewed. REVIEW OF SYSTEMS: CARDIOVASCULAR: No angina, no palpitation. RESPIRATORY: As mentioned earlier. GI: As mentioned earlier. : As mentioned earlier. NERVOUS SYSTEM: No numbness or weakness. CURRENT MEDICATIONS: Reviewed and include Tylenol, [place], Unasyn, vitamin D3, vitamine B12, Ancef, Cosopt, Diflucan, Lasix, Cephulac, magnesium oxide, Reglan, Flagyl. PHYSICAL EXAM: Patient is alert and oriented x3. Pulse is 71, blood pressure 143/76, respirations 16, temperature 98.4, pulse ox 94% room air. HEENT: Conjunctivae normal. Oral mucosa moist. Neck is no jugular venous distention, no lymph enlargement. CARDIOVASCULAR SYSTEM: S1, S2, muffled. RESPIRATORY: Breath sounds diminished at the bases, a few scattered rhonchi, no crackles. ABDOMEN: Soft, obese, minimal discomfort, no guarding, no rigidity. No mass palpable. LEGS: No edema, no swelling. NERVOUS SYSTEM: No focal deficits. LABS: At this time shows WBC 41.2, hemoglobin is 9.4. Creatinine 5.5, sodium 127. ASSESSMENT: 1. Acute peritonitis secondary to CAPD catheter with Bacteroides and sepsis present on admission. 2. Elevated WBC possible leukemoid reaction. 3. Nausea, vomiting, and diarrhea, possible acute gastritis. 4. Nonsustained ventricular tachycardia history. 5. Multifocal premature atrial contractions and atrial fibrillation unlikely per Cardiology. 6. Hyperthyroidism, new onset. 7. History of chronic obstructive pulmonary disease and chronic hypoxic respiratory failure. 8. History of recent bacterial peritonitis. RECOMMENDATION: Recommend to continue current management and symptomatic treatment, otherwise continue with treatment of C diff colitis and Dr. See is going to evaluate the patient and if the C. diff. is negative, might consider IV Zosyn; otherwise, continue to monitor the rest of the medications. Prognosis guarded because of multiple complex medical issues. Some improvement in this patient. Guarded prognosis. Further recommendations to follow. MMODL / IJN: [id number] /
[2017-09-09] MEDS: CALCIUM CARB-MAG CARB-FOLIC 1 EACH TAB PO SCH (13:38)
[2017-09-09] MEDS: CALCITRIOL 0.25 MCG CAP PO SCH (13:38)
[2017-09-09] MEDS: VANCOMYCIN ORAL SOLUTION 250 MG/5 ML BOTTLE PO SCH ×2 (13:46→18:24)
[2017-09-09 14:48] VITALS: BMI 29.0
--- NOTE | 2017-09-09 15:12 | PN ---
PROGRESS NOTE Patient is seen for followup for end-stage renal disease. This morning she is lying in bed. She appears weak and lethargic. Patient is not complaining of any specific symptoms, but just states that she does not feel good. She is cold because of the air conditioning in the room. PHYSICAL EXAMINATION: Blood pressure is 143/65, heart rate 71 per minute. She is afebrile. Examination shows trace bilateral lower extremity edema. Lungs are clear. Abdomen is soft, nontender. LABS: Sodium of 127, potassium 4.5, hemoglobin at 9.4, white cell count up to 41.8. C diff toxin is negative. Repeat blood cultures remain negative. CAT scan was nonspecific. ASSESSMENT: 1. End-stage renal disease, on hemodialysis on a Saturday, Saturday, Saturday schedule. Patient will be dialyzed today. Goal UF of about just 1 to 1.5 L. 2. Chronic obstructive pulmonary disease peritonitis, status post PD catheter removal. 3. Persistently elevated white count, being followed by Infectious Disease. No other source of infection identified. 4. Anemia of chronic disease maintained on Aranesp. 5. Chronic kidney disease bone mineral disorder, currently maintained on calcitriol, which we can continue. PLAN: Hemodialysis today. Repeat CBC in a.m. Follow with ID. MMODL / IJN: [id number] /
[2017-09-09] MEDS: CYANOCOBALAMIN 500 MCG TAB PO SCH (18:13)
[2017-09-09] MEDS: CHOLECALCIFEROL 1,000 UNIT TAB PO SCH (18:13)
[2017-09-09] MEDS: MAGNESIUM OXIDE 400 MG TAB PO SCH (18:14)
[2017-09-09] MEDS: LATANOPROST 0.005% OPHTH DROPS 2.5 ML BTL LEFT EYE SCH (22:31)
[2017-09-10] MEDS: METOCLOPRAMIDE 5 MG/ML 2 ML VIAL IVP SCH ×4 (00:08→16:16)
[2017-09-10] MEDS: VANCOMYCIN ORAL SOLUTION 250 MG/5 ML BOTTLE PO SCH ×3 (00:15→12:17)
[2017-09-10] MEDS: CHERRY FLAVOR 60 ML BOTTLE PO PRN ×2 (00:15→12:09)
--- NOTE | 2017-09-10 05:54 | PN ---
PROGRESS NOTE DATE OF SERVICE: 09/09/2017 REASON FOR FOLLOWUP: 1. Secondary peritonitis. 2. Oral thrush. 3. Persistent elevated white count. INTERVAL HISTORY: The patient is afebrile. She is hemodynamically stable. Denies significant chest pain or shortness of breath or cough. She was having diarrhea last night and none since morning. PHYSICAL EXAMINATION: On examination, blood pressure 124/61 with a pulse of 80, temperature 98.2. She is 97% on room air. General description is an elderly female, lying in bed, in no distress. HEENT EXAMINATION: Oral mucous membrane is dry. LUNGS: Unlabored breathing. Clear to auscultation. HEART: S1, S2. Regular rate and rhythm. ABDOMEN: Soft, no tenderness. LABS: Hemoglobin 9.4, white count 41.8. DIAGNOSTIC IMPRESSION AND PLAN: Patient with secondary peritonitis from bacteroides and anaerobic gram-positive cocci, the ID which is still pending. The patient did have persistently elevated white count and was having diarrhea. Culture for Clostridium difficile was requested, unfortunately was not sent. Vancomycin p.o. will be added and see response to the same. Repeat the CBC tomorrow. Blood cultures repeat negative so far. Plan of care discussed with the attending physician. MMODL / IJN: [id number] / JOHN
[2017-09-10] MEDS: ACETAMINOPHEN TAB 500 MG TAB PO PRN ×2 (06:37→21:39)
[2017-09-10 07:48] LABS: Anisocytosis Slight; CH 28.3; CHCM 29.6; HCT 29.9 % (34.0-46.0); HDW 2.64; HGB 9.3 gm/dL (11.4-16.0); Hypochromasia Marked; MCH 29.9 pg (25.0-35.0); MCHC 31.1 g/dL (31.0-37.0); MCV 96.2 fL (80.0-100.0); Macrocytosis Slight; Mean Platelet Volume 8.5; RBC 3.11 m/uL (3.80-5.40); RDW 18.2 % (11.5-15.5); WBC (Perox) 42.05
[2017-09-10 07:53] LABS: Calcium 8.3 mg/dL (8.4-10.2); Potassium 4.1 mmol/L (3.5-5.1)
[2017-09-10 08:16] LABS: WBC 39.7 k/uL (3.8-10.6)
[2017-09-10 08:49] LABS: Add Differential Manual Differential
[2017-09-10 08:55] LABS: Band Neutrophils % 2 %; Nucleated Red Blood Cells 0 /100 WBC (0-0); Total Cells Counted 200
[2017-09-10 08:56] LABS: Manual Review Performed
[2017-09-10] MEDS: PANTOPRAZOLE 40 MG TABLET PO SCH ×2 (10:00→16:11)
[2017-09-10] MEDS: VIT A,C & E-LUTEIN-MINERALS 1 EACH TAB PO SCH ×2 (10:01→16:10)
[2017-09-10] MEDS: FLUTICASONE 50MCG/SPRAY NASAL 16GM EA NOSTRIL SCH (10:02)
[2017-09-10] MEDS: FUROSEMIDE 80 MG TAB PO SCH ×2 (10:02→16:10)
[2017-09-10] MEDS: FLUCONAZOLE 100 MG TAB PO SCH (10:02)
[2017-09-10] MEDS: metroNIDAZOLE 500 MG TAB PO SCH ×3 (10:03→21:23)
[2017-09-10] MEDS: METOPROLOL TARTRATE 25 MG TAB PO SCH ×2 (10:03→21:41)
[2017-09-10] MEDS: METHIMAZOLE 5 MG TAB PO SCH ×3 (10:03→21:24)
[2017-09-10] MEDS: LOSARTAN 50 MG TAB PO SCH (10:03)
[2017-09-10] MEDS: NYSTATIN 100,000 UNIT/ML SUSP 500,000 UNIT/5 ML CUP PO SCH ×4 (10:04→21:23)
[2017-09-10] MEDS: AMPICILLIN-SULBACTAM 3 GM in SODIUM CHLORIDE 0.9% 100 ML IVPB SCH ×2 (10:05→12:08)
[2017-09-10] MEDS: KETOROLAC 0.5% OPHTH DROPS 5 ML BTL RIGHT EYE SCH ×2 (10:30→21:25)
[2017-09-10] MEDS: DORZOLAMIDE-TIMOLOL 2-0.5% DROPS 10 ML BTL LEFT EYE SCH ×2 (10:30→21:24)
[2017-09-10] MEDS: prednisoLONE ACETATE 1% OPHTH DROPS 5 ML BTL RIGHT EYE SCH ×2 (10:31→21:24)
--- NOTE | 2017-09-10 11:33 | P.PN ---
Subjective 81-year-old admitted with acute peritonitis and patient's is clinically doing well but patient had diarrhea yesterday because of which C. diff was opted which was negative. Patient was given started on oral vancomycin patient is presently on Unasyn patient's blood cultures were positive for Bacteroides uniform S and anaerobic gram-positive cocci. Patient is clinically to go to doing well ready to be discharged except for highly elevated white blood cell count was started coming down, infectious disease is recommending one more day of monitoring of the trend down patient probably can be discharged home tomorrow Constitutional: Denied any fatigue denied any fever. Cardio vascular: denied any chest pain, palpitations Gastrointestinal denied any nausea vomiting Pulmonary: Denied any shortness of breath cough Neurologic denied any new focal deficits Objective - Vital Signs Vital signs: Vital Signs Temp 97.5 F L 09/10/17 07:00 Pulse 75 09/10/17 08:00 Resp 17 09/10/17 08:00 BP 111/53 09/10/17 07:00 Pulse Ox 97 09/10/17 07:00 Intake & Output 09/09/17 09/10/17 09/10/17 18:59 06:59 18:59 Intake Total 237 100 Output Total 2500 Balance 237 -2400 Weight 71.9 kg 72.1 kg 73 kg Intake: Oral 237 100 Output: Other 2500 Other: Voiding Method Bedside Commode Bedside Commode Bedside Commode # Voids 1 1 - Labs CBC & Chem 7: 09/10/17 07:10 09/10/17 07:10 Labs: Abnormal Lab Results - Last 24 Hours (Table) 09/10/17 09/10/17 Range/Units 07:10 07:10 WBC 39.7 H* (3.8-10.6) k/uL RBC 3.11 L (3.80-5.40) m/uL Hgb 9.3 L (11.4-16.0) gm/dL Hct 29.9 L (34.0-46.0) % RDW 18.2 H (11.5-15.5) % Neutrophils # (Manual) 36.50 H (1.3-7.7) k/uL Monocytes # (Manual) 1.59 H (0-1.0) k/uL Sodium 132 L (137-145) mmol/L BUN 25 H (7-17) mg/dL Creatinine 3.77 H (0.52-1.04) mg/dL Glucose 117 H (74-99) mg/dL Calcium 8.3 L (8.4-10.2) mg/dL Microbiology - Last 24 Hours (Table) 09/07/17 14:58 Blood Culture - Preliminary Blood No Growth after 48 hours 09/07/17 14:41 Blood Culture - Preliminary Blood No Growth after 48 hours 09/06/17 14:26 Blood Culture - Preliminary Blood No Growth after 72 hours 09/06/17 13:41 Blood Culture - Preliminary Blood No Growth after 72 hours Assessment and Plan Plan: #1 sepsis secondary to acute bacterial peritonitis and CAPD catheter with the above-mentioned organisms patient is on Unasyn which will be continued. Next and #2 #2 end-stage renal disease, dialysis dependent. #3 highly elevated at the previous account secondary to leukemoid reaction most probably, if she continues to have persistent leukocytosis which is lymphocytic predominant patient may need oncological evaluation although didn't see any blast cells on the peripheral smear. #4 patient was evaluated for atrial fibrillation by cardiology although patient appears to have PACs area #5 hypothyroidism new-onset for which patient is on methimazole which will be continued #6 chronic obstructive pulmonary disease and chronic hypercapnic respiratory failure not in acute exacerbation
[2017-09-10] MEDS: CALCIUM CARB-MAG CARB-FOLIC 1 EACH TAB PO SCH (12:08)
[2017-09-10] MEDS: MAGNESIUM OXIDE 400 MG TAB PO SCH (12:08)
[2017-09-10] MEDS: CHOLECALCIFEROL 1,000 UNIT TAB PO SCH (12:08)
[2017-09-10] MEDS: CYANOCOBALAMIN 500 MCG TAB PO SCH (12:08)
[2017-09-10] MEDS ORDERED: VANCOMYCIN IV PER PHARMACY 1 EACH MISC MISCELLANE PRN (13:29)
[2017-09-10] MEDS ORDERED: VANCOMYCIN 1,250 MG in SODIUM CHLORIDE 0.9% 250 ML IVPB ONE (14:00)
--- NOTE | 2017-09-10 19:22 | PN ---
PROGRESS NOTE Patient is seen for followup for end-stage renal disease. This morning she appears slightly better than yesterday. No specific complaints again today. Patient has not been eating much. She has not had any fever spikes. No diarrhea or abdominal pain. PHYSICAL EXAMINATION: Blood pressure is 134/63, heart rate 65 per minute. She is afebrile. EXAMINATION OF THE HEART: S1, S2. EXAMINATION OF LUNGS: Bilateral breath sounds are heard. ABDOMEN: Soft, non-tender. Examination of lower extremities shows no evidence of edema. LABS: Sodium 132. White cell count is down to 39.7 from 41.8. ASSESSMENT: 1. End-stage renal disease, on hemodialysis currently on a Saturday, Saturday, Saturday schedule via [facility]. 2. CAPD peritonitis, status post removal of PD catheter. Cultures grew Bacteroides uniformis. Patient is maintained on Flagyl. She has received oral vancomycin as well. 3. Low TSH suggestive of hyperthyroidism, currently started on methimazole. T4 was elevated at 3.8. PLAN: Hemodialysis in a.m. Continue therapy. Patient will likely need to go to rehab. MMODL / IJN: [id number] /
[2017-09-10] MEDS: LATANOPROST 0.005% OPHTH DROPS 2.5 ML BTL LEFT EYE SCH (21:25)
--- NOTE | 2017-09-10 21:58 | PN ---
PROGRESS NOTE DATE OF SERVICE: 09/10/2017 REASON FOR FOLLOWUP: Secondary peritonitis and oral thrush. INTERVAL HISTORY: The patient is afebrile. She has been feeling better. Breathing comfortably. No significant chest pain. No shortness with cough. Abdominal pain has improved. Did not have any further diarrhea or bowel movement. EXAMINATION: Blood pressure 134/63 with a pulse of 55, temperature 97.8. She is 96% on room air. General description is a middle aged female lying in bed, in no distress. HEENT examination oral thrush improved. LUNGS: Unlabored breathing. Clear to auscultation anteriorly. Heart S1, S2 regular rate and rhythm. Abdomen soft, no tenderness. LABS: Hemoglobin is 9.2, white count 29.7 with a BUN of 25, creatinine of 3.77. DIAGNOSTIC IMPRESSION AND PLAN: 1. Patient with a anaerobic gram-positive cocci peritonitis. The patient repeat blood culture has been negative. Despite on right antibiotics for this pathogen. The patient white count remains to be elevated. At this time we will discontinue the Unasyn and add vancomycin, pharmacy to dose IV. Repeat CBC tomorrow. 2. Oral thrush. Continue with nystatin swish and swallow. Discontinue the Diflucan. The patient did have overall improvement in white count with addition of Vanco. Patient able to continue with Vanco through dialysis for another 2 weeks with close outpatient followup. MMODL / IJN: [id number] / MTDD
[2017-09-11] MEDS: METOCLOPRAMIDE 5 MG/ML 2 ML VIAL IVP SCH ×3 (00:37→12:39)
[2017-09-11 08:27] LABS: Anisocytosis Slight; Basophils % (A) 0 %; CH 28.3; CHCM 29.2; Eosinophils # (A) 0.2 k/uL (0-0.7); Eosinophils % (A) 1 %; HCT 25.8 % (34.0-46.0); HDW 2.69; Hypochromasia Marked; Luc # (Auto) 0.42; Luc % (Auto) 2; Lymphocytes # (A) 1.4 k/uL (1.0-4.8); Lymphocytes % (A) 5 %; MCH 28.3 pg (25.0-35.0); MCV 97.4 fL (80.0-100.0); Macrocytosis Slight; Mean Platelet Volume 8.6; Monocytes # (A) 1.8 k/uL (0-1.0); Monocytes % (A) 6 %; Neutrophils # (A) 25.1 k/uL (1.3-7.7); Neutrophils % (A) 87 %; RBC 2.65 m/uL (3.80-5.40); RDW 18.4 % (11.5-15.5); WBC (Perox) 29.36
[2017-09-11 08:35] LABS: Calcium 7.5 mg/dL (8.4-10.2); Potassium 3.4 mmol/L (3.5-5.1)
[2017-09-11 08:47] LABS: HGB 7.5 gm/dL (11.4-16.0); WBC 28.9 k/uL (3.8-10.6)
--- NOTE | 2017-09-11 11:05 | PN ---
PROGRESS NOTE DATE OF SERVICE: 09/11/2017 REASON FOR FOLLOWUP: Secondary peritonitis and oral thrush. INTERVAL HISTORY: The patient is afebrile. She is breathing comfortably. Denies any chest pain, shortness of breath, cough. No abdominal pain. No nausea, vomiting, or any diarrhea. PHYSICAL EXAMINATION: Blood pressure is 118/59 with a pulse of 73, temperature of 98. She is 96% on room air. General description is an elderly female lying in bed, in no distress. RESPIRATORY SYSTEM: Unlabored breathing, clear to auscultation anteriorly. HEART: S1, S2. Regular rate and rhythm. ABDOMEN: Soft, no tenderness. LABS: Hemoglobin 7.5, white count 28.9 with a BUN of the 23, creatinine of 3.46. Peritoneal fluid culture with bacteroides and anaerobic gram positive cocci. Blood culture has been negative. DIAGNOSTIC IMPRESSION AND PLAN: 1. Patient with secondary peritonitis related to PD catheter that has been discontinued. Culture with Bacteroides and anaerobic gram-positive cocci. Patient did have elevated white count that finally responded to addition of vancomycin that will be continued for at 2 weeks on dialysis along with oral Flagyl. 2. Oral thrush. Nystatin swish and swallow to continue for about a week. She will follow up in the office in about 2 weeks time. Scripts were written for the patient. MMODL / IJN: [id number] /
[2017-09-11] MEDS: VIT A,C & E-LUTEIN-MINERALS 1 EACH TAB PO SCH (12:35)
[2017-09-11] MEDS: FLUTICASONE 50MCG/SPRAY NASAL 16GM EA NOSTRIL SCH (12:35)
[2017-09-11] MEDS: DORZOLAMIDE-TIMOLOL 2-0.5% DROPS 10 ML BTL LEFT EYE SCH (12:35)
[2017-09-11] MEDS: PANTOPRAZOLE 40 MG TABLET PO SCH (12:36)
[2017-09-11] MEDS: FUROSEMIDE 80 MG TAB PO SCH ×2 (12:36→15:54)
[2017-09-11] MEDS: KETOROLAC 0.5% OPHTH DROPS 5 ML BTL RIGHT EYE SCH (12:36)
[2017-09-11] MEDS: LOSARTAN 50 MG TAB PO SCH (12:36)
[2017-09-11] MEDS: METHIMAZOLE 5 MG TAB PO SCH (12:37)
[2017-09-11] MEDS: METOPROLOL TARTRATE 25 MG TAB PO SCH (12:37)
[2017-09-11] MEDS: prednisoLONE ACETATE 1% OPHTH DROPS 5 ML BTL RIGHT EYE SCH (12:38)
[2017-09-11] MEDS: NYSTATIN 100,000 UNIT/ML SUSP 500,000 UNIT/5 ML CUP PO SCH ×2 (12:38→12:40)
[2017-09-11] MEDS: CHOLECALCIFEROL 1,000 UNIT TAB PO SCH (12:39)
[2017-09-11] MEDS: CYANOCOBALAMIN 500 MCG TAB PO SCH (12:39)
[2017-09-11] MEDS: MAGNESIUM OXIDE 400 MG TAB PO SCH (12:39)
[2017-09-11] MEDS: CALCIUM CARB-MAG CARB-FOLIC 1 EACH TAB PO SCH (12:40)
[2017-09-11] MEDS: metroNIDAZOLE 500 MG TAB PO SCH (12:50)
[2017-09-11] MEDS ORDERED: VANCOMYCIN 1,250 MG in SODIUM CHLORIDE 0.9% 250 ML IVPB ONE (13:00)
[2017-09-11 13:59] VITALS: RESP 18
--- NOTE | 2017-09-11 14:37 | PN ---
PROGRESS NOTE Patient is seen for followup for end-stage renal disease. She is seen on dialysis, tolerating her treatment fairly well. Patient denies any significant complaints. She will be discharged today. Her white cell count has improved, although her hemoglobin is noted to be 7.5 g/dL. EXAMINATION: Blood pressure is 118/59, heart rate 73 per minute. Patient is afebrile. HEART: S1, S2. LUNGS: Decreased breath sounds at bases. ABDOMEN: Soft, nontender. Lower extremities show trace edema bilaterally. [employer]: Grossly intact. LABS: Show hemoglobin 7.5, white cell count 28.9. Sodium 133, potassium 3.4. ASSESSMENT: 1. End-stage renal disease, currently on hemodialysis, tolerating treatment fairly well. 2. Anemia with no active bleeding noted. Hemoglobin is down to 7.5. Patient is maintained on Aranesp. I will give her 1 unit of packed red blood cells prior to discharge. 3. Continuous ambulatory peritoneal dialysis peritonitis, status post removal of peritoneal dialysis catheter. Maintained on Flagyl, as fluid culture grew Bacteroides. 4. Elevated white count, slowly improving. Patient is being followed by Infectious Disease. No new source of infection has been identified. 5. Generalized debility. 6. Hyperthyroidism, maintained on methimazole. Patient will need to follow up with Endocrinology. PLAN: Hemodialysis today. Transfuse 1 unit packed RBCs prior to discharge. MMODL / IJN: [id number] /
--- NOTE | 2017-09-11 14:51 | P.DS ---
Providers Date of admission: 08/29/17 15:45 Expected date of discharge: 09/11/17 Attending physician: Rogerio Stein Consults: 08/29/17 15:46 Consult Physician Routine Consulting Provider: Della Andres Consult Reason/Comments: Renal failure CAPD, cloudy fluid Do you want consulting provider notified?: Yes 08/29/17 18:04 Consult Physician Routine Consulting Provider: Lina See Consult Reason/Comments: sepsis Do you want consulting provider notified?: Yes 09/02/17 10:45 Consult Physician Routine Consulting Provider: Dmitriy Garcia Consult Reason/Comments: removal of peritoneal dialysis catheter Do you want consulting provider notified?: Yes 09/02/17 11:04 Consult Physician Routine Consulting Provider: Srikanth Peacock Consult Reason/Comments: hemodialysis port insertion Do you want consulting provider notified?: Yes 09/05/17 14:40 Consult Physician Urgent Consulting Provider: Narda Stallworth Consult Reason/Comments: Hypothyroidism Do you want consulting provider notified?: Yes Primary care physician: Mario Maldonado [facility] Course: Discharge diagnoses: #1 sepsis secondary to acute bacterial peritonitis and CAPD catheter with fusiform bacteria/bacteroids. Was on Unasyn. Changes to vancomycin and responded well with improving leukocytosis. #2 end-stage renal disease, dialysis dependent. #3 highly elevated white count secondary to leukemoid reaction most probably #4 patient was evaluated for atrial fibrillation by cardiology although patient appears to have PACs area #5 hyperthyroidism new-onset for which patient is on methimazole which will be continued . 10 mg 3 times a day for 7 days followed by 5 mg daily. #6 chronic obstructive pulmonary disease and chronic hypercapnic respiratory failure not in acute exacerbation Hospital course 81-year-old admitted with acute peritonitis and patient's is clinically doing well but patient had diarrhea yesterday because of which C. diff was opted which was negative. Patient was given started on oral vancomycin patient is presently on Unasyn patient's blood cultures were positive for Bacteroides uniform S and anaerobic gram-positive cocci. Patient is significant leukocytosis which is improving now. ID records antibiotics in the form of vancomycin and Flagyl. Nystatin should swallow will be continued for a week.. Patient did improve symptomatically. Having Abdominal pain but improved significantly. Patient is stable to be discharged home and follow with ID clinic as well as hemodialysis. Discharge physical examination PHYSICAL EXAMINATION: Patient is lying in the bed comfortably, no acute distress, awake alert and oriented.. HEENT: Normocephalic. Neck is supple. Pupils reactive. Nostrils clear. Oral cavity is moist. Ears reveal no drainage. Neck reveals no JVD, carotid bruits, or thyromegaly. CHEST EXAMINATION: Trachea is central. Symmetrical expansion. Lung poon clear to auscultation and percussion. CARDIAC: Normal S1, S2 with no gallops. No murmurs ABDOMEN: Soft. Mildly tender no guarding no rigidity. Bowel sounds normal. No organomegaly. No abdominal bruits. Extremities: reveal no edema. No clubbing or cyanosis Neurologically awake, alert, oriented x3 with well-coordinated movements. No focal deficits noted Skin: No rash or skin lesions. Psychiatric: Operative. Nonsuicidal Musculoskeletal: No joint swelling or deformity. Normal range of motion. Total time taken greater than 35 minutes including 18 minutes for counseling and coordination of care. Patient Condition at Discharge: Stable Plan - Discharge Summary New Discharge Prescriptions: New Furosemide [Lasix] 80 mg PO BID@0900,1600 tab HYDROcodone/APAP 5-325MG [[place] 5-325] 1 each PO Q6HR PRN #20 tab PRN Reason: Moderate Pain Lactulose [Cephulac] 20 gm PO BID dose Simethicone Chew [Mylicon Chew] 80 mg PO QID PRN PRN Reason: Dyspepsia metroNIDAZOLE [Flagyl] 500 mg PO TID #30 tab Metoprolol Tartrate [Lopressor] 25 mg PO BID tab Vancomycin 1,250 mg IVPB ONCE #14 day Nystatin 100,000 Unit/ml Susp [Mycostatin Oral Susp] 500,000 unit PO QID #30 dose Methimazole [Tapazole] 5 mg PO DAILY #30 tablet Methimazole [Tapazole] 10 mg PO TID #21 tab Losartan [Cozaar] 50 mg PO DAILY #30 tab Continue Latanoprost Ophth [Xalatan 0.005%] 1 drops LEFT EYE HS Dorzolamide HCl/Timolol Maleat [Cosopt Eye Drops] 1 drop LEFT EYE BID prednisoLONE ACETATE 1% OPHTH [Pred Forte 1%] 1 drop RIGHT EYE BID Ketorolac 0.5% Ophth Soln [Acular 0.5%] 1 drops RIGHT EYE BID Vit C/E/Zn/Coppr/Lutein/Zeaxan [Preservision Areds 2 Softgel] 1 cap PO BID Fluticasone Nasal [place] [Flonase Nasal [place]] 1 spr EA NOSTRIL DAILY Cholecalciferol [Vitamin D3] 2,000 unit PO DAILY Potassium Chloride [K-Tab ER] 10 meq PO DAILY Aspirin 81 mg PO DAILY #0 chew Calcitriol 0.5 mcg PO MOFR Magnesium Oxide [Mag-Ox] 400 mg PO DAILY Vitamin B12 Sl 500 mcg PO DAILY Calcium Carb-Mag Carb-Folic [Magnebind 400] 1 tab PO W/LUNCH Discontinued Metoprolol Tartrate 25 mg PO DAILY Discharge Medication List Dorzolamide HCl/Timolol Maleat [Cosopt Eye Drops] 1 drop LEFT EYE BID 05/10/14 [ History] Ketorolac 0.5% Ophth Soln [Acular 0.5%] 1 drops RIGHT EYE BID 05/10/14 [History] Latanoprost Ophth [Xalatan 0.005%] 1 drops LEFT EYE HS 05/10/14 [History] prednisoLONE ACETATE 1% OPHTH [Pred Forte 1%] 1 drop RIGHT EYE BID 05/10/14 [ History] Cholecalciferol [Vitamin D3] 2,000 unit PO DAILY 06/10/16 [History] Fluticasone Nasal [place] [Flonase Nasal [place]] 1 spr EA NOSTRIL DAILY 06/10/16 [ History] Potassium Chloride [K-Tab ER] 10 meq PO DAILY 06/10/16 [History] Vit C/E/Zn/Coppr/Lutein/Zeaxan [Preservision Areds 2 Softgel] 1 cap PO BID 06/10 [History] Aspirin 81 mg PO DAILY #0 chew 06/13/16 [Rx] Calcitriol 0.5 mcg PO MOFR 08/29/17 [History] Calcium Carb-Mag Carb-Folic [Magnebind 400] 1 tab PO W/LUNCH 08/29/17 [History] Magnesium Oxide [Mag-Ox] 400 mg PO DAILY 08/29/17 [History] Vitamin B12 Sl 500 mcg PO DAILY 08/29/17 [History] Furosemide [Lasix] 80 mg PO BID@0900,1600 tab 09/05/17 [Rx] HYDROcodone/APAP 5-325MG [[place] 5-325] 1 each PO Q6HR PRN #20 tab 09/05/17 [Rx] Lactulose [Cephulac] 20 gm PO BID dose 09/05/17 [Rx] Simethicone Chew [Mylicon Chew] 80 mg PO QID PRN 09/05/17 [Rx] metroNIDAZOLE [Flagyl] 500 mg PO TID #30 tab 09/05/17 [Rx] Metoprolol Tartrate [Lopressor] 25 mg PO BID tab 09/06/17 [Rx] Losartan [Cozaar] 50 mg PO DAILY #30 tab 09/11/17 [Rx] Methimazole [Tapazole] 5 mg PO DAILY #30 tablet 09/11/17 [Rx] Methimazole [Tapazole] 10 mg PO TID #21 tab 09/11/17 [Rx] Nystatin 100,000 Unit/ml Susp [Mycostatin Oral Susp] 500,000 unit PO QID #30 dose 09/11/17 [Rx] Vancomycin 1,250 mg IVPB ONCE #14 day 09/11/17 [Rx] Follow up Appointment(s)/Referral(s): Dmirtiy Garcia MD [Medical Doctor] - As Needed Mario Okeefe MD [Primary Care Provider] - 1-2 days Lina See MD [STAFF PHYSICIAN] - 2 Weeks Demetrio Edwards MD [STAFF PHYSICIAN] - 4 Weeks Activity/Diet/Wound Care/Special Instructions: Patient is scheduled to receive Hemodialysis at the [facility] on with a chair time of 5:45am. First chair time is scheduled 09/13. Pt is asked to arrive 15 minutes early, at 5:30am for initial appointment. 09/05/17 new right chest HD catheter placed diet cardiac, renal Activity as tolerated Antibiotic per infectious disease, clarified with Dr. See, vancomycin iv with dialysis and oral flagyl to be continued. Discharge Disposition: TRANSFER TO SNF/ECF
[2017-09-11 16:40] VITALS: BP 122/64; TEMP 98.6
[2017-09-11 17:01] VITALS: PULSE 73
== END 2017-09-11 18:30 | DRG 981 ==
LOC: EC 10:36 → 5MS5E 15:45
PROVIDERS: ADMIT Hospitalist; ATTEND Hospitalist
PROC: 3E1M39Z Irrigation of Peritoneal Cavity using Dialysate, Percutaneous Approach (ICD-10-PCS; 2017-08-29)
PROC: B548ZZA Ultrasonography of Superior Vena Cava, Guidance (ICD-10-PCS; 2017-09-02)
PROC: 02HV33Z Insertion of Infusion Device into Superior Vena Cava, Percutaneous Approach (ICD-10-PCS; 2017-09-02 18:00)
PROC: B5161ZA Fluoroscopy of Right Subclavian Vein using Low Osmolar Contrast, Guidance (ICD-10-PCS; 2017-09-02 18:00)
PROC: 5A1D70Z Performance of Urinary Filtration, Intermittent, Less than 6 Hours Per Day (ICD-10-PCS; 2017-09-03)
PROC: 0WPG03Z Removal of Infusion Device from Peritoneal Cavity, Open Approach (ICD-10-PCS; principal; 2017-09-03 09:00)
PROC: 30233N1 Transfusion of Nonautologous Red Blood Cells into Peripheral Vein, Percutaneous Approach (ICD-10-PCS; 2017-09-11)
DX: T85.71XA Infection and inflammatory reaction due to peritoneal dialysis catheter, initial encounter (principal); A41.9 Sepsis, unspecified organism; K65.0 Generalized (acute) peritonitis; N17.9 Acute kidney failure, unspecified; I47.2 Ventricular tachycardia; J96.11 Chronic respiratory failure with hypoxia; N18.6 End stage renal disease; E87.1 Hypo-osmolality and hyponatremia; I12.0 Hypertensive chronic kidney disease with stage 5 chronic kidney disease or end stage renal disease; B37.0 Candidal stomatitis; J96.12 Chronic respiratory failure with hypercapnia; J44.9 Chronic obstructive pulmonary disease, unspecified; I48.91 Unspecified atrial fibrillation; E87.70 Fluid overload, unspecified; E86.0 Dehydration; E83.42 Hypomagnesemia; E05.80 Other thyrotoxicosis without thyrotoxic crisis or storm; D63.1 Anemia in chronic kidney disease; B96.89 Other specified bacterial agents as the cause of diseases classified elsewhere; K59.00 Constipation, unspecified; I49.3 Ventricular premature depolarization; D50.9 Iron deficiency anemia, unspecified; D72.823 Leukemoid reaction; I49.1 Atrial premature depolarization; K57.30 Diverticulosis of large intestine without perforation or abscess without bleeding; K42.9 Umbilical hernia without obstruction or gangrene; H40.9 Unspecified glaucoma; E87.6 Hypokalemia; R26.9 Unspecified abnormalities of gait and mobility; E88.9 Metabolic disorder, unspecified; E03.9 Hypothyroidism, unspecified; E78.5 Hyperlipidemia, unspecified; M19.91 Primary osteoarthritis, unspecified site; Z79.82 Long term (current) use of aspirin; Z79.899 Other long term (current) drug therapy; Z99.2 Dependence on renal dialysis; Z96.653 Presence of artificial knee joint, bilateral; Z96.641 Presence of right artificial hip joint; Z88.8 Allergy status to other drugs, medicaments and biological substances; Y83.8 Other surgical procedures as the cause of abnormal reaction of the patient, or of later complication, without mention of misadventure at the time of the procedure
CPT/HCPCS: 36415; 36558; 71010; 71020; 71250; 74020; 74176; 76937; 77001; 80048; 80051; 80053; 80202; 81001; 82150; 83540; 83550; 83605; 83690; 83735; 84100; 84439; 84443; 84484; 85025; 85610; 85730; 86850; 86900; 86901; 86920; 87040; 87070; 87086; 87205; 87324; 87340; 89050; 90935; 93005; 93306; 96365; 99285